=== PATIENT | female | born 1965 | race Caucasian/White ===

== ENCOUNTER 2024-11-18 13:43 | Outpatient (CLI) | payer BC, OTHER, SELFPAY ==
--- NOTE | ~2024-11-18 | CT_ITS ---
CT of the Abdomen and Pelvis: Indication: Hematuria Technique: 2.5 mm axial scans were obtained through the abdomen and pelvis prior to and following in travenous administration of 130 cc of Omnipaque 350. Dose reduction technique was used on this scan b y utilizing automated exposure control and iterative reconstruction technique. The dose-length produc t (DLP) was 2774.29 mGy-cm. Findings: Scans through the lung bases there is a 5 mm basilar pulmonary nodule (axial image 30). Th ere is a 1.5 x 0.9 cm nodular opacity in the medial right middle lobe (axial image 12). Partially alden ged tubular structure present left lower lobe on image 1, with imaging appearance suggestive of AVM. There is a 1.7 x 1.0 cm ovoid stone at the left renal pelvis. There is mild left hydronephrosis. [place] tional left renal stones measure 1.0 cm and 1.1 cm in maximum diameter. Nonobstructing right renal st ones measuring up to 0.5 cm in maximum diameter. No ureteral stone or hydronephrosis on the right pedro e. There is diffuse fatty infiltration of the liver probably present. The spleen, pancreas, and adrenal glands are within normal limits. Cholecystectomy clips are present. No evidence of aortic aneurysm. No lymphadenopathy. No bowel obstruction or bowel wall thickening. There is no evidence to suggest acute appendicitis. Images through the pelvis were performed. Urinary bladder unremarkable. Status post hysterectomy. No pelvic mass. No ascites. Impression: 1.7 x 1.0 cm left renal pelvis stone with mild left hydronephrosis. Additional bilateral nonobstructing stones, as detailed above, left larger than right. Diffuse fatty infiltration of liver. Partially imaged suspected left lower lobe pulmonary AVM, as noted above. Additional pulmonary nodule s at the right lung base, largest measuring 1.5 cm the right middle lobe. Dedicated contrast-enhanced chest CT recommended to further evaluate the suspected AVM, as well as the right middle lobe nodule. Reviewed, dictated and finalized at location M. Impression: 1.7 x 1.0 cm left renal pelvis stone with mild left hydronephrosis. Additional bilateral nonobstructing stones, as detailed above, left larger than right. Diffuse fatty infiltration of liver. Partially imaged suspected left lower lobe pulmonary AVM, as noted above. Addit ional pulmonary nodules at the right lung base, largest measuring 1.5 cm the ri ght middle lobe. Dedicated contrast-enhanced chest CT recommended to further ev aluate the suspected AVM, as well as the right middle lobe nodule.
--- OUTSIDE RECORDS SUMMARY | 2024-11-18 15:08 | XMS_ITS | Encounter Summary ---
Author Organization [facility] Address [address] [place] [address] Care Team Providers Care Skirt Clipper Name Role Phone Unavailable Primary Care Provider Unavailabl e Encounter Details Date Type Department Care Team (Late st Contact Info) Description 01/25/2020 Lab Requisition [facility] DermPath Lab [address] [facility], [facility] [place] [address] Lupe Davis DO [address] [facility] [address] [place] [address] Social History Tobacco Use Types Packs/Day Years Used Date Smoking Tobacco: Never Assessed Comments Unknown Sex and Gender Information Value Date Recorded Sex Assigned at Not on file Legal Sex Female 4:24 PM CDT Gender Identity Not on file Sexual Orientation Not on file documented as of this encounter Plan of Treatment Not on file documented as of this encounter Procedures Procedure Name Priority Date/Time Associated Diagnosis Comments DERMATOPATHOLOGY Routine 01/21/2020 12:0 0 AM CDT documented in this encounter Results * DERMATOPATHOLOGY (01/21/2020 12:00 AM CDT) Case Report Dermatopathology Report Case: [id number] Authorizing Provider: Lupe Davis DO Collected: 01/21/2020 12:00 AM Ordering Location: [facility] DermPath Lab Received: 01/25/2020 12:04 PM Pathologist: Daysi Loving MD Specimen: Skin, right upper arm 0 4:32 PM CDT DERMATOPATHOLOGY LABORATORY Final Diagnosis Specimen A. SKIN, right upper arm: COMEDONE (L70.8) HEALING SKIN CHANGES (L90.5) (see microscopic description) 0 4:32 PM CDT DERMATOPATHOLOGY LABORATORY Clinical History Folliculitis vs PN R/O NMSC bleeding. 0 4:32 PM CDT DERMATOPATHOLOGY LABORATORY Gross Description Specimen A: Received is one formalin filled container labeled with the patient's name and designated right upper arm. The specimen consists of a shave measuring [id number]. Jar 0. 0 4:32 PM CDT DERMATOPATHOLOGY LABORATORY Microscopic Description Specimen A. SKIN, right upper arm: There is a dilated follicular infundibulum with keratinous plug. There is adjacent epidermal hyperplasia beneath which there are vascular proliferation, fibroblasts, and an edematous stroma. There is no evidence of epithelial dysplasia or malignancy in the sections examined. 0 4:32 PM CDT DERMATOPATHOLOGY LABORATORY Disclaimer An external and internal positive and negative controls are appropriate for the histochemical, immunohistochemical and immunofluorescence stain(s) in this case (if any), except where stated explicitly. The performance characteristics of the stain(s) cited in this report were developed and its performance characteristic determined by the Dermatopathology Laboratory at [facility], directed by Dr. Verónica Mendoza. These tests need not be, and therefore are not, approved by the [place] Food and Drug Administration. The tests are used for clinical purposes. Billing Codes Specimen Charges Stain Charges 44854 1 0 4:32 PM CDT DERMATOPATHOLOGY LABORATORY Embedded Images 0 4:32 PM CDT DERMATOPATHOLOGY LABORATORY Pathology/Cytolog y TISSUE SPECIMEN FROM SKIN / Unknown 01/21/2020 01/25/2020 12:04 PM CDT us Lupe Davis DO LAB - PATHOLOGY/CYTOLOGY ORDERABLES Final Result DERMATOPATHOLOGY LABORATORY [facility] - Department of Dermatology Risk Control Specialist [address] [address], [facility] [phone] documented in this encounter Visit Diagnoses Not on filedocumented in this encounter
--- OUTSIDE RECORDS SUMMARY | 2024-11-18 15:08 | XMS_ITS | Encounter Summary ---
Author Organization [facility] Address [address] [place] [address] Care Team Providers Care Public Aid Eligibility Assistant Name Role Phone Unavailable Primary Care Provider Unavailabl e Encounter Details Date Type Department Care Team (Late st Contact Info) Description 05/05/2019 Lab Requisition [facility] DermPath Lab [address] [facility], [place] [address] Lupe Davis DO [address] [facility] [address] [place] [address] Social History Tobacco Use Types Packs/Day Years [...] Priority Date/Time Associated Diagnosis Comments DERMATOPATHOLOGY Routine 05/04/2019 12:0 0 AM CDT documented in this encounter Results * DERMATOPATHOLOGY (05/04/2019 12:00 AM CDT) Case Report Dermatopathology Report Case: [id number] Authorizing Provider: Lupe Davis DO Collected: 05/04/2019 12:00 AM Ordering Location: [facility] DermPath Lab Received: 05/05/2019 12:15 PM Pathologist: Kailey Hernadez MD Specimens: A) - Skin, right upper arm B) - Skin, right forearm C) - Skin, left FA distal D) - Skin, left FA proximal 9 1:21 PM CDT DERMATOPATHOLOGY LABORATORY Final Diagnosis Specimen A. SKIN, right upper arm: BASAL CELL CARCINOMA, SUPERFICIAL MULTIFOCAL (C44.612) Specimen B. SKIN, right forearm: ACTINIC KERATOSIS, LICHENOID (L57.0) Specimen C. SKIN, left FA distal: ACTINIC KERATOSIS, PIGMENTED (L57.0) Specimen D. SKIN, left FA proximal: ACTINIC KERATOSIS, LICHENOID (L57.0) 1:21 PM [facility] [place] 2[place] DERMATOPATHOLOGY LABORATORY Clinical History A-B: R/O NMSC. C: R/O MM. D: R/O NMSC. 1:21 PM [facility] [place] DERMATOPATHOLOGY LABORATORY Gross Description Specimen A: Received is one formalin filled container labeled with the patient's name and designated right upper arm. The specimen consists of a shave measuring [id number]. Jar 0. Specimen B: Received is one formalin filled container labeled with the patient's name and designated right forearm. The specimen consists of a shave measuring [id number]. Jar 0. Specimen C: Received is one formalin filled container labeled with the patient's name and designated left FA distal. The specimen consists of a shave measuring [id number]. Jar 0. Specimen D: Received is one formalin filled container labeled with the patient's name and designated left FA proximal. The specimen consists of a shave measuring [id number]. Jar 0. 1:21 PM [facility] [place] 2[facility] DERMATOPATHOLOGY LABORATORY Microscopic Description Specimen A. SKIN, right upper arm: Attached to the undersurface of the epidermis, there are small aggregates of basaloid cells with a high nuclear to cytoplasmic ratio and peripheral palisading. Specimen B. SKIN, right forearm: There is focal parakeratosis. The lower half of the epidermis shows disorderly maturation of keratinocytes with nuclear pleomorphism. The dermis shows a band-like, chronic inflammatory infiltrate with occasional apoptotic keratinocytes and some basal vacuolar alteration. Specimen C. SKIN, left FA distal: There is alternating orthokeratosis and parakeratosis. Along the undersurface of the epidermis, there are buds of atypical keratinocytes in a disorderly arrangement. There is prominent pigmentation in some of the keratinocytes. Specimen D. SKIN, left FA proximal: There is focal parakeratosis. The lower half of the epidermis shows disorderly maturation of keratinocytes with nuclear pleomorphism. The dermis shows a band-like, chronic inflammatory infiltrate with occasional apoptotic keratinocytes and some basal vacuolar alteration. 9 1:21 PM CDT DERMATOPATHOLOGY LABORATORY Disclaimer An external and internal positive and negative controls are appropriate for the histochemical, immunohistochemical and immunofluorescence stain(s) in this case (if any), except where stated explicitly. The performance characteristics of the stain(s) cited in this report were developed and its performance characteristic determined by the Dermatopathology Laboratory at [facility], directed by Dr. Verónica Mendoza. These tests need not be, and therefore are not, approved by the [place] Food and Drug Administration. The tests are used for clinical purposes. Billing Codes Specimen Charges Stain Charges 63659 46399 [id number] 1 1 1 1 9 1:21 PM CDT DERMATOPATHOLOGY LABORATORY Embedded Images 9 1:21 PM CDT DERMATOPATHOLOGY LABORATORY Pathology/Cytology TISSUE SPECIMEN FROM SKIN / Unknown 05/04/2019 05/05/2019 12:15 PM CDT Miscellaneous samples (specimen) TISSUE SPECIMEN FROM SKIN / Unknown 05/04/2019 05/05/2019 12:15 PM CDT Miscellaneous samples (specimen) TISSUE SPECIMEN FROM SKIN / Unknown 05/04/2019 05/05/2019 12:15 PM CDT Miscellaneous samples (specimen) TISSUE SPECIMEN FROM SKIN / Unknown 05/04/2019 05/05/2019 12:15 PM CDT us Lupe Davis DO LAB - PATHOLOGY/CYTOLOGY ORDERABLES Final Result DERMATOPATHOLOGY LABORATORY [facility] - Department of Dermatology [address] [place] [address] [address] [place] [address], [facility] [phone] documented in this encounter Visit Diagnoses Not on filedocumented in this encounter
--- OUTSIDE RECORDS SUMMARY | 2024-11-18 15:08 | XMS_ITS | Clinical Summary ---
Author Organization [facility] Office Center Address [address] [place] [address] Care Team Providers Care Recreation Teacher Name Role Phone Elodia Brunson NP Primary Care Provider [phone] Allergies No known active allergies Medications meloxicam (MOBIC) 15 mg tablet Take 1 tablet (15 mg total) by mouth daily 3 Active desloratadine (CLARINEX) 5 mg tabletIndicatio ns:Non-seasonal allergic rhinitis, unspecified trigger Take 1 tablet by mouth daily as needed for congestion. 90 tablet 3 4 Active valACYclovir (VALTREX) 1 gram tabletIndicatio ns:Recurrent cold sores TAKE 2 TABLETS (2,000 MG TOTAL) BY MOUTH TWICE A DAY 12 tablet 4 Active atorvastatin (LIPITOR) 20 mg tablet TAKE 1 TABLET BY MOUTH EVERY DAY 100 tablet 5 Active bisoprolol (ZEBETA) 5 mg tablet TAKE 1 TABLET (5 MG TOTAL) BY MOUTH DAILY. 100 tablet 5 Active atorvastatin (LIPITOR) 20 mg tablet Take 1 tablet (20 mg total) by mouth daily 90 tablet 1 4 025 Discontinued bisoprolol (ZEBETA) 5 mg tablet Take 1 tablet (5 mg total) by mouth daily 90 tablet 1 4 025 Discontinued sulfamethoxazol e-trimethoprim (BACTRIM DS) 800-160 mg per tabletIndicatio ns:UTI symptoms Take 1 tablet by mouth 2 (two) times a day for 7 days 14 tablet 5 025 Active Problems Problem Noted Date Diagnosed Date Encounter for diabetic foot exam 06/16/2024 Assessment & Plan (06/16/2024 7:40 AM SUPERVISOR PAPER MACHINE): Diabetic foot exam performed with monofilament, no abnormal findings Class 3 severe obesity due t o excess calories with body mass index (BMI) of 45.0 to 49.9 in adult 06/15/2024 Assessment & Plan (06/15/2024 11:19 AM SUPERVISOR PAPER MACHINE): Chronic, stable Encouraged to: Make healthy food choices, limiting intake of concentrated sweets, cholesterol, and saturated fat Monitor daily caloric intake and portion sizes Exercise most days of the week for a goal of at least 150 minutes of exercise per week Encounter for screening mamm ogram for malignant neoplasm of breast 07/10/2023 Elevated ALT measurement 07/10/2023 Assessment & Plan (06/15/2024 11:19 AM SUPERVISOR PAPER MACHINE): Chronic, stable Encouraged continued weight loss and a low-fat, low-cholesterol diet Will monitor for stability Assessment & Plan (07/10/2023 4:15 AM SUPERVISOR PAPER MACHINE): Chronic, recurrent, normal at last check Reviewed lab results dated 07/05/2023 Encouraged continued weight loss, low-fat, low-cholesterol diet Ordered CMP to be done prior to next visit Vitamin D deficiency 01/09/2023 Assessment & Plan (06/15/2024 11:17 AM SUPERVISOR PAPER MACHINE): Chronic, stable, not controlled Recommended vitamin D3 5000 IU daily with a meal Will monitor for stability Assessment & Plan (07/10/2023 4:18 AM SUPERVISOR PAPER MACHINE): Chronic, improved Reviewed labs dated 07/05/2023 Recommended vitamin D3 2000 IU daily with a meal Ordered vitamin-D 25 OH to be done prior to next visit Assessment & Plan (01/09/2023 5:25 AM CDT): Chronicity and stability unknown-recommended vitamin D3 2000 IU daily with a meal. Ordered vitamin-D 25 OH to be done in 3 months along with fasting lipid panel TSH level. Elevated TSH 01/09/2023 Assessment & Plan (06/15/2024 11:18 AM SUPERVISOR PAPER MACHINE): Chronicity unknown, normal at most recent check Will monitor for stability Assessment & Plan (07/10/2023 4:15 AM SUPERVISOR PAPER MACHINE): New diagnosis, normal at most recent check Reviewed lab results dated 07/05/2023 Will continue to monitor on occasion Assessment & Plan (01/09/2023 5:34 AM CDT): New diagnosis, normal free T4 and thyroid peroxidase antibodies-ordered TSH level to be drawn in 3 months. On statin therapy 01/09/2023 Assessment & Plan (01/09/2023 5:34 AM CDT): Switch from simvastatin to atorvastatin, ordered hepatic function panel to be done in 3 months with lipid panel. History of carcinoma in situ of anal canal 10/10 Overview (10/10/2022): Added automatically from request for surgery [id number] Assessment & Plan (01/09/2023 5:21 AM CDT): Encouraged to get screening colonoscopies as recommended by bite block maker. Encounter for vitamin deficiency screening 06/26 Assessment & Plan (06/27/2022 12:30 AM SUPERVISOR PAPER MACHINE): Ordered vitamin-D 25 OH. Screening for deficiency anemia 06/26/2022 Assessment & Plan (06/27/2022 12:25 AM SUPERVISOR PAPER MACHINE): Ordered CBC. 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 Assessment & Plan (06/27/2022 12:25 AM SUPERVISOR PAPER MACHINE): Chronic, stable, controlled with medication-continued on Valtrex as directed as needed, refills sent to pharmacy per request. Need for vaccination 06/26/2022 Assessment & Plan (06/27/2022 12:27 AM SUPERVISOR PAPER MACHINE): Influenza vaccine given. Chronic pain of both knees 10/18/2021 Assessment & Plan (06/15/2024 11:17 AM SUPERVISOR PAPER MACHINE): Chronic, stable Continued on meloxicam Can refer for x-rays and/or to orthopedic surgeon for further evaluation and management when interested Assessment & Plan (01/09/2023 5:23 AM CDT): Chronic, stable-advised OTC medication as directed as needed. Can refer for x- rays and/or to orthopedic surgeon for further evaluation and management when interested. Assessment & Plan (10/18/2021 9:20 PM CDT): Had injections years ago and MRI as well. For now she is maintaining. Advise otc voltaren. Consider xrays if pain persists and she wishes to investigate further Controlled type 2 diabetes swetha hinton without complication, without long-term current use of insulin 03/09/2021 Assessment & Plan (06/15/2024 11:16 AM SUPERVISOR PAPER MACHINE): Chronic, uncontrolled/worsened, not on medication Discussed options for treatment, is considering Encouraged weight loss efforts Assessment & Plan (07/10/2023 4:17 AM SUPERVISOR PAPER MACHINE): Chronic, stable Reviewed most recent hemoglobin A1c dated 12/17/2022 Encouraged continued weight loss Ordered CMP and hemoglobin A1c to be done prior to next Assessment & Plan (01/09/2023 5:27 AM CDT): Chronic, stable-encouraged weight loss efforts. Reviewed recent CMP and hemoglobin A1c at visit today. Assessment & Plan (06/27/2022 12:29 AM SUPERVISOR PAPER MACHINE): Chronic, improved with weight loss-ordered hemoglobin A1c and CMP to be done prior to next visit. Encouraged efforts at continued weight loss. Assessment & Plan (06/14/2021 3:42 PM SUPERVISOR PAPER MACHINE): ha1c is 5.8 today- cont saxenda Assessment & Plan (03/09/2021 8:39 AM CDT): ha1c has decreased from 6.4>5.9- this is a tremendous improvement! Cont saxenda. Annual physical exam 09/22/2019 Assessment & Plan (06/15/2024 11:13 AM SUPERVISOR PAPER MACHINE): Reviewed past and current medical history, surgical history, social history, family history, current medications, and allergies. A ROS and PE were performed. Labs were ordered. Discussed screening colonoscopy, screening mammogram, monthly breast self-exams, bone density testing, and recommended immunizations. Patient will follow-up in 6 months, sooner if needed. Assessment & Plan (01/09/2023 5:29 AM CDT): Reviewed past and current medical history, surgical history, social history, family history, current medications, and allergies. A ROS and PE were performed. Labs were ordered. Discussed screening colonoscopy, well woman exam/cervical cancer screening, screening mammogram, monthly breast self-exams, bone density testing, and recommended immunizations. Patient will follow-up in 6 months, sooner if needed. Assessment & Plan (06/14/2021 3:42 PM SUPERVISOR PAPER MACHINE): Second shingrix given today Advise mrna booster in 1-2 weeks after shingrix utd on flu shot, tdap Cont to work on diet and weight loss rtc 4 months Assessment & Plan (09/22/2019 3:17 PM SUPERVISOR PAPER MACHINE): Wear sunscreen while outdoors. Wear seatbelts while in a vehicle. Do not text and drive. Follow a heart healthy diet and lifestyle. Consume 5-7 servings of fruits and vegetables a day. Maintain/attain normal body weight. Maintain good sleep schedule and sleep habits. I recommend that all patients follow a diet that is high in fruits and vegetables and low in processed foods such as sugar and foods that are made with white flour. I recommend using beneficial fats such as olive oil, nuts, seeds and berries and avoiding saturated animal fats. Please stay physically active to the extent that you are able. Test results: if you have not received communication about test results within 7 days of the test being performed, please contact the office. Consider getting Shingrix (shingles vaccine). This is a 2-shot series with each injection given 2-6 months apart. You can obtain the vaccine at most major pharmacies without a prescription Venous stasis dermatitis of both lower extremiti es 09/22/2019 Assessment & Plan (06/15/2024 11:14 AM SUPERVISOR PAPER MACHINE): Chronic, episodic, currently asymptomatic Will monitor for stability Encouraged to elevate legs when able and to wear compression socks or stockings Assessment & Plan (01/09/2023 5:33 AM CDT): Chronic, stasis-will continue to monitor for worsening symptoms or edema. Encouraged elevation of extremities when able and compression socks or stockings. Assessment & Plan (09/22/2019 3:52 PM SUPERVISOR PAPER MACHINE): Work on wt loss Get up and move around while at work ,periodically Wear compression stockings when travelling long distance History of basal cell carcinoma (BCC) of skin Overview (09/22/2019): r upper arm, Dr Davis Assessment & Plan (01/09/2023 5:28 AM CDT): Encouraged to follow-up with dermatology as recommended. Assessment & Plan (09/22/2019 3:53 PM SUPERVISOR PAPER MACHINE): Sunscreen Cont close surveillance with digital developer Non-seasonal allergic rhinitis 09/22/2018 Overview (09/22/2019): Allergic to dust and mold Assessment & Plan (06/15/2024 11:11 AM SUPERVISOR PAPER MACHINE): Chronic, stable, controlled with medication Continued on Clarinex Assessment & Plan (01/09/2023 5:32 AM CDT): Chronic, stable, controlled with medication-continued on Clarinex. Assessment & Plan (09/22/2019 3:36 PM SUPERVISOR PAPER MACHINE): Cont clarinex daily Mixed hyperlipidemia 09/23/2017 Assessment & Plan (06/15/2024 11:12 AM SUPERVISOR PAPER MACHINE): Chronic, uncontrolled, with minimally elevated triglycerides and low HDL Continued on atorvastatin Recommended low-fat/low-cholesterol diet, high in fiber and plant protein Assessment & Plan (07/10/2023 4:16 AM SUPERVISOR PAPER MACHINE): Chronic, uncontrolled, with minimally elevated triglycerides and LDL (184, 102 respectively) Continued on atorvastatin Recommended low-fat/low-cholesterol diet, high in fiber implant protein Ordered lipid panel to be done prior to next visit Assessment & Plan (01/09/2023 5:19 AM CDT): Chronic, stable, uncontrolled-discontinued simvastatin. Started on atorvastatin 20 mg once daily. Ordered lipid panel and hepatic function panel to be done in approximately 3 months for further evaluation of lipids. Assessment & Plan (06/27/2022 12:26 AM SUPERVISOR PAPER MACHINE): Chronic, stable, with slight elevation in triglycerides at last check-continued on simvastatin. Lipid panel ordered prior to next visit. Assessment & Plan (02/23/2022 10:53 AM CDT): c Assessment & Plan (06/14/2021 3:40 PM SUPERVISOR PAPER MACHINE): Suspect cholesterol will be much better, check now, dec dose if possible and recheck before our next appt in 4 months at which time I Hope to stop it Assessment & Plan (05/06/2020 3:16 PM CDT): Cont low chol diet and medication Cont to monitor liver panel Assessment & Plan (09/22/2019 3:38 PM SUPERVISOR PAPER MACHINE): Take the chol pill daily in am. Lipids in 6mos Essential (primary) hypertension 09/19/2017 Assessment & Plan (06/15/2024 11:11 AM SUPERVISOR PAPER MACHINE): Chronic, stable, controlled with medication Continued on bisoprolol Assessment & Plan (01/23/2024 12:30 PM CDT): Chronic, stable, controlled with medication Continued on bisoprolol Assessment & Plan (07/10/2023 4:15 AM SUPERVISOR PAPER MACHINE): Chronic, stable, controlled with medication Continued on bisoprolol Ordered CMP be done prior to next visit Assessment & Plan (01/09/2023 5:19 AM CDT): Chronic, stable, controlled with medication-reviewed recent CMP. Continued on bisoprolol. Assessment & Plan (06/27/2022 12:28 AM SUPERVISOR PAPER MACHINE): Chronic, stable, controlled with medication-continued bisoprolol. Ordered CMP to be done prior to next visit. Assessment & Plan (02/23/2022 10:52 AM CDT): Controlled on bisoprolol Assessment & Plan (06/14/2021 3:40 PM SUPERVISOR PAPER MACHINE): Looking great! With weight loss, d/c hctz and cont on bisoprolol only- possibly dc this at our next appt! Assessment & Plan (03/09/2021 8:37 AM CDT): bp looks great! No changes today, my hope is to eventually stop her bp meds but for now woud continue Assessment & Plan (01/05/2021 12:30 PM CDT): Uncontrolled, but likely d/t stress Did take her ziac this am Check at home and get me numbers! Assessment & Plan (05/06/2020 3:02 PM CDT): bp is controlled Cont regimen Try to exercise more regularly for cv health Assessment & Plan (09/22/2019 3:36 PM SUPERVISOR PAPER MACHINE): Follow low sodium DASH Diet. Exercise regularly for CV health and weight loss. Achieve or Maintain normal BMI/Weight. Take medications as prescribed. Report if having porblems with the medication or if develops Chest pains. Monitor BP occly and record. Report if BP consistently over 160/90 or under 90/60 and dizzy and LH. BP is controlled and stable. Mixed incontinence urge and stress 09/19/2017 Assessment & Plan (06/15/2024 11:13 AM SUPERVISOR PAPER MACHINE): Chronic, stable, controlled without medication Will monitor for stability Assessment & Plan (01/09/2023 5:32 AM CDT): Chronic, stable, controlled without medication-will continue to monitor for worsening symptoms,if occurs and is interested, can refer for pelvic floor physical therapy, consider medication, and/or refer to supervisor tank cleaning for further evaluation and management. Personal history of colon cancer, stage II 09/19 Overview (09/22/2019): no chemo/rx, just removal of the tumors and ff up areas carly, age 38, 3 large polyps cancerous removed. Colonoscopy 05/2010, Dr Reynolds. Assessment & Plan (01/09/2023 5:26 AM CDT): Encouraged to get screening colonoscopy as recommended by bite block maker. Assessment & Plan (06/14/2021 3:41 PM SUPERVISOR PAPER MACHINE): Repeat is due 11/2022 Assessment & Plan (09/22/2019 3:35 PM SUPERVISOR PAPER MACHINE): Patient to check with Dr Reynolds as to when her next ff up colonoscopy is due Resolved Problems Problem Noted Date Diagnosed Date Resolved Date UTI symptoms 01/23/2024 06/15/2024 Assessment & Plan (01/23/2024 12:29 PM CDT): Acute Urine dip positive for protein and blood, sent for urine culture Started on Keflex 500 mg twice daily Reviewed supportive care measures Strict return precautions given Acute cough 06/11/2023 07/10/2023 Assessment & Plan (06/11/2023 10:35 AM SUPERVISOR PAPER MACHINE): VSS (low grade temp 99.5F), NAD, lungs CTAB Sx duration 2.5 weeks approximately Recent COVID 05/23/2023 Possible bronchitis . Ddx secondary bacterial PNA post COVID Medrol dose pack Augmentin, azithromycin Tessalon as needed as cough suppressant ER for CP, SOB, vomiting, dizziness, persisting fevers Colon polyps 10/10/2022 01/09/2023 Overview (10/10/2022): Added automatically from request for surgery [id number] Encounter to establish care 06/26/2022 01/09/2023 Assessment & Plan (06/27/2022 12:30 AM SUPERVISOR PAPER MACHINE): Reviewed past and current medical history, surgical history, social history, family history, current medications, and allergies. A ROS and PE were performed. Medication was refilled and labs were ordered. Discussed screening colonoscopy, well woman exam/cervical cancer screening, screening mammogram, monthly breast self-exams, and recommended immunizations. Patient will follow-up in 6 months for annual exam, sooner if needed. Scalp lesion 03/09/2021 01/09/2023 Assessment & Plan (03/09/2021 8:38 AM CDT): No overlying skin changes, very small dave growth on scalp. No further workup indicated at this time. If she notices it growing, notices skin changes overlying this lesion or develops headaches would get CT Left leg swelling 01/05/2021 01/09/2023 Assessment & Plan (01/05/2021 12:34 PM CDT): Venous doppler to r/o dvt B/l swelling but L def > R Echo to r/o diastolic dysfunction and chf Ab US liver as transaminitis Transaminitis 01/05/2021 01/09/2023 Assessment & Plan (06/27/2022 12:25 AM SUPERVISOR PAPER MACHINE): Chronic, present in 2019 and 2020, now resolved upon most recent check, likely improved with weight loss-will continue to monitor periodically. Encouraged continued weight loss. Assessment & Plan (01/05/2021 12:36 PM CDT): On statin Has had weight gain Liver us to further investigate Croup 09/22/2019 05/05/2020 Assessment & Plan (09/22/2019 3:51 PM SUPERVISOR PAPER MACHINE): Doxycycline 100mg po bid x 10d Coricidin HBP or guaifenesin DM ok to take for the cough Rest and hydrate Call if high fever, sob, worsening sx Encounters Date Type Department Care Team Description 10/21/2024 Telephone [facility] at [address] [phone] Elodia Brunson NP 10/20/2024 Telephone [facility] at [address] [phone] Elodia Brunson NP Recommendation Request 10/16/2024 Results Follow-Up [facility] at [address] [phone] Ann Larsen NP 10/15/2024 9:31 PM CDT - 10/15/2024 11:59 PM CDT Hospital Encounter [address] [address] UTI symptoms Discharge Disposition: Discharge to home or self care 10/15/2024 4:30 PM CDT Office Visit [facility] at [address] [phone] Ann Larsen NP UTI symptoms (Primary Dx); Gross hematuria 10/15/2024 Telephone [facility] [place] [address] [place] [address] Ann Larsen NP Blood in Urine 10/15/2024 Nurse Triage [facility] at [place] [address] [place] [address] Susan Bradford RN from Last 3 Months Immunizations Immunization Administration Dates Next Due Influenza, Quadrivalent, Janice l Culture-based MDCK, Preservative Free, Antibiotic Free, Intramuscular 05/22/2021 Influenza, Quadrivalent, Spl it, Preservative Free, Intramuscular 07/08/2023,06/27/2022,04/20/2020 Influenza, Trivalent, Preser vative Free, Intramuscular 06/15/2024 Pfizer SARS-CoV-2 Monovalent Vaccination (12+ Yrs) PURPLE 10/25/2020,10/03/2020 Pneumococcal Conjugate PCV 13 09/22/2018 Pneumococcal Conjugate Pcv20 06/15/2024 Tdap 03/19/2022,03/04/2014 ZOSTER Recombinant 06/14/2021,03/08/2021 Surgical History Surgery Date Site/Laterality Comments COLONOSCOPY W/ BIOPSIES FOOT SURGERY GALLBLADDER SURGERY RECTAL SURGERY SKIN CANCER EXCISION Right basel cell carcinoma on Right arm, Dr Davis HYSTERECTOMY partial BREAST BIOPSY 06/25/2018 Left CHOLECYSTECTOMY Medical History Medical History Date Comments Hyperlipidemia Benign hypertension Personal history of colonic polyps Allergic rhinitis Malignant neoplasm cervix (HCC) Herpes zoster Colon cancer (HCC) 2003 Cervical cancer (HCC) 1995 Arthritis knees Colon polyps 10/10/2022 Added automatica lly from request for surgery [id number] Scalp lesion 03/09/2021 Transaminitis 01/05/2021 Left leg swelling 01/05/2021 Family History Medical History Relation Name Comments Cancer Maternal Grandmother Grandmother Heart disease Maternal Grandmother Grandmother Breast cancer Neg Hx Relation Name Status Comments Father Alive Maternal Grandmother Grandmother Mother Alive Social History Tobacco Use Types Packs/Day Years Used Date Smoking Tobacco: Never Smokeless Tobacco: Never Tobacco Cessation:Counseling Given: Not Answered Alcohol Use Standard Drinks/Week Comments Yes 0 (1 standard drink = 0.6 oz pur e alcohol) AUDIT-C Answer Date Recorded Q1: How often do you have a drink containing alc ohol? Monthly or less 12/14/2022 Q2: How many drinks containi ng alcohol do you have on a typical day when you are drinking? 1 or 2 12/14/2022 Q3: How often do you have si x or more drinks on one occasion? Less than monthly 12/14/2022 PHQ-2 Answer Date Recorded PHQ-2 Total Score (If total score is 3 or more points, staff should administer the PHQ-9) 0 06/15/2024 Personal Safety Answer Date Recorded Have you ever been in or are you currently in a harmful physical or emotional relationship or is someone making you feel afraid or unsafe? Denies 12/14/2022 Comments No Sex and Gender Information Value Date Recorded Sex Assigned at Not on file Legal Sex Female 6:21 AM SUPERVISOR PAPER MACHINE Gender Identity Female 12/29/2020 6:34 AM CDT Sexual Orientation Straight 10/04/2020 6: 47 AM SUPERVISOR PAPER MACHINE Occupation Industry Job Start Date Job End Date Not on file Not on file Not on file Not on file Obstetrics History Para Term AB IAB SAB Ectopic Multiple Livin g Live Births 5 3 3 Date Outcome GA Total Labor Labor/2nd/3rd Weight Sex Type Anes PTL Celia A1 A5 Name Clin Term Term Term Last Filed Vital Signs Vital Sign Reading Time Taken Comments Blood Pressure 134/80 10/15/2024 4:24 PM CDT Pulse 85 10/15/2024 4:24 PM CDT Temperature 36.7 C (98.1 F) 10/15/2024 4:24 PM CDT Respiratory Rate 18 10/15/2024 4:24 PM CDT Oxygen Saturation 96% 10/15/2024 4:24 PM CDT Inhaled Oxygen Concentration - - Weight 120.2 kg (265 lb) 10/15/2024 4:24 PM CDT Height 155.5 cm (5' 1.22 ) 10/15/2024 4:24 PM CD T Body Mass Index 49.71 10/15/2024 4:24 PM CDT Plan of Treatment Health Maintenance Due Date Last Done Comments Albumin Creatinine Ratio, Urine 1966 Hepatitis C Screening 1965 Dilated Eye Exam 1966 Hepatitis B Screening 1984 Zoster Vaccine (2 of 2) 06/14/2021 06/14/2021, 03/08 Covid-19 Vaccine (5 - 2023-2 5 season) 2024 02/26/2022, 07/08/2021, 10/25/2020, Additional history exists Hemoglobin A1C 11/21/2024 05/23/2024, 12/03, 01/13/2022, Additional history exists Lipid Panel 05/23/2025 05/23/2024, 12/0 08/2022, 12/17/2022, Additional history exists eGFR 05/23/2025 05/23/2024, 12/03, 01/13/2022, Additional history exists Depression Screening 06/15/2025 06/15/2024, 01/23/2024, 01/07/2023, Additional history exists Foot Exam 06/15/2025 06/15/2024 Regular Well Visit/Exam 18-64 06/15/2025, 01/07/2023, 06/14/2021, Additional history exists Breast Cancer Screening-Mammogram 07/27/2025 07/27/2024, 07/25/2023, 07/12/2022, Additional history exists Colon Cancer Screening-Colonoscopy 12/15/2027 12/14/2022, 11/11/2017 DTaP/Tdap/Td Vaccine (3 - Td or Tdap) 03/19/2032 03/19/2022, 03/04/2014 Cervical Cancer Screening Discontinued 10/03/2017, 08/2017 Colon Cancer Screening-CT Colonography Discontinued 12/14/2022, 11/11/2017 Colon Cancer Screening-DNA Stool Discontinued 12/15/19, 11/11/2017 Colon Cancer Screening-FIT Discontinued 12/14/2022, Colon Cancer Screening-Sigmoidoscopy Discontinued 12/14/2022, 11/11/2017 Influenza Vaccine Completed 06/15/2024, , 06/27/2022, Additional history exists Pneumococcal vaccine <65 Completed 06/15/2024, 09/05 Procedures Procedure Name Priority Date/Time Associated Diagnosis Comments URINE CULTURE Routine 10/15/2024 9:35 PM CDT UTI symptoms POCT URINALYSIS DIPSTICK Routine 10/15/2024 4:40 PM CDT UTI symptoms SCREENING MAMMOGRAM BILATERAL W MICHOACANO Schedule Routine, Read Routine (OP Routine) 07/27/2024 1:17 PM SUPERVISOR PAPER MACHINE Screening mammogram, encounter for COMPREHENSIVE METABOLIC PANEL Routine 05/23/2024 8:50 AM CDT Elevated ALT measurement Class 3 severe obesity due to excess calories without serious comorbidity with body mass index (BMI) of 45.0 to 49.9 in adult (HCC) Essential (primary) hypertension Prediabetes HEMOGLOBIN A1C Routine 05/23/2024 8:50 AM CDT Class 3 severe obesity due to excess calories without serious comorbidity with body mass index (BMI) of 45.0 to 49.9 in adult (HCC) Prediabetes LIPID PANEL Routine 05/23/2024 8:50 AM CDT Mixed hyperlipidemia COLONOSCOPY 12/14/2022 8:07 AM CDT THINPREP SERVICE BAR CASHIER PAP (IMAGE GUIDED) LIQUID-BASED PREP Routine 10/03/2017 3:52 PM SUPERVISOR PAPER MACHINE from Last 3 Months or Most Recently Relevant to Health Maintenance Results * Urine culture Urine, clean voided (10/15/2024 9:35 PM CDT) Report Final Report: Less than 100,000 colonies/mL (clinically insignificant growth based on current clinical standards) Organism (CLINICALLY INSIGNIFICANT [facility]TH [facility] Urine, clean voided 10/15/2024 9:35 PM CDT 10/15/2024 9:47 PM CDT Narrative [facility] - 10/17/2024 8:33 AM CDT Testing performed by [facility] ([phone]) Ann Larsen NP LAB MICROBIOLOGY - GENERAL [place] Final Result [facility] Department [place] [address] * (ABNORMAL) POCT urinalysis dipstick (10/15/2024 4:40 PM CDT) Color, Urine, POC Dark Yellow Clarity, ur, POC Turbid(A) Clear Glucose, ur, POC Negative Negative MG/DL Bilirubin, ur, POC Small Negative, Small, Moderate, Large Ketones, ur, POC Negative Negative Specific [place], POC 1.030 1.003 - 1.030 Blood, ur, POC Large(A) Negative pH, ur, POC 5.5 5.0 - 8.0 Protein, ur, POC 300.(A) Negative Urobilinogen, urine, POC 0.2 0.2 - 1.0 mg/dL Nitrite, ur, POC Negative Negative Leukocytes, ur, POC Trace(A) Negative Lot Number [id number] Urine 10/15/2024 4:40 PM CDT Ann Larsen NP POINT OF CARE TEST ORDERABLES F inal Result * Screening Mammogram Bilateral [place] (07/27/2024 1:17 PM SUPERVISOR PAPER MACHINE) Anatomical Region Laterality Modality Breast Bilateral Mammography Impressions 07/27/2024 1:29 PM SUPERVISOR PAPER MACHINE BI-RADS ATLAS category (overall): 2 - Benign There is no mammographic evidence of malignancy. A 1 year screening mammogram is recommended. The patient has been or will be contacted. We recommend annual screening mammography for women at average risk of breast cancer beginning at age 40, based on guidelines of the [employer] (ACR Practice Parameter for the Performance of Screening and Diagnostic Mammography) and [place] [employer]. For women with and elevated risk of breast cancer, please refer to the ACR Practice Parameter for specific screening recommendations. The patient will be entered into a reminder system with a target due date of 1 year for her next screening exam. Narrative 07/27/2024 1:29 PM SUPERVISOR PAPER MACHINE Screening Mammogram Bilateral [place]: 07/27/24 The study was acquired using full field digital technology and interpreted from soft copy. 2D digital mammographic views, as well as 3D digital tomosynthesis were performed in the CC and MLO projections. This study was resulted using Computer-Aided Detection (CAD). CLINICAL: Screening mammogram, encounter for. Medical history includes colon cancer. History of breast cancer in Neg Hx. COMPARISONS: 07/25/2023 Screening Mammogram Bilateral [place] 07/12/2022 Screening Mammogram Bilateral [place] 07/11/2021 Screening Mammogram Bilateral [place] 06/28/2020 Screening Mammogram Bilateral [place] 04/28/2019 Screening Mammogram Bilateral [place] BREAST TISSUE: There are scattered areas of fibroglandular density. FINDINGS: Small benign appearing circumscribed masses in both breasts have not suspiciously changed. There is an unchanged biopsy clip associated with one of these masses in the lower inner left breast. There is no new suspicious finding in either breast on mammogram. Self Screening Mammogram IMG MAMMO PROCEDURES Fi nal Result * (ABNORMAL) Hemoglobin A1c (05/23/2024 8:50 AM CDT) Hgb A1C 7.0(H) <5.7 % of total Hgb [facility] Comment: For someone without known diabetes, a hemoglobin A1c value of 6.5% or greater indicates that they may have diabetes and this should be confirmed with a follow-up test. For someone with known diabetes, a value <7% indicates that their diabetes is well controlled and a value greater than or equal to 7% indicates suboptimal control. A1c targets should be individualized based on duration of diabetes, age, comorbid conditions, and other considerations. Currently, no consensus exists regarding use of hemoglobin A1c for diagnosis of diabetes for children. Blood 05/23/2024 8:50 AM CDT 05/23/2024 8:51 AM CDT Narrative [facility] - 05/24/2024 9:24 AM CDT FASTING:YES FASTING: YES Elodia Brunson NP LAB BLOOD ORDERABLES Final Resul t [facility] [address] [place] [address] * (ABNORMAL) Lipid panel (05/23/2024 8:50 AM CDT) Cholesterol 171 <200 mg/dL [facility] HDL 46(L) > OR = 50 mg/dL [facility] Triglycerides 160(H) <150 mg/dL [facility] LDL 99 mg/dL (calc) [facility] Comment: Reference range: <100 Desirable range <100 mg/dL for primary prevention; <70 mg/dL for patients with CHD or diabetic patients with > or = 2 CHD risk factors. LDL-C is now calculated using the Jazmin calculation, which is a validated novel method providing better accuracy than the Friedewald equation in the estimation of LDL-C. Justus GANDHI et al. DANGELO. 2013;310(19): 7164-0003 (http://education.Comprehensive Care/faq/JKF329) Chol/HDL ratio 3.7 <5.0 (calc) [facility] Non-HDL, (LDL+VLDL) 125 <130 mg/dL (calc) [facility] Comment: For patients with diabetes plus 1 major ASCVD risk factor, treating to a non-HDL-C goal of <100 mg/dL (LDL-C of <70 mg/dL) is considered a therapeutic option. Blood 05/23/2024 8:50 AM CDT 05/23/2024 8:51 AM CDT Narrative [facility] - 05/24/2024 9:24 AM CDT FASTING:YES FASTING: YES us Elodia Brunson NP LAB BLOOD ORDERABLES Final Resul t [facility] [address] [phone] * (ABNORMAL) Comprehensive metabolic panel (05/23/2024 8:50 AM CDT) Glucose 105(H) 65 - 99 mg/dL [facility] Comment: Fasting reference interval For someone without known diabetes, a glucose value between 100 and 125 mg/dL is consistent with prediabetes and should be confirmed with a follow-up test. BUN 10 7 - 25 mg/dL [facility] Creatinine 0.63 0.50 - 1.03 mg/dL [facility] eGFR 103 > OR = 60 mL/min/1.7 3m2 [facility] BUN/creat ratio SEE NOTE: 6 - 22 (calc) [facility] Comment: Not Reported: BUN and Creatinine are within reference range. Sodium 142 135 - 146 mmol/L [facility] Potassium, pl 4.3 3.5 - 5.3 mmol/L [facility] Chloride 104 98 - 110 mmol/L [facility] CO2 22 20 - 32 mmol/L [facility] Calcium 9.4 8.6 - 10.4 mg/dL [facility] Protein, sr 6.9 6.1 - 8.1 g/dL [facility] Albumin 4.3 3.6 - 5.1 g/dL [facility] GLOBULIN 2.6 1.9 - 3.7 g/dL (calc) [facility] Alb/glob ratio 1.7 1.0 - 2.5 (calc) [facility] Bilirubin, total 1.0 0.2 - 1.2 mg/dL [facility] Alk phos 102 37 - 153 U/L [facility] AST 35 10 - 35 U/L [facility] ALT (SGPT) 40(H) 6 - 29 U/L [facility] Blood 05/23/2024 8:50 AM CDT 05/23/2024 8:51 AM CDT Narrative [facility] - 05/24/2024 9:24 AM CDT FASTING:YES FASTING: YES us Elodia Brunson NP LAB BLOOD ORDERABLES Final Resul t [facility] [address] [address] [id number] * COLONOSCOPY (12/14/2022 8:07 AM CDT) Anatomical Region Laterality Modality Other Narrative Procedure Note Lamin Reynolds MD - 12/14/2022 8:07 AM CDT [facility] Patient Name: Madhavi Goetz Procedure Date: 12/14/2022 8:07 AM Date of : 1965 Admit Type: Outpatient Age: 57 Gender: Female Attending MD: Lamin Reynolds M.D. Room: [facility] ENDOSCOPY ROOM 02 Note Status: Finalized Procedure: Colonoscopy Indications: Personal history of colonic polyps Referring MD: Providers: Lamin Reynolds M.D. Medicines: Propofol per Anesthesia Complications: No immediate complications. Estimated Blood Loss: Estimated blood loss: none. Procedure: Pre-Anesthesia Assessment: - After reviewing the risks and benefits, thepatient was deemed in satisfactory condition to undergo the procedure. - Immediately prior to administration ofmedications, the patient was re-assessed for adequacy to receive sedatives. The benefits, risks and alternatives of theprocedure and sedation were discussed and informed consentwas obtained. All questions were answered. Please referto the signed informed consent document in the medical record. The scope was passed under direct vision.The [id number] was introduced through the anusand advanced to the the cecum, identified byappendiceal orifice and ileocecal valve. The colonoscopy was performed without difficulty. The patient tolerated the procedure well. The quality of the bowel preparation was good. The bowel preparation usedwas SUPREP. Findings: The perianal and digital rectal examinations were normal. A 2 mm polyp was found in the rectum. The polyp was sessile. Thepolyp was removed with a hot biopsy forceps. Resection and retrieval were complete. A tattoo was seen in the sigmoid colon. A post-polypectomy scar was found at the tattoo site. There was no evidence of residual polyptissue. The exam was otherwise without abnormality. Impression: - One 2 mm polyp in the rectum, removed with a hot biopsy forceps. Resected and retrieved. - A tattoo was seen in the sigmoid colon. A post-polypectomy scar was found at the tattoo site. There was no evidence of residual polyp tissue. - The examination was otherwise normal. Recommendation: - Await pathology results. - Repeat colonoscopy in 5 years for surveillance. Electronically signed by Colin Reynolds Lamin Reynolds M.D. 12/14/2022 8:45:32 AM Number of Addenda: 0 Note Initiated On: 12/14/2022 8:07 AM Recognized by the [place] [employer] for promoting quality in endoscopy us Lamin Reynolds MD ENDOSCOPY PROCEDURES Final Res ult * ThinPrep Gynecologic Pap Test (Image-guided), Liquid-based Preparation (10/03/2017 3:52 PM SUPERVISOR PAPER MACHINE) CLINICAL INFORMATION [facility] HISTORICAL RESULTS Comment:Hysterectomy LMP: HYST [facility] HISTORICAL RESULTS PREV. PAP: [facility] Comment:Information not prov ided PREV. BX: [facility] Comment:Information not prov ided SOURCE: [facility] HISTORICAL RESULTS Comment:Vaginal cuff STATEMENT OF ADEQUACY: [facility]IST[facility] RESULTS Comment:SATISFACTORY FOR [facility] INTERPRETATION/RESU LT: [facility] HISTORICAL RESULTS Comment:Negative for intraep ithelial lesion or malignancy. COMMENT: [facility] HISTORICAL RESULTS Comment:This Pap test has be en evaluated with computer assisted technology. SURFACE SUPPLY BREATHING APPARATUS: [facility] HISTORICAL RESULTS Comment:LMT, CT(ASCP) CT scr eening location: [place] [address] [place] [address] 10/03/2017 3:52 PM SUPERVISOR PAPER MACHINE 10/12/2017 12:10 AM SUPERVISOR PAPER MACHINE Narrative [facility] HISTORICAL RESULTS - 10/11/2017 11:44 PM SUPERVISOR PAPER MACHINE 0 PERFORMING LAB: [place] [address] [facility] [phone] Abigail Baker MD Marcia Resendiz MD LAB PATHOLOGY ORDERABLES Fin al Result [facility] HISTORICAL RESULTS from Last 3 Months or Most Recently Relevant to Health Maintenance Insurance [employer] OOS [place] C[employer] IBEW [facility] OOS CIGNA IBEW BLUE ACCESS OOS Advance Directives For more information, please contact: [phone] * Full Code (Latest Code Status on File) Date Activated Date Inactivated Comments 12/14/2022 8:07 AM 12/14/2022 1:15 PM Care Teams Recreation Teacher Relationship Specialty Start Date End Date Elodia Brunson NP [address] [place] [address] PCP - General Family Practice 06/22/22
--- OUTSIDE RECORDS SUMMARY | 2024-11-18 15:08 | XMS_ITS | Encounter Summary ---
Author Organization [facility] Address [address] [place] [address] Care Team Providers Care Spare Fixer Name Role Phone Unavailable Primary Care Provider Unavailabl e Encounter Details Date Type Department Care Team (Late st Contact Info) Description 01/06/2024 Lab Requisition [facility] - DermPath Lab [address], [facility] [place] [id number] Lupe Davis DO [address] [facility] [address] [place] [address] Social History Tobacco Use Types Packs/Day Years [...] Priority Date/Time Associated Diagnosis Comments DERMATOPATHOLOGY Routine 01/06/2024 2:32 PM CDT documented in this encounter Results * DERMATOPATHOLOGY (01/06/2024 2:32 PM CDT) Case Report Dermatopathology Report Case: [id number] Authorizing Provider: Lupe Davis DO Collected: 01/06/2024 02:32 PM Ordering Location: [facility] - Received: 01/07/2024 01:01 PM DermPath Lab Pathologist: Jc Mendoza MD Specimens: A) - Skin, left popliteal foscae B) - Skin, left wrist C) - Skin, left medial lower extremity 2:50 PM CDT DERMATOPATHOLOGY LABORATORY Final Diagnosis Specimen A. SKIN, left popliteal foscae: BENIGN VERRUCOUS KERATOSIS, INFLAMED (L82.1) Specimen B. SKIN, left wrist: HYPERPLASTIC (HYPERTROPHIC) ACTINIC KERATOSIS (L57.0) Specimen C. SKIN, left medial lower extremity: BENIGN VERRUCOUS KERATOSIS (L82.1) 2:50 PM [facility] DERMATOPATHOLOGY LABORATORY Clinical History A-C: r/o NMSC 2:50 PM T DERMATOPATHOLOGY LABORATORY Gross Description Specimen A: Received is one formalin filled container labeled with the patient's name and designated left popliteal foscae. The specimen consists of a shave biopsy measuring 5x5x2 mm. Jar 0. Specimen B: Received is one formalin filled container labeled with the patient's name and designated left wrist. The specimen consists of a shave biopsy measuring 5x5x2 mm. Jar 0. Specimen C: Received is one formalin filled container labeled with the patient's name and designated left medial lower extremity. The specimen consists of a shave biopsy measuring 8x5x2 mm. Jar 0. 2:50 PM [facility] DERMATOPATHOLOGY LABORATORY Microscopic Description Specimen A. SKIN, left popliteal foscae: Sections show hyperkeratosis, papillomatosis, hypergranulosis, and acanthosis. Inflammatory cells are present within the dermis. These histological findings can be seen in a verruca vulgaris or a seborrheic keratosis. Specimen B. SKIN, left wrist: There is hyperkeratosis alternating with parakeratosis. There is epidermal hyperplasia with disorderly maturation of keratinocytes with nuclear pleomorphism confined to the lower half of the epidermis. Specimen C. SKIN, left medial lower extremity: Sections show hyperkeratosis, papillomatosis, hypergranulosis, and acanthosis. These histological findings can be seen in a verruca vulgaris or a seborrheic keratosis. 2:50 PM T DERMATOPATHOLOGY LABORATORY Disclaimer An external and internal positive and negative controls are appropriate for the histochemical, immunohistochemical and immunofluorescence stain(s) in this case (if any), except where stated explicitly. The performance characteristics of the stain(s) cited in this report were developed and its performance characteristic determined by the Dermatopathology Laboratory at [facility], directed by Dr. Verónica Mendoza. These tests need not be, and therefore are not, approved by the [place] Food and Drug Administration. The tests are used for clinical purposes. Billing Codes Specimen Charges Stain Charges 12119 52478 15645 1 1 1 4 2:50 PM CDT DERMATOPATHOLOGY LABORATORY Embedded Images 2:50 PM CDT DERMATOPATHOLOGY LABORATORY Pathology/Cytology TISSUE SPECIMEN FROM SKIN / Unknown 01/06/2024 2:32 PM CDT 01/07/2024 1:01 PM CDT Miscellaneous samples (specimen) TISSUE SPECIMEN FROM SKIN / Unknown 01/06/2024 2:32 PM CDT 01/07/2024 1:01 PM CDT Miscellaneous samples (specimen) TISSUE SPECIMEN FROM SKIN / Unknown 01/06/2024 2:32 PM CDT 01/07/2024 1:01 PM CDT us Lupe Davis DO LAB - PATHOLOGY/CYTOLOGY ORDERABLES Final Result DERMATOPATHOLOGY LABORATORY [facility] - Department of Dermatology [facility] Specialized Medicine [address] [place] [address], [address] [phone] documented in this encounter Visit Diagnoses Not on filedocumented in this encounter
--- OUTSIDE RECORDS SUMMARY | 2024-11-18 15:08 | XMS_ITS | Clinical Summary ---
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 Gender Identity Not on file Sexual Orientation Not on file Plan of Treatment Health Maintenance Due Date Last Done Comments Hepatitis C Virus (HCV) Screening 1965 Hepatitis B Immunization (1 of 3 - 19+ 3-dose series) 1985 Colonoscopy 2011 Colorectal Cancer Screening 2011 Cologuard 2016 Immunochemical Fecal Occult Blood 2016 Pneumococcal Immunization (5 0+ years) (2 of 2 - PPSV23) 09/22/2019 09/22/2018 Influenza Immunization (#1) 04/05/202405/05, 04/20/2020 SARS-COV-2 Immunization ( season) 2024 07/08/2021, 10/25/2020, 10/03/2020 Respiratory Syncytial Virus (RSV) Immunization (Adult) (1 - 1-dose 75+ series) 2041 DTaP/Tdap/Td Immunization Discontinued 03/04/2014 TdaP Immunization Completed 03/04/2014 Pneumococcal Immunization Combined Discontinued 09/22/2018 Zoster Immunization Completed 06/14/2021, 03/08/2021 Meningococcal Immunization (ACWY) Aged Out No longer eligible based on patient's age to complete this topic Rotavirus Immunization Aged Out No lo nger eligible based on patient's age to complete this topic
--- OUTSIDE RECORDS SUMMARY | 2024-11-18 15:08 | XMS_ITS | Referral Summary ---
Author Organization [facility] Address [address] [place] [address] Care Team Providers Care Bulk Sausage Casing Tier Off Name Role Phone Elodia Brunson NP Primary Care Provider [phone] Encounters Date Type Department Care Team Description 10/21/2024 Telephone [facility] Primary Care at [address] [phone] Elodia Brunson NP 10/20/2024 Telephone [facility] Primary Care at [address] [phone] Elodia Brunson NP Recommendation Request 10/16/2024 Results Follow-Up [facility] Convenient Care at [address] [phone] Ann Larsen NP 10/15/2024 9:31 PM CDT - 10/15/2024 11:59 PM [place] [address] UTI symptoms Discharge Disposition: Discharge to home or self care 10/15/2024 Telephone [facility] Con[facility]ient Care at [address] [phone] Ann Larsen NP Blood in Urine 10/15/2024 4:30 PM CDT Office Visit [facility] at [place] [address] [place] [phone] Ann Larsen NP UTI symptoms (Primary Dx); Gross hematuria 10/15/2024 Nurse Triage [facility] Primary Care at [place] [address] [facility] [address] [place] [phone] Susan Bradford RN from Last 3 Months Allergies No known active allergies Medications meloxicam [...] 06/16/2024 Assessment & Plan (06/16/2024 7:40 AM SOAKING ROOM OPERATOR): Diabetic foot exam performed with monofilament, no abnormal findings Class 3 severe obesity due t o excess calories with body mass index (BMI) of 45.0 to 49.9 in adult 06/15/2024 Assessment & Plan (06/15/2024 11:19 AM SOAKING ROOM OPERATOR): Chronic, stable Encouraged to: Make healthy food choices, limiting intake of concentrated sweets, cholesterol, and saturated fat Monitor daily caloric intake and portion sizes Exercise most days of the week for a goal of at least 150 minutes of exercise per week Encounter for screening mamm ogram for malignant neoplasm of breast 07/10/2023 Elevated ALT measurement 07/10/2023 Assessment & Plan (06/15/2024 11:19 AM SOAKING ROOM OPERATOR): Chronic, stable Encouraged continued weight loss and a low-fat, low-cholesterol diet Will monitor for stability Assessment & Plan (07/10/2023 4:15 AM SOAKING ROOM OPERATOR): Chronic, recurrent, normal at last check Reviewed lab results dated 07/05/2023 Encouraged continued weight loss, low-fat, low-cholesterol diet Ordered CMP to be done prior to next visit Vitamin D deficiency 01/09/2023 Assessment & Plan (06/15/2024 11:17 AM SOAKING ROOM OPERATOR): Chronic, stable, not controlled Recommended vitamin D3 5000 IU daily with a meal Will monitor for stability Assessment & Plan (07/10/2023 4:18 AM SOAKING ROOM OPERATOR): Chronic, improved Reviewed labs dated 07/05/2023 Recommended [...] 01/09/2023 Assessment & Plan (06/15/2024 11:18 AM SOAKING ROOM OPERATOR): Chronicity unknown, normal at most recent check Will monitor for stability Assessment & Plan (07/10/2023 4:15 AM SOAKING ROOM OPERATOR): New diagnosis, normal at most recent check [...] (10/10/2022): Added automatically from request for surgery [id number] Assessment & Plan (01/09/2023 5:21 AM CDT): Encouraged to get screening colonoscopies as recommended by screw machine operator single spindle. Encounter for vitamin deficiency screening 06/26 Assessment & Plan (06/27/2022 12:30 AM SOAKING ROOM OPERATOR): Ordered vitamin-D 25 OH. Screening for deficiency anemia 06/26/2022 Assessment & Plan (06/27/2022 12:25 AM SOAKING ROOM OPERATOR): Ordered CBC. 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 Assessment & Plan (06/27/2022 12:25 AM SOAKING ROOM OPERATOR): Chronic, stable, controlled with medication-continued on Valtrex as directed as needed, refills sent to pharmacy per request. Need for vaccination 06/26/2022 Assessment & Plan (06/27/2022 12:27 AM SOAKING ROOM OPERATOR): Influenza vaccine given. Chronic pain of both knees 10/18/2021 Assessment & Plan (06/15/2024 11:17 AM SOAKING ROOM OPERATOR): Chronic, stable Continued on meloxicam Can refer [...] 03/09/2021 Assessment & Plan (06/15/2024 11:16 AM SOAKING ROOM OPERATOR): Chronic, uncontrolled/worsened, not on medication Discussed options for treatment, is considering Encouraged weight loss efforts Assessment & Plan (07/10/2023 4:17 AM SOAKING ROOM OPERATOR): Chronic, stable Reviewed most recent hemoglobin A1c dated 12/17/2022 Encouraged continued weight loss Ordered CMP and hemoglobin A1c to be done prior to next Assessment & Plan (01/09/2023 5:27 AM CDT): Chronic, stable-encouraged weight loss efforts. Reviewed recent CMP and hemoglobin A1c at visit today. Assessment & Plan (06/27/2022 12:29 AM SOAKING ROOM OPERATOR): Chronic, improved with weight loss-ordered hemoglobin A1c and CMP to be done prior to next visit. Encouraged efforts at continued weight loss. Assessment & Plan (06/14/2021 3:42 PM SOAKING ROOM OPERATOR): ha1c is 5.8 today- cont eduardoenda Assessment & Plan (03/09/2021 8:39 AM CDT): ha1c has decreased from 6.4>5.9- this is a tremendous improvement! Cont debra. Annual physical exam 09/22/2019 Assessment & Plan (06/15/2024 11:13 AM SOAKING ROOM OPERATOR): Reviewed past and current medical history, surgical [...] needed. Assessment & Plan (06/14/2021 3:42 PM SOAKING ROOM OPERATOR): Second shingrix given today Advise mrna booster in 1-2 weeks after shingrix utd on flu shot, tdap Cont to work on diet and weight loss rtc 4 months Assessment & Plan (09/22/2019 3:17 PM SOAKING ROOM OPERATOR): Wear sunscreen while outdoors. Wear seatbelts while [...] 09/22/2019 Assessment & Plan (06/15/2024 11:14 AM SOAKING ROOM OPERATOR): Chronic, episodic, currently asymptomatic Will monitor for stability Encouraged to elevate legs when able and to wear compression socks or stockings Assessment & Plan (01/09/2023 5:33 AM CDT): Chronic, stasis-will continue to monitor for worsening symptoms or edema. Encouraged elevation of extremities when able and compression socks or stockings. Assessment & Plan (09/22/2019 3:52 PM SOAKING ROOM OPERATOR): Work on wt loss Get up and move around while at work ,periodically Wear compression stockings when travelling long distance History of basal cell carcinoma (BCC) of skin Overview (09/22/2019): r upper arm, Dr Davis Assessment & Plan (01/09/2023 5:28 AM CDT): Encouraged to follow-up with dermatology as recommended. Assessment & Plan (09/22/2019 3:53 PM SOAKING ROOM OPERATOR): Sunscreen Cont close surveillance with bean weigher Non-seasonal allergic rhinitis 09/22/2018 Overview (09/22/2019): Allergic to dust and mold Assessment & Plan (06/15/2024 11:11 AM SOAKING ROOM OPERATOR): Chronic, stable, controlled with medication Continued on Clarinex Assessment & Plan (01/09/2023 5:32 AM CDT): Chronic, stable, controlled with medication-continued on Clarinex. Assessment & Plan (09/22/2019 3:36 PM SOAKING ROOM OPERATOR): Cont clarinex daily Mixed hyperlipidemia 09/23/2017 Assessment & Plan (06/15/2024 11:12 AM SOAKING ROOM OPERATOR): Chronic, uncontrolled, with minimally elevated triglycerides and low HDL Continued on atorvastatin Recommended low-fat/low-cholesterol diet, high in fiber and plant protein Assessment & Plan (07/10/2023 4:16 AM SOAKING ROOM OPERATOR): Chronic, uncontrolled, with minimally elevated triglycerides and [...] lipids. Assessment & Plan (06/27/2022 12:26 AM SOAKING ROOM OPERATOR): Chronic, stable, with slight elevation in triglycerides at last check-continued on simvastatin. Lipid panel ordered prior to next visit. Assessment & Plan (02/23/2022 10:53 AM CDT): c Assessment & Plan (06/14/2021 3:40 PM SOAKING ROOM OPERATOR): Suspect cholesterol will be much better, check now, dec dose if possible and recheck before our next appt in 4 months at which time I Hope to stop it Assessment & Plan (05/06/2020 3:16 PM CDT): Cont low chol diet and medication Cont to monitor liver panel Assessment & Plan (09/22/2019 3:38 PM SOAKING ROOM OPERATOR): Take the chol pill daily in am. Lipids in 6mos Essential (primary) hypertension 09/19/2017 Assessment & Plan (06/15/2024 11:11 AM SOAKING ROOM OPERATOR): Chronic, stable, controlled with medication Continued on bisoprolol Assessment & Plan (01/23/2024 12:30 PM CDT): Chronic, stable, controlled with medication Continued on bisoprolol Assessment & Plan (07/10/2023 4:15 AM SOAKING ROOM OPERATOR): Chronic, stable, controlled with medication Continued on bisoprolol Ordered CMP be done prior to next visit Assessment & Plan (01/09/2023 5:19 AM CDT): Chronic, stable, controlled with medication-reviewed recent CMP. Continued on bisoprolol. Assessment & Plan (06/27/2022 12:28 AM SOAKING ROOM OPERATOR): Chronic, stable, controlled with medication-continued bisoprolol. Ordered CMP to be done prior to next visit. Assessment & Plan (02/23/2022 10:52 AM CDT): Controlled on bisoprolol Assessment & Plan (06/14/2021 3:40 PM SOAKING ROOM OPERATOR): Looking great! With weight loss, d/c hctz [...] health Assessment & Plan (09/22/2019 3:36 PM SOAKING ROOM OPERATOR): Follow low sodium DASH Diet. Exercise regularly [...] 09/19/2017 Assessment & Plan (06/15/2024 11:13 AM SOAKING ROOM OPERATOR): Chronic, stable, controlled without medication Will monitor for stability Assessment & Plan (01/09/2023 5:32 AM CDT): Chronic, stable, controlled without medication-will continue to monitor for worsening symptoms,if occurs and is interested, can refer for pelvic floor physical therapy, consider medication, and/or refer to auto repair shop manager for further evaluation and management. Personal history of colon cancer, stage II 09/19 Overview (09/22/2019): no chemo/rx, just removal of the tumors and ff up areas carly, age 38, 3 large polyps cancerous removed. Colonoscopy 05/2010, Dr Reynolds. Assessment & Plan (01/09/2023 5:26 AM CDT): Encouraged to get screening colonoscopy as recommended by screw machine operator single spindle. Assessment & Plan (06/14/2021 3:41 PM SOAKING ROOM OPERATOR): Repeat is due 11/2022 Assessment & Plan (09/22/2019 3:35 PM SOAKING ROOM OPERATOR): Patient to check with Dr Reynolds as [...] 07/10/2023 Assessment & Plan (06/11/2023 10:35 AM SOAKING ROOM OPERATOR): VSS (low grade temp 99.5F), NAD, lungs CTAB Sx duration 2.5 weeks approximately Recent COVID 05/23/2023 Possible bronchitis . Ddx secondary bacterial PNA post COVID Medrol dose pack Augmentin, azithromycin Tessalon as needed as cough suppressant ER for CP, SOB, vomiting, dizziness, persisting fevers Colon polyps 10/10/2022 01/09/2023 Overview (10/10/2022): Added automatically from request for surgery [id number] Encounter to establish care 06/26/2022 01/09/2023 Assessment & Plan (06/27/2022 12:30 AM SOAKING ROOM OPERATOR): Reviewed past and current medical history, surgical [...] 01/09/2023 Assessment & Plan (06/27/2022 12:25 AM SOAKING ROOM OPERATOR): Chronic, present in 2019 and 2020, now resolved upon most recent check, likely improved with weight loss-will continue to monitor periodically. Encouraged continued weight loss. Assessment & Plan (01/05/2021 12:36 PM CDT): On statin Has had weight gain Liver us to further investigate Croup 09/22/2019 05/05/2020 Assessment & Plan (09/22/2019 3:51 PM SOAKING ROOM OPERATOR): Doxycycline 100mg po bid x 10d Coricidin HBP or guaifenesin DM ok to take for the cough Rest and hydrate Call if high fever, sob, worsening sx Immunizations Immunization Administration Dates Next Due Influenza, Quadrivalent, Janice l Culture-based MDCK, Preservative Free, Antibiotic Free, Intramuscular 05/22/2021 Influenza, Quadrivalent, Spl it, Preservative Free, Intramuscular 07/08/2023,06/27/2022,04/20/2020 Influenza, Trivalent, Preser vative Free, Intramuscular 06/15/2024 Pfizer SARS-CoV-2 Monovalent Vaccination (12+ Yrs) PURPLE 10/25/2020,10/03/2020 Pneumococcal Conjugate PCV 13 09/22/2018 Pneumococcal Conjugate Pcv20 06/15/2024 Tdap 03/19/2022,03/04/2014 ZOSTER Recombinant 06/14/2021,03/08/2021 Social History Tobacco Use Types Packs/Day Years [...] on file Legal Sex Female 6:21 AM SOAKING ROOM OPERATOR Gender Identity Female 12/29/2020 6:34 AM CDT Sexual Orientation Straight 10/04/2020 6: 47 AM SOAKING ROOM OPERATOR Occupation Industry Job Start Date Job End Date Not on file Not on file Not on file Not on file Last Filed Vital Signs Vital Sign Reading [...] 10/15/2024 4:24 PM CDT Plan of Treatment Not on file Procedures Procedure Name Priority Date/Time Associated Diagnosis Comments URINE CULTURE Routine 10/15/2024 9:35 PM CDT UTI symptoms POCT URINALYSIS DIPSTICK Routine 10/15/2024 4:40 PM CDT UTI symptoms SCREENING MAMMOGRAM BILATERAL W [place] Schedule Routine, Read Routine (OP Routine) 07/27/2024 1:17 PM SOAKING ROOM OPERATOR Screening mammogram, encounter for COMPREHENSIVE METABOLIC PANEL [...] hyperlipidemia COLONOSCOPY 12/14/2022 8:07 AM CDT THINPREP PROCESS AREA SUPERVISOR PAP (IMAGE GUIDED) LIQUID-BASED PREP Routine 10/03/2017 3:52 PM SOAKING ROOM OPERATOR from Last 3 Months or Most Recently Relevant to Health Maintenance Results * Urine culture Urine, clean voided (10/15/2024 9:35 PM CDT) Report Final Report: Less than 100,000 colonies/mL (clinically insignificant growth based on current clinical standards) Organism (CLINICALLY INSIGNIFICANT GROWTH [facility] Urine, clean voided 10/15/2024 9:35 PM CDT 10/15/2024 9:47 PM CDT Narrative [facility] - 10/17/2024 8:33 AM CDT Testing performed by [facility] ([phone]) us Ann Larsen NP LAB MICROBIOLOGY - GENERAL [place] Final Result [facility] Department [place] [address] * (ABNORMAL) POCT urinalysis dipstick (10/15/2024 4:40 PM CDT) Color, Urine, POC Dark Yellow Clarity, ur, POC Turbid(A) Clear Glucose, ur, POC Negative Negative MG/DL Bilirubin, ur, POC Small Negative, Small, Moderate, Large Ketones, ur, POC Negative Negative Specific Alexis, POC 1.030 1.003 - 1.030 Blood, ur, POC Large(A) Negative pH, ur, POC 5.5 5.0 - 8.0 Protein, ur, POC 300.(A) Negative Urobilinogen, urine, POC 0.2 0.2 - 1.0 mg/dL Nitrite, ur, POC Negative Negative Leukocytes, ur, POC Trace(A) Negative Lot Number [id number] Urine 10/15/2024 4:40 PM CDT Ann Larsen NP POINT OF CARE TEST ORDERABLES F inal Result * Screening Mammogram Bilateral [place] (07/27/2024 1:17 PM SOAKING ROOM OPERATOR) Anatomical Region Laterality Modality Breast Bilateral Mammography Impressions 07/27/2024 1:29 PM SOAKING ROOM OPERATOR BI-RADS ATLAS category (overall): 2 - Benign There is no mammographic evidence of malignancy. A 1 year screening mammogram is recommended. The patient has been or will be contacted. We recommend annual screening mammography for women at average risk of breast cancer beginning at age 40, based on guidelines of the [place] [employer] (ACR Practice Parameter for the Performance of Screening and Diagnostic Mammography) and [place] [employer]. For women with and elevated risk of breast cancer, please refer to the ACR Practice Parameter for specific screening recommendations. The patient will be entered into a reminder system with a target due date of 1 year for her next screening exam. Narrative 07/27/2024 1:29 PM SOAKING ROOM OPERATOR Screening Mammogram Bilateral [place]: 07/27/24 The [...] A1C 7.0(H) <5.7 % of total Hgb [employer]Sia Sarmiento Comment: For someone without known diabetes, [...] LAB BLOOD ORDERABLES Final [facility]ul t [facility] [address] [place] [address] * (ABNORMAL) Lipid panel (05/23/2024 8:50 AM CDT) [facility] [address] Cholesterol 171 <200 mg/dL [facility] [...] factors. LDL-C is now calculated using the Justus-Franci calculation, which is a validated novel method providing better accuracy than the Friedewald equation in the estimation of LDL-C. Justus GANDHI et al. DANGELO. 2013;310(19): 9564-4620 (http://education.Perkle.CS Networks/faq/PJZ347) Chol/HDL ratio 3.7 <5.0 (calc) [facility] [...] BLOOD ORDERABLES Final Resul t [facility] [address] [place] [address] * (ABNORMAL) Comprehensive metabolic panel (05/23/2024 8:50 [...] LAB BLOOD ORDERABLES Final Resul t [facility] [address] [facility] [place] [address] * COLONOSCOPY (12/14/2022 8:07 AM CDT) Anatomical Region Laterality Modality Other Narrative Procedure Note Lamin Reynolds MD - 12/14/2022 8:07 AM CDT [facility] Patient Name: Madhavi Goetz Procedure Date: 12/14/2022 8:07 AM Date of : 1965 Admit Type: Outpatient Age: 57 Gender: Female Attending MD: Lamin Reynolds M.D. Room: [facility] ENDOSCOPY ROOM 02 Note Status: Finalized [...] The scope was passed under direct vision.The [id number] was introduced through the anusand advanced to [...] On: 12/14/2022 8:07 AM Recognized by the [place] [employer] for promoting quality in endoscopy us Lamin Reynolds MD ENDOSCOPY PROCEDURES Final Res ult * ThinPrep Gynecologic Pap Test (Image-guided), Liquid-based Preparation (10/03/2017 3:52 PM SOAKING ROOM OPERATOR) CLINICAL INFORMATION [facility] Comment:Hysterectomy LMP: HYST [facility] PREV. PAP: [facility] Comment:Information not prov ided PREV. BX: [facility] Comment:Information not prov ided SOURCE: [facility] Comment:Vaginal cuff STATEMENT OF ADEQUACY: [facility] Comment:SATISFACTORY FOR PEACE LUATION INTERPRETATION/RESU LT: [facility] Comment:Negative for intraep ithelial lesion or malignancy. COMMENT: [facility] Comment:This Pap test has be en evaluated with computer assisted technology. SOLDERER: [facility] HISTORICAL RESULTS Comment:LMT, CT(ASCP) CT scr eening location: [place] [address] [place] [address] 10/03/2017 3:52 PM SOAKING ROOM OPERATOR 10/12/2017 12:10 AM SOAKING ROOM OPERATOR Narrative [facility] HISTORICAL RESULTS - 10/11/2017 11:44 PM SOAKING ROOM OPERATOR 0 PERFORMING LAB: [place] [address] [facility] [id number] Abigail Baker MD us Marcia Resendiz MD LAB PATHOLOGY ORDERABLES Fin al Result [facility]IST[facility] RESULTS from Last 3 Months or Most Recently Relevant to Health Maintenance Insurance BLUE ACCESS OOS CIGNA IBEW CIGNA IBEW BLUE ACCESS OOS [facility] IBEW Member Subscriber Plan / Payer (Ef fective 2021-Present) Name:Madhavi Goetz Relation to Subscriber:Spouse Name:MADHAVI GOETZ Date of :1965 (Home) (Work) Address: [address] [place] [id number] Payer ID:[id number] (NAIC) Type:[employer] HMO/PPO Address: [address] [place] [address] [employer] O[employer] Advance Directives For more information, please contact: [phone] * Full Code (Latest Code Status on File) Date Activated Date Inactivated Comments 12/14/2022 8:07 AM 12/14/2022 1:15 PM Care Teams Bulk Sausage Casing Tier Off Relationship Specialty Start Date End Date Elodia Brunson NP [address] [place] [id number] PCP - General Family Practice 06/22/22
--- OUTSIDE RECORDS SUMMARY | 2024-11-18 15:08 | XMS_ITS | Encounter Summary ---
Author Organization [facility] Address [address] [facility] [place] [address] Care Team Providers Care Marine Farmer Name Role Phone Unavailable Primary Care Provider Unavailabl e Encounter Details Date Type Department Care Team (Late st Contact Info) Description 07/23/2019 Lab Requisition [facility] Care DermPath Lab [address] [address] Lupe Davis DO [address] [facility] [address] [place] [address] Social History Tobacco Use Types Packs/Day Years [...] Priority Date/Time Associated Diagnosis Comments DERMATOPATHOLOGY Routine 07/22/2019 12:0 0 AM MOP MAKER documented in this encounter Results * DERMATOPATHOLOGY (07/22/2019 12:00 AM MOP MAKER) Case Report Dermatopathology Report Case: [id number] Authorizing Provider: Lupe Davis DO Collected: 07/22/2019 12:00 AM Ordering Location: [facility] Care DermPath Lab Received: 07/23/2019 08:39 AM Pathologist: Kailey Hernadez MD Specimen: Skin, right upper arm 9 1:54 PM MOP MAKER DERMATOPATHOLOGY LABORATORY Final Diagnosis Specimen A. SKIN, right upper arm: DERMAL SCAR RESIDUAL BASAL CELL CARCINOMA NOT IDENTIFIED (L90.5) 9 1:54 PM MOP MAKER DERMATOPATHOLOGY LABORATORY Clinical History R/O BCC, superficial multifocal type. Bx proven [id number]. 1:54 PM [facility] DERMATOPATHOLOGY LABORATORY Gross Description Specimen A: Received is one formalin filled container labeled with the patient's name and designated right upper arm. The specimen consists of an ellipse measuring [id number] and is oriented with the notch at the 12 o'clock position not labeled on the requisition. The epidermal surface consists of a centrally located 10x7mm previous site. The 12 to 6 o'clock margin is inked green. The 6 o'clock to 12 o'clock margin is inked black. The 12 o'clock tip is submitted in cassette 1. The 6 o'clock tip is submitted in cassette 2. The remainder of the ellipse is serially sectioned and submitted in cassettes 3-4. Jar 0. 1:54 PM [facility] DERMATOPATHOLOGY LABORATORY Microscopic Description Specimen A. SKIN, right upper arm: There are fibroblasts and collagen bundles oriented parallel to the skin surface. There are elongated blood vessels, some of which are oriented perpendicular to the skin surface. No basal cell carcinoma is identified. 1:54 PM [facility] DERMATOPATHOLOGY LABORATORY Disclaimer An external and internal positive and negative controls are appropriate for the histochemical, immunohistochemical and immunofluorescence stain(s) in this case (if any), except where stated explicitly. The performance characteristics of the stain(s) cited in this report were developed and its performance characteristic determined by the Dermatopathology Laboratory at [facility], directed by Dr. Verónica Mendoza. These tests need not be, and therefore are not, approved by the [place] Food and Drug Administration. The tests are used for clinical purposes. Billing Codes Specimen Charges Stain Charges 63794 1 9 1:54 PM [facility] DERMATOPATHOLOGY LABORATORY Embedded Images 1:54 PM [facility] DERMATOPATHOLOGY LABORATORY Pathology/Cytolog y TISSUE SPECIMEN FROM SKIN / Unknown 07/22/2019 07/23/2019 8:39 AM MOP MAKER us Lupe Davis DO LAB - PATHOLOGY/CYTOLOGY ORDERABLES Final Result DERMATOPATHOLOGY LABORATORY [facility] - Department of Dermatology [address] [facility] [address]th [place] [address], [facility] [phone] documented in this encounter Visit Diagnoses Not on filedocumented in this encounter
--- OUTSIDE RECORDS SUMMARY | 2024-11-18 15:08 | XMS_ITS | Encounter Summary ---
Author Organization [facility] Facility Care Team Providers Care Automobile Mechanic Assistant Name Role Phone Matilde Vizcaino MD Primary Care Provider + [phone] Meme Velazquez MD Primary Care Provider [phone] Christine Daugherty NP Primary Care Provider + [phone] Elodia Brunson DIRECTOR OF CASEWORK DEPARTMENT Primary Care Provider [phone] Unknown, Notinfile Primary Care Provider Unavail able Elodia Brunson DIRECTOR OF CASEWORK DEPARTMENT Primary Care Provider [phone] Encounter Details Date Type Department Care Team (Latest Contact Info) Description 09/13/2016 Orders Only [facility] CLINCONV Provider, MD Shabbir [address] [place] [address] Social History Tobacco Use Types Packs/Day Years Used Date Smoking Tobacco: Never Assessed Comments Unknown Sex and Gender Information Value Date Recorded Sex Assigned at Not on file Legal Sex Female 6:21 AM ASPHALT DAUBER Gender Identity Female 12/29/2020 6:34 AM CDT Sexual Orientation Straight 10/04/2020 6: 47 AM ASPHALT DAUBER documented as of this encounter Plan of Treatment Not on file documented as of this encounter Procedures Procedure Name Priority Date/Time Associated Diagnosis Comments COLONOSCOPY - SCAN 09/13/2016 12 :00 AM ASPHALT DAUBER documented in this encounter Results * COLONOSCOPY - SCAN (09/13/2016 12:00 AM ASPHALT DAUBER) Narrative 09/13/2016 12:00 AM ASPHALT DAUBER Ordered by an unspecified provider. us Historical Provider Final Res ult documented in this encounter Visit Diagnoses Not on filedocumented in this encounter Care Teams Automobile Mechanic Assistant Relationship Specialty Start Date End Date Matilde Vizcaino MD [address] [place] [address] [id number] PCP - General 11/13/17 01/05/21 Meme Velazquez MD [address] [place] [address] [id number] PCP - General Internal Medicine 01/06/21 04/18/22 Christine Daugherty NP [address] [place] [address] [phone] PCP - General Internal Medicine 04/19/22 04/26/22 Elodia Brunson NP [address] [place] [address]61 PCP - General Family Practice 04/30/22 05/06/22 Unknown, Notinfile PCP - General 06/14/22 06/21/22 Elodia Brunson DIRECTOR OF CASEWORK DEPARTMENT [address] [place] [address] [id number] PCP - General Family Practice 06/22/22 documented as of this encounter
--- OUTSIDE RECORDS SUMMARY | 2024-11-18 15:08 | XMS_ITS | Clinical Summary ---
Author Organization [facility] Address [address] [place] [address] Care Team Providers Care Junior Loan Processor Name Role Phone Unavailable Primary Care Provider Unavailabl e Source Comments [facility],non-owned Affiliates and Associated Physician Practices is amultiple site organization consisting of ambulatory clinics and hospital sitesin [place], [place], [place] and [place]. This disclosure is being madepursuant to the Care Everywhere program and may not contain all information available regarding this patient. Last updated 18.[facility] [employer] Social History Tobacco Use Types Packs/Day Years Used Date Smoking Tobacco: Never Assessed Comments Unknown Sex and Gender Information Value Date Recorded Sex Assigned at Not on file Legal Sex Female 4:24 PM CDT Gender Identity Not on file Sexual Orientation Not on file Plan of Treatment Health Maintenance Due Date Last Done Comments COLOGUARD (AGES 45-75) - COL ON CA SCREENING 1966 COLON MONITORING 1966 COLONOSCOPY - COLON CA SCREENING 1966 CT COLONOGRAPHY - COLON CA SCREENING 1966 Colorectal Cancer Screening 1966 FIT - COLON CA SCREENING 1966 FLEX SIG - COLON CA SCREENING 1966 LIPID TESTING 1966 MAMMOGRAM 1966 PAP SMEAR 1966 HIV SCREENING 1981 HEPATITIS C SCREENING 08/19/1984 DTAP/TDAP/TD VACCINES (1 - Tdap) 1985 HEPATITIS B VACCINE (1 of 3 - 19+ 3-dose series) 1985 PNEUMOCOCCAL VACCINE 50+ (1 of 1 - PCV) 2016 ZOSTER VACCINE (1 of 2) 2016 COVID-19 VACCINE (2023-2 5 season) 2024 DEPRESSION SCREENING 08/05/2024 INFLUENZA VACCINE (Season Ended) 2025 HIB VACCINE Aged Out No longer eligi ble based on patient's age to complete this topic HPV VACCINE Aged Out No longer eligi ble based on patient's age to complete this topic MENINGOCOCCAL (Group B) VACC INE SHARED DECISION-MAKING Aged Out No longer eligibl e based on patient's age to complete this topic MENINGOCOCCAL GROUPS A/C/Y/W VACCINE Aged Out No longer eligible b ased on patient's age to complete this topic Insurance ANTHEM Member Subscriber Plan / Payer (Ef fective 2013-Present) Name:Michelle Goetz Relation to Subscriber:Self Name:Michelle Goetz Payer ID:[id number] (NAIC) Type:O Address: [address] ANTHEM Member Subscriber Plan / Payer (Ef fective 2013-Present) Name:Michelle Goetz Relation to Subscriber:Self Name:Michelle Goetz Payer ID:[id number] (NAIC) Type:PPO Address: [facility] [id number] [place] [id number]
--- OUTSIDE RECORDS SUMMARY | 2024-11-18 15:08 | XMS_ITS | Encounter Summary ---
Author Organization [facility] Address [address] [facility] [place] [address] Care Team Providers Care Slot Machine Repairer Name Role Phone Unavailable Primary Care Provider Unavailabl e Encounter Details Date Type Department Care Team (Late st Contact Info) Description 08/15/2020 Lab Requisition [facility] DermPath Lab [address] [facility], [facility] [place] [address] Lupe Davis DO [address] [facility] 3 [place] [address] Social History Tobacco Use Types Packs/Day Years [...] Priority Date/Time Associated Diagnosis Comments DERMATOPATHOLOGY Routine 08/11/2020 12:0 0 AM MAINSPRING REVERSE WINDER documented in this encounter Results * DERMATOPATHOLOGY (08/11/2020 12:00 AM MAINSPRING REVERSE WINDER) Case Report Dermatopathology Report Case: [id number] Authorizing Provider: Lupe Davis DO Collected: 08/11/2020 12:00 AM Ordering Location: [facility] Care DermPath Lab Received: 08/15/2020 10:19 AM Pathologist: Jc Mendoza MD Specimen: Skin, right posterior ankle 1:33 PM MAINSPRING REVERSE WINDER DERMATOPATHOLOGY LABORATORY Final Diagnosis Specimen A. SKIN, right posterior ankle: BASAL CELL CARCINOMA, SUPERFICIAL MULTIFOCAL (C44.712) 1:33 PM MAINSPRING REVERSE WINDER DERMATOPATHOLOGY LABORATORY Clinical History R/O NMSC vs LPLK, non-healing. 1 1:33 PM MAINSPRING REVERSE WINDER DERMATOPATHOLOGY LABORATORY Gross Description Specimen A: Received is one formalin filled container labeled with the patient's name and designated right posterior ankle. The specimen consists of a shave measuring [id number]. Jar 0. 1 1:33 PM MAINSPRING REVERSE WINDER DERMATOPATHOLOGY LABORATORY Microscopic Description Specimen A. SKIN, right posterior ankle: Attached to the undersurface of the epidermis, there are small aggregates of basaloid cells with a high nuclear to cytoplasmic ratio and peripheral palisading. 1 1:33 PM MAINSPRING REVERSE WINDER DERMATOPATHOLOGY LABORATORY Disclaimer An external and internal positive and negative controls are appropriate for the histochemical, immunohistochemical and immunofluorescence stain(s) in this case (if any), except where stated explicitly. The performance characteristics of the stain(s) cited in this report were developed and its performance characteristic determined by the Dermatopathology Laboratory at [facility], directed by Dr. Verónica Mendoza. These tests need not be, and therefore are not, approved by the [place] Food and Drug Administration. The tests are used for clinical purposes. Billing Codes Specimen Charges Stain Charges 73296 1 1 1:33 PM MAINSPRING REVERSE WINDER DERMATOPATHOLOGY LABORATORY Embedded Images 1 1:33 PM MAINSPRING REVERSE WINDER DERMATOPATHOLOGY LABORATORY Pathology/Cytolog y TISSUE SPECIMEN FROM SKIN / Unknown 08/11/2020 08/15/2020 10:19 AM MAINSPRING REVERSE WINDER Lupe Davis DO LAB - PATHOLOGY/CYTOLOGY ORDERABLES Final Result DERMATOPATHOLOGY LABORATORY [facility] - Department of Dermatology [address] [place] [address], [facility] [phone] documented in this encounter Visit Diagnoses Not on filedocumented in this encounter
== END 2024-11-18 13:44 | disposition home or self-care (01) ==
PROVIDERS: PCP Family Medicine; Visit Provider Physician Assistant Medical
DX: R31.0 Gross hematuria (principal); K76.0 Fatty (change of) liver, not elsewhere classified; N20.0 Calculus of kidney
CPT/HCPCS: 74178; Q9967

== ENCOUNTER 2024-12-17 11:05 | Outpatient (CLI) | payer BC, OTHER, SELFPAY ==
--- OUTSIDE RECORDS SUMMARY | 2024-12-17 11:12 | XMS_ITS | Encounter Summary ---
Author Organization [facility] Address [address] [facility] [place] [address] Care Team Providers Care Central Service Technician Name Role Phone Unavailable Primary Care Provider Unavailabl e Encounter Details Date Type Department Care Team (Late st Contact Info) Description 07/23/2019 Lab Requisition [facility] DermPath Lab [address] [facility], [facility] [place] [address] Lupe Davis DO [address] [facility] 3 [place] [address] Social History Tobacco Use Types Packs/Day Years [...] Comments DERMATOPATHOLOGY Routine 07/22/2019 12:0 0 AM BB SHOT PACKER documented in this encounter Results * DERMATOPATHOLOGY (07/22/2019 12:00 AM BB SHOT PACKER) Case Report Dermatopathology Report Case: [id number] Authorizing Provider: Lupe Davis DO Collected: 07/22/2019 12:00 AM Ordering Location: [facility] Care DermPath Lab Received: 07/23/2019 08:39 AM Pathologist: Kailey Hernadez MD Specimen: Skin, right upper arm 9 1:54 PM BB SHOT PACKER DERMATOPATHOLOGY LABORATORY Final Diagnosis Specimen A. SKIN, right upper arm: DERMAL SCAR RESIDUAL BASAL CELL CARCINOMA NOT IDENTIFIED (L90.5) 9 1:54 PM BB SHOT PACKER DERMATOPATHOLOGY LABORATORY Clinical History R/O BCC, superficial multifocal type. Bx proven [id number]. 1:54 PM [facility] DERMATOPATHOLOGY LABORATORY Gross Description Specimen A: Received is one formalin filled container labeled with the patient's name and designated right upper arm. The specimen consists of an ellipse measuring [id number] and is oriented with the notch at [...] in cassettes 3-4. Jar 0. 1:54 PM [facility] DERMATOPATHOLOGY LABORATORY Microscopic Description Specimen A. SKIN, right upper arm: There are fibroblasts and collagen bundles oriented parallel to the skin surface. There are elongated blood vessels, some of which are oriented perpendicular to the skin surface. No basal cell carcinoma is identified. 1:54 PM [facility] DERMATOPATHOLOGY LABORATORY Disclaimer An external and internal positive and negative controls are appropriate for the histochemical, immunohistochemical and immunofluorescence stain(s) in this case (if any), except where stated explicitly. The performance characteristics of the stain(s) cited in this report were developed and its performance characteristic determined by the Dermatopathology Laboratory at [facility], directed by Dr. Verónica Mendoza. These tests need not be, and therefore are not, approved by the [place] Food and Drug Administration. The tests are used for clinical purposes. Billing Codes Specimen Charges Stain Charges 63060 1 9 1:54 PM [facility] DERMATOPATHOLOGY LABORATORY Embedded Images 1:54 PM [facility] DERMATOPATHOLOGY LABORATORY Pathology/Cytolog y TISSUE SPECIMEN FROM SKIN / Unknown 07/22/2019 07/23/2019 8:39 AM BB SHOT PACKER us Lupe Davis DO LAB - PATHOLOGY/CYTOLOGY ORDERABLES Final Result DERMATOPATHOLOGY LABORATORY [facility] - Department of Dermatology [address] [facility] 5th [place] [address], [facility] [phone] documented in this encounter Visit Diagnoses Not on filedocumented in this encounter
--- OUTSIDE RECORDS SUMMARY | 2024-12-17 11:12 | XMS_ITS | Encounter Summary ---
Author Organization [facility] Address [address] [facility] [place] [address] Care Team Providers Care Hot Die Press Operator Name Role Phone Unavailable Primary Care Provider Unavailabl e Encounter Details Date Type Department Care Team (Late st Contact Info) Description 08/15/2020 Lab Requisition [facility] DermPath Lab [address] [facility], [facility] [place] [address] Lupe Davis DO [address] [facility] [address] [place] [address] Social History Tobacco Use Types Packs/Day Years [...] Comments DERMATOPATHOLOGY Routine 08/11/2020 12:0 0 AM RAILCAR SWITCHER documented in this encounter Results * DERMATOPATHOLOGY (08/11/2020 12:00 AM RAILCAR SWITCHER) Case Report Dermatopathology Report Case: [id number] Authorizing Provider: Lupe Davis DO Collected: 08/11/2020 12:00 AM Ordering Location: [facility] Care DermPath Lab Received: 08/15/2020 10:19 AM Pathologist: Jc Mendoza MD Specimen: Skin, right posterior ankle 1:33 PM RAILCAR SWITCHER DERMATOPATHOLOGY LABORATORY Final Diagnosis Specimen A. SKIN, right posterior ankle: BASAL CELL CARCINOMA, SUPERFICIAL MULTIFOCAL (C44.712) 1:33 PM RAILCAR SWITCHER DERMATOPATHOLOGY LABORATORY Clinical History R/O NMSC vs LPLK, non-healing. 1 1:33 PM RAILCAR SWITCHER DERMATOPATHOLOGY LABORATORY Gross Description Specimen A: Received is one formalin filled container labeled with the patient's name and designated right posterior ankle. The specimen consists of a shave measuring [id number]. Jar 0. 1 1:33 PM RAILCAR SWITCHER DERMATOPATHOLOGY LABORATORY Microscopic Description Specimen A. SKIN, right posterior ankle: Attached to the undersurface of the epidermis, there are small aggregates of basaloid cells with a high nuclear to cytoplasmic ratio and peripheral palisading. 1 1:33 PM RAILCAR SWITCHER DERMATOPATHOLOGY LABORATORY Disclaimer An external and internal positive and negative controls are appropriate for the histochemical, immunohistochemical and immunofluorescence stain(s) in this case (if any), except where stated explicitly. The performance characteristics of the stain(s) cited in this report were developed and its performance characteristic determined by the Dermatopathology Laboratory at [facility], directed by Dr. Verónica Mendoza. These tests need not be, and therefore are not, approved by the [place] Food and Drug Administration. The tests are used for clinical purposes. Billing Codes Specimen Charges Stain Charges 74012 1 1 1:33 PM RAILCAR SWITCHER DERMATOPATHOLOGY LABORATORY Embedded Images 1 1:33 PM RAILCAR SWITCHER DERMATOPATHOLOGY LABORATORY Pathology/Cytolog y TISSUE SPECIMEN FROM SKIN / Unknown 08/11/2020 08/15/2020 10:19 AM RAILCAR SWITCHER Lupe Davis DO LAB - PATHOLOGY/CYTOLOGY ORDERABLES Final Result DERMATOPATHOLOGY LABORATORY [facility] - Department of Dermatology [address] [place] [address], [facility] [phone] documented in this encounter Visit Diagnoses Not on filedocumented in this encounter
--- OUTSIDE RECORDS SUMMARY | 2024-12-17 11:12 | XMS_ITS | Encounter Summary ---
Author Organization [facility] Facility Care Team Providers Care Quality Assurance Monitor Chassis Name Role Phone Matilde Vizcaino MD Primary Care Provider [phone] Meme Velazquez MD Primary Care Provider [phone] Christine Daugherty NP Primary Care Provider + [phone] Elodia Brunson MERCHANDISE SUPERVISOR Primary Care Provider [phone] Unknown, Notinfile Primary Care Provider Unavail able Elodai Brunson MERCHANDISE SUPERVISOR Primary Care Provider [phone] Encounter Details Date Type Department Care Team (Latest Contact Info) Description 09/13/2016 Orders Only MMG CLINCONV Provider, MD Shabbir [address] [place] [address] Social History Tobacco Use Types Packs/Day Years Used Date Smoking Tobacco: Never Assessed Comments Unknown Sex and Gender Information Value Date Recorded Sex Assigned at Not on file Legal Sex Female 6:21 AM AR MANAGER Gender Identity Female 12/29/2020 6:34 AM CDT Sexual Orientation Straight 10/04/2020 6: 47 AM AR MANAGER documented as of this encounter Plan of Treatment Not on file documented as of this encounter Procedures Procedure Name Priority Date/Time Associated Diagnosis Comments COLONOSCOPY - SCAN 09/13/2016 12 :00 AM AR MANAGER documented in this encounter Results * COLONOSCOPY - SCAN (09/13/2016 12:00 AM AR MANAGER) Narrative 09/13/2016 12:00 AM AR MANAGER Ordered by an unspecified provider. us Historical Provider Final Res ult documented in this encounter Visit Diagnoses Not on filedocumented in this encounter Care Teams Quality Assurance Monitor Chassis Relationship Specialty Start Date End Date Matilde Vizcaino MD [address] [place] [address] [phone] PCP - General 11/13/17 01/05/21 Meme Velazquez MD [address] [place] [address] [id number] PCP - General Internal Medicine 01/06/21 04/18/22 Christine Daugherty NP [address] [place] [address] [phone] PCP - General Internal Medicine 04/19/22 04/26/22 Elodia Brunson NP [address] [place] [address] PCP - General Family Practice 04/30/22 05/06/22 Unknown, Notinfile PCP - General 06/14/22 06/21/22 Elodia Brunson MERCHANDISE SUPERVISOR [address] [place] [address] PCP - General Family Practice 06/22/22 documented as of this encounter
--- OUTSIDE RECORDS SUMMARY | 2024-12-17 11:12 | XMS_ITS | Clinical Summary ---
Author Organization [facility] Address [facility] [place] [address] Care Team Providers Care Type Bar And Segment Assembler Name Role Phone Elodia Brunson Delgado HEATHER Primary Care Provider Encounters Date Type Department Care Team Description 11/27/2024 3:00 PM CDT - 11/27/2024 11:59 PM CDT Hospital Encounter [facility] [address] [place] [address] Mel Albert PA-C Discharge Disposition: Home or Self Care (Routine Discharge) 11/27/2024 Travel from Last 3 Months Social History Tobacco Use Types Packs/Day Years Used Date Smoking Tobacco: Never Assessed Comments Unknown Sex and Gender Information Value Date Recorded Sex Assigned at Female 11/27/2024 3:03 PM CDT Legal Sex Female 2:08 PM CDT Gender Identity Not on file Sexual Orientation Not on file Plan of Treatment Health Maintenance Due Date Last Done Comments Cervical Cancer Screening Pap Smear (Age 30 to 64) Every 3 Years 1966 Colorectal Cancer Screening Colonoscopy (10 Years) 1966 Annual Physical 1969 Hepatitis C 1984 Hepatitis B Vaccines (1 of 3 - 19+ 3-dose series) 1985 Cervical Cancer Screening Pap with HPV Testing (Age 30 to 64) Every 5 Years 1996 Cervical Cancer Screening with HPV 1996 COVID-19 Vaccine ( season) 2024 02/26/2022, 07/08/2021, 10/25/2020, Additional history exists Mammogram Screening 07/27/2026 07/27/2024, 07/25/2023, 07/12/2022, Additional history exists DTaP, Tdap and Td Vaccines (3 - Td or Tdap) 03/19/2032 03/19/2022, 03/04/2014 Zoster Vaccines Completed 06/14/2021, 03/08/2021 Pneumococcal Vaccine: 50+ Years Completed 06/15/2024, 09/22/2018 Meningococcal B Vaccine Aged Out No l onger eligible based on patient's age to complete this topic Meningococcal Vaccine Aged Out No janett lauro eligible based on patient's age to complete this topic RSV Immunizations Under 20 Months Aged Out No longer eligible based on patient's age to complete this topic Procedures Procedure Name Priority Date/Time Associated Diagnosis Comments XR ABD KUB Routine 11/27/2024 3:29 PM CDT Bilateral kidney stones from Last 3 Months Results * XR ABD KUB (11/27/2024 3:29 PM CDT) Anatomical Region Laterality Modality Abdomen Radiographic Aimee ging 11/27/2024 4:26 PM CDT Impressions 11/27/2024 4:32 PM CDT =====IMPRESSION:===== Indistinct dense foci overlying the left abdomen, not well characterized on this exam. These could be kidney stones or artifact from overlying objects, medication tablets or other bowel contents. If needed, CT could be more definitive. Ordered By: MEL ALBERT Interpreted By: Clarence Brady MD, 11/27/2024 4:26 PM Narrative 11/27/2024 4:32 PM CDT [address] [address] Exam time: 11/27/2024 3:18 PM Examination: Abdomen supine views Reason For Exam: Bilateral kidney stones. Comparison: None Findings: No abnormally dilated bowel loops. Bowel gas pattern is unremarkable. Indistinct dense foci overlying the left midabdomen are nonspecific. Possible renal calculi versus artifact from overlying objects. Cholecystectomy clips are noted. Additional surgical clip overlies the right lower quadrant. Few pelvic phleboliths. Diffuse degenerative changes. Visualized lung bases are clear. Procedure Note Clarence Brady MD - 11/27/[address] [address] Exam time: 11/27/2024 3:18 PM Examination: Abdomen supine views Reason For Exam: Bilateral kidney stones. Comparison: None Findings: No abnormally dilated bowel loops. Bowel gas pattern isunremarkable. Indistinct dense foci overlying the left midabdomen arenonspecific. Possible renal calculi versus artifact from overlyingobjects. Cholecystectomy clips are noted. Additional surgical clipoverlies the right lower quadrant. Few pelvic phleboliths. Diffusedegenerative changes. Visualized lung bases are clear. =====IMPRESSION:===== Indistinct dense foci overlying the left abdomen, not well characterizedon this exam. These could be kidney stones or artifact from overlyingobjects, medication tablets or other bowel contents. If needed, CT couldbe more definitive. Ordered By: MEL ALBERT Interpreted By: Clarence Brady MD, 11/27/2024 4:26 PM us Mel Albert PA-C GENERAL IMAGING Final Resul t from Last 3 Months [facility] [employer] Care Teams Type Bar And Segment Assembler Relationship Specialty Start Date End Date Elodia Brunson APRN [address] [place] [id number] PCP - General NURSE PRACTITIONER 11/27/24
--- OUTSIDE RECORDS SUMMARY | 2024-12-17 11:12 | XMS_ITS | Clinical Summary ---
Author Organization [facility] Address [address] [place] [address] Care Team Providers Care Progressive Assembler And Fitter Name Role Phone Unavailable Primary Care Provider Unavailabl e Source Comments [facility],non-owned Affiliates and Associated Physician Practices is amultiple site organization consisting of ambulatory clinics and hospital sitesin [place], [place], [place] and [place]. This disclosure is being madepursuant to the Care Everywhere program and may not contain all information available regarding this patient. Last updated 18.[facility] [employer] Social History Tobacco Use Types Packs/Day Years [...] Goetz Payer ID:[id number] (NAIC) Type:O Address: [address] [place] Member Subscriber Plan / Payer (Ef fective 2013-Present) Name:Michelle Goetz Relation to Subscriber:Self Name:Michelle Goetz Payer ID:[id number] (NAIC) Type:PPO Address: [facility] [id number] [place] [id number]
--- OUTSIDE RECORDS SUMMARY | 2024-12-17 11:12 | XMS_ITS | Encounter Summary ---
Author Organization [facility] Address [address] [facility] [place] [address] Care Team Providers Care Embossograph Operator Name Role Phone Unavailable Primary Care Provider Unavailabl e Encounter Details Date Type Department Care Team (Late st Contact Info) Description 01/06/2024 Lab Requisition [facility] - DermPath Lab [address] [facility] [facility] [place] [id number] Lupe Davis DO [address] [facility] [address] [place] [address] Social History Tobacco Use Types Packs/Day Years [...] PM CDT) Case Report Dermatopathology Report Case: [id number] Authorizing Provider: Lupe Davis DO Collected: 01/06/2024 02:32 PM Ordering Location: [facility] - Received: 01/07/2024 01:01 [...] extremity: BENIGN VERRUCOUS KERATOSIS (L82.1) 2:[address] [facility] Clinical History A-C: r/o NMSC [...] measuring 8x5x2 mm. Jar 0. 2:[address] [facility] Microscopic Description Specimen A. SKIN, [...] characteristic determined by the Dermatopathology Laboratory at [facility], directed by Dr. Verónica Mendoza. These tests need not be, and therefore are not, approved by the [place] Food and Drug Administration. The tests are used for clinical purposes. Billing Codes Specimen Charges Stain Charges 72795 [id number] 1 1 1 4 2:50 PM CDT [...] - PATHOLOGY/CYTOLOGY ORDERABLES Final Result DERMATOPATHOLOGY LABORATORY [facility] - Department of Dermatology [facility] Specialized Medicine [address] [place] [address], [address] [phone] documented in this encounter Visit Diagnoses Not on filedocumented in this encounter
--- OUTSIDE RECORDS SUMMARY | 2024-12-17 11:12 | XMS_ITS | Clinical Summary ---
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
--- OUTSIDE RECORDS SUMMARY | 2024-12-17 11:12 | XMS_ITS | Clinical Summary ---
Author Organization [facility] Center Address [address] [place] [address] Care Team Providers Care Glue Maker Name Role Phone Elodia Brunson NP Primary Care Provider [phone] Allergies No known active allergies Medications meloxicam (MOBIC) 15 mg tablet Take 1 tablet (15 mg total) by mouth daily 07/05/2023 Active desloratadine (CLARINEX) 5 mg tabletIndication s:Non-seasonal allergic rhinitis, unspecified trigger Take 1 tablet by mouth daily as needed for congestion. 90 tablet 3 06/15/2024 Active valACYclovir (VALTREX) 1 gram tabletIndication s:Recurrent cold sores TAKE 2 TABLETS (2,000 MG TOTAL) BY MOUTH TWICE A DAY 12 tablet 07/06/2024 Active atorvastatin (LIPITOR) 20 mg tablet TAKE 1 TABLET BY MOUTH EVERY DAY 100 tablet 11/15/2024 Active bisoprolol (ZEBETA) 5 mg tablet TAKE 1 TABLET (5 MG TOTAL) BY MOUTH DAILY. 100 tablet 11/15/2024 Active Active Problems Problem Noted Date Diagnosed Date Encounter for diabetic foot exam 06/16/2024 Assessment & Plan (06/16/2024 7:40 AM TEACHING SUPERVISOR): Diabetic foot exam performed with monofilament, no abnormal findings Class 3 severe obesity due t o excess calories with body mass index (BMI) of 45.0 to 49.9 in adult 06/15/2024 Assessment & Plan (06/15/2024 11:19 AM TEACHING SUPERVISOR): Chronic, stable Encouraged to: Make healthy food choices, limiting intake of concentrated sweets, cholesterol, and saturated fat Monitor daily caloric intake and portion sizes Exercise most days of the week for a goal of at least 150 minutes of exercise per week Encounter for screening mamm ogram for malignant neoplasm of breast 07/10/2023 Elevated ALT measurement 07/10/2023 Assessment & Plan (06/15/2024 11:19 AM TEACHING SUPERVISOR): Chronic, stable Encouraged continued weight loss and a low-fat, low-cholesterol diet Will monitor for stability Assessment & Plan (07/10/2023 4:15 AM TEACHING SUPERVISOR): Chronic, recurrent, normal at last check Reviewed lab results dated 07/05/2023 Encouraged continued weight loss, low-fat, low-cholesterol diet Ordered CMP to be done prior to next visit Vitamin D deficiency 01/09/2023 Assessment & Plan (06/15/2024 11:17 AM TEACHING SUPERVISOR): Chronic, stable, not controlled Recommended vitamin D3 5000 IU daily with a meal Will monitor for stability Assessment & Plan (07/10/2023 4:18 AM TEACHING SUPERVISOR): Chronic, improved Reviewed labs dated 07/05/2023 Recommended [...] 01/09/2023 Assessment & Plan (06/15/2024 11:18 AM TEACHING SUPERVISOR): Chronicity unknown, normal at most recent check Will monitor for stability Assessment & Plan (07/10/2023 4:15 AM TEACHING SUPERVISOR): New diagnosis, normal at most recent check [...] (10/10/2022): Added automatically from request for surgery [id number] Assessment & Plan (01/09/2023 5:21 AM CDT): Encouraged to get screening colonoscopies as recommended by teachers aide. Encounter for vitamin deficiency screening 06/26 Assessment & Plan (06/27/2022 12:30 AM TEACHING SUPERVISOR): Ordered vitamin-D 25 OH. Screening for deficiency anemia 06/26/2022 Assessment & Plan (06/27/2022 12:25 AM TEACHING SUPERVISOR): Ordered CBC. 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 Assessment & Plan (06/27/2022 12:25 AM TEACHING SUPERVISOR): Chronic, stable, controlled with medication-continued on Valtrex as directed as needed, refills sent to pharmacy per request. Need for vaccination 06/26/2022 Assessment & Plan (06/27/2022 12:27 AM TEACHING SUPERVISOR): Influenza vaccine given. Chronic pain of both knees 10/18/2021 Assessment & Plan (06/15/2024 11:17 AM TEACHING SUPERVISOR): Chronic, stable Continued on meloxicam Can refer [...] 03/09/2021 Assessment & Plan (06/15/2024 11:16 AM TEACHING SUPERVISOR): Chronic, uncontrolled/worsened, not on medication Discussed options for treatment, is considering Encouraged weight loss efforts Assessment & Plan (07/10/2023 4:17 AM TEACHING SUPERVISOR): Chronic, stable Reviewed most recent hemoglobin A1c dated 12/17/2022 Encouraged continued weight loss Ordered CMP and hemoglobin A1c to be done prior to next Assessment & Plan (01/09/2023 5:27 AM CDT): Chronic, stable-encouraged weight loss efforts. Reviewed recent CMP and hemoglobin A1c at visit today. Assessment & Plan (06/27/2022 12:29 AM TEACHING SUPERVISOR): Chronic, improved with weight loss-ordered hemoglobin A1c and CMP to be done prior to next visit. Encouraged efforts at continued weight loss. Assessment & Plan (06/14/2021 3:42 PM TEACHING SUPERVISOR): ha1c is 5.8 today- cont saxsymone Assessment & Plan (03/09/2021 8:39 AM CDT): ha1c has decreased from 6.4>5.9- this is a tremendous improvement! Cont debra. Annual physical exam 09/22/2019 Assessment & Plan (06/15/2024 11:13 AM TEACHING SUPERVISOR): Reviewed past and current medical history, surgical [...] needed. Assessment & Plan (06/14/2021 3:42 PM TEACHING SUPERVISOR): Second shingrix given today Advise mrna booster in 1-2 weeks after shingrix utd on flu shot, tdap Cont to work on diet and weight loss rtc 4 months Assessment & Plan (09/22/2019 3:17 PM TEACHING SUPERVISOR): Wear sunscreen while outdoors. Wear seatbelts while [...] 09/22/2019 Assessment & Plan (06/15/2024 11:14 AM TEACHING SUPERVISOR): Chronic, episodic, currently asymptomatic Will monitor for stability Encouraged to elevate legs when able and to wear compression socks or stockings Assessment & Plan (01/09/2023 5:33 AM CDT): Chronic, stasis-will continue to monitor for worsening symptoms or edema. Encouraged elevation of extremities when able and compression socks or stockings. Assessment & Plan (09/22/2019 3:52 PM TEACHING SUPERVISOR): Work on wt loss Get up and move around while at work ,periodically Wear compression stockings when travelling long distance History of basal cell carcinoma (BCC) of skin Overview (09/22/2019): r upper arm, Dr Davis Assessment & Plan (01/09/2023 5:28 AM CDT): Encouraged to follow-up with dermatology as recommended. Assessment & Plan (09/22/2019 3:53 PM TEACHING SUPERVISOR): Sunscreen Cont close surveillance with help desk engineer Non-seasonal allergic rhinitis 09/22/2018 Overview (09/22/2019): Allergic to dust and mold Assessment & Plan (06/15/2024 11:11 AM TEACHING SUPERVISOR): Chronic, stable, controlled with medication Continued on Clarinex Assessment & Plan (01/09/2023 5:32 AM CDT): Chronic, stable, controlled with medication-continued on Clarinex. Assessment & Plan (09/22/2019 3:36 PM TEACHING SUPERVISOR): Cont clarinex daily Mixed hyperlipidemia 09/23/2017 Assessment & Plan (06/15/2024 11:12 AM TEACHING SUPERVISOR): Chronic, uncontrolled, with minimally elevated triglycerides and low HDL Continued on atorvastatin Recommended low-fat/low-cholesterol diet, high in fiber and plant protein Assessment & Plan (07/10/2023 4:16 AM TEACHING SUPERVISOR): Chronic, uncontrolled, with minimally elevated triglycerides and [...] lipids. Assessment & Plan (06/27/2022 12:26 AM TEACHING SUPERVISOR): Chronic, stable, with slight elevation in triglycerides at last check-continued on simvastatin. Lipid panel ordered prior to next visit. Assessment & Plan (02/23/2022 10:53 AM CDT): c Assessment & Plan (06/14/2021 3:40 PM TEACHING SUPERVISOR): Suspect cholesterol will be much better, check now, dec dose if possible and recheck before our next appt in 4 months at which time I Hope to stop it Assessment & Plan (05/06/2020 3:16 PM CDT): Cont low chol diet and medication Cont to monitor liver panel Assessment & Plan (09/22/2019 3:38 PM TEACHING SUPERVISOR): Take the chol pill daily in am. Lipids in 6mos Essential (primary) hypertension 09/19/2017 Assessment & Plan (06/15/2024 11:11 AM TEACHING SUPERVISOR): Chronic, stable, controlled with medication Continued on bisoprolol Assessment & Plan (01/23/2024 12:30 PM CDT): Chronic, stable, controlled with medication Continued on bisoprolol Assessment & Plan (07/10/2023 4:15 AM TEACHING SUPERVISOR): Chronic, stable, controlled with medication Continued on bisoprolol Ordered CMP be done prior to next visit Assessment & Plan (01/09/2023 5:19 AM CDT): Chronic, stable, controlled with medication-reviewed recent CMP. Continued on bisoprolol. Assessment & Plan (06/27/2022 12:28 AM TEACHING SUPERVISOR): Chronic, stable, controlled with medication-continued bisoprolol. Ordered CMP to be done prior to next visit. Assessment & Plan (02/23/2022 10:52 AM CDT): Controlled on bisoprolol Assessment & Plan (06/14/2021 3:40 PM TEACHING SUPERVISOR): Looking great! With weight loss, d/c hctz [...] health Assessment & Plan (09/22/2019 3:36 PM TEACHING SUPERVISOR): Follow low sodium DASH Diet. Exercise regularly [...] 09/19/2017 Assessment & Plan (06/15/2024 11:13 AM TEACHING SUPERVISOR): Chronic, stable, controlled without medication Will monitor for stability Assessment & Plan (01/09/2023 5:32 AM CDT): Chronic, stable, controlled without medication-will continue to monitor for worsening symptoms,if occurs and is interested, can refer for pelvic floor physical therapy, consider medication, and/or refer to case loader operator for further evaluation and management. Personal history of colon cancer, stage II 09/19 Overview (09/22/2019): no chemo/rx, just removal of the tumors and ff up areas carly, age 38, 3 large polyps cancerous removed. Colonoscopy 05/2010, Dr Reynolds. Assessment & Plan (01/09/2023 5:26 AM CDT): Encouraged to get screening colonoscopy as recommended by teachers aide. Assessment & Plan (06/14/2021 3:41 PM TEACHING SUPERVISOR): Repeat is due 11/2022 Assessment & Plan (09/22/2019 3:35 PM TEACHING SUPERVISOR): Patient to check with Dr Reynolds as [...] 07/10/2023 Assessment & Plan (06/11/2023 10:35 AM TEACHING SUPERVISOR): VSS (low grade temp 99.5F), NAD, lungs CTAB Sx duration 2.5 weeks approximately Recent COVID 05/23/2023 Possible bronchitis . Ddx secondary bacterial PNA post COVID Medrol dose pack Augmentin, azithromycin Tessalon as needed as cough suppressant ER for CP, SOB, vomiting, dizziness, persisting fevers Colon polyps 10/10/2022 01/09/2023 Overview (10/10/2022): Added automatically from request for surgery [id number] Encounter to establish care 06/26/2022 01/09/2023 Assessment & Plan (06/27/2022 12:30 AM TEACHING SUPERVISOR): Reviewed past and current medical history, surgical [...] 01/09/2023 Assessment & Plan (06/27/2022 12:25 AM TEACHING SUPERVISOR): Chronic, present in 2019 and 2020, now resolved upon most recent check, likely improved with weight loss-will continue to monitor periodically. Encouraged continued weight loss. Assessment & Plan (01/05/2021 12:36 PM CDT): On statin Has had weight gain Liver us to further investigate Croup 09/22/2019 05/05/2020 Assessment & Plan (09/22/2019 3:51 PM TEACHING SUPERVISOR): Doxycycline 100mg po bid x 10d Coricidin HBP or guaifenesin DM ok to take for the cough Rest and hydrate Call if high fever, sob, worsening sx Encounters Date Type Department Care Team Description 10/21/2024 Telephone [facility] Primary Care at [address] [phone] Elodia Brunson NP 10/20/2024 Telephone [facility] Primary Care at [address] [phone] Elodia Brunson NP Recommendation Request 10/16/2024 Results Follow-Up [facility] Care at [address] [phone] Ann Larsen NP 10/15/2024 9:31 PM CDT - 10/15/2024 11:59 [place] [address] UTI symptoms Discharge Disposition: Discharge to home or self care 10/15/2024 4:30 PM CDT Office Visit [facility] Care at [address] [phone] Ann Larsen NP UTI symptoms (Primary Dx); Gross hematuria 10/15/2024 Telephone [facility] Care at [address] [phone] Ann Larsen NP Blood in Urine 10/15/2024 Nurse Triage [facility] Primary Care at [address] [phone] Susan rBadford RN from Last 3 Months Immunizations Immunization [...] Added automatica lly from request for surgery [id number] Scalp lesion 03/09/2021 Transaminitis 01/05/2021 Left leg [...] on file Legal Sex Female 6:21 AM TEACHING SUPERVISOR Gender Identity Female 12/29/2020 6:34 AM CDT Sexual Orientation Straight 10/04/2020 6: 47 AM TEACHING SUPERVISOR Occupation Industry Job Start Date Job End [...] of 2) 06/14/2021 06/14/2021, 03/08 Covid-19 Vaccine (2023-2 5 season) 2024 02/26/2022, 07/08/2021, 10/25/2020, Additional [...] Read Routine (OP Routine) 07/27/2024 1:17 PM TEACHING SUPERVISOR Screening mammogram, encounter for COMPREHENSIVE METABOLIC PANEL [...] hyperlipidemia COLONOSCOPY 12/14/2022 8:07 AM CDT THINPREP MOBILE MECHANIC PAP (IMAGE GUIDED) LIQUID-BASED PREP Routine 10/03/2017 3:52 PM TEACHING SUPERVISOR from Last 3 Months or Most Recently Relevant to Health Maintenance Results * Urine culture Urine, clean voided (10/15/2024 9:35 PM CDT) Report Final Report: Less than 100,000 colonies/mL (clinically insignificant growth based on current clinical standards) Organism (CLINICALLY INSIGNIFICANT GROWTH [facility] Urine, clean voided 10/15/2024 9:35 PM CDT 10/15/2024 9:47 PM CDT Narrative [facility] - 10/17/2024 8:33 AM CDT Testing performed by [facility] ([phone]) Ann Larsen NP LAB MICROBIOLOGY - GENERAL [place] Final Result [facility] Department [place] [address] * (ABNORMAL) POCT urinalysis dipstick (10/15/2024 4:40 PM CDT) Color, Urine, POC Dark Yellow Clarity, ur, POC Turbid(A) Clear Glucose, ur, POC Negative Negative MG/DL Bilirubin, ur, POC Small Negative, Small, Moderate, Large Ketones, ur, POC Negative Negative Specific Slinger, POC 1.030 1.003 - 1.030 Blood, ur, POC Large(A) Negative pH, ur, POC 5.5 5.0 - 8.0 Protein, ur, POC 300.(A) Negative Urobilinogen, urine, POC 0.2 0.2 - 1.0 mg/dL Nitrite, ur, POC Negative Negative Leukocytes, ur, POC Trace(A) Negative Lot Number [id number] Urine 10/15/2024 4:40 PM CDT Ann Larsen NP POINT OF CARE TEST ORDERABLES F inal Result * Screening Mammogram Bilateral [place] (07/27/2024 1:17 PM TEACHING SUPERVISOR) Anatomical Region Laterality Modality Breast Bilateral Mammography Impressions 07/27/2024 1:29 PM TEACHING SUPERVISOR BI-RADS ATLAS category (overall): 2 - Benign There is no mammographic evidence of malignancy. A 1 year screening mammogram is recommended. The patient has been or will be contacted. We recommend annual screening mammography for women at average risk of breast cancer beginning at age 40, based on guidelines of the [employer] (ACR Practice Parameter for the Performance of Screening and Diagnostic Mammography) and [employer]. For women with and elevated risk of breast cancer, please refer to the ACR Practice Parameter for specific screening recommendations. The patient will be entered into a reminder system with a target due date of 1 year for her next screening exam. Narrative 07/27/2024 1:29 PM TEACHING SUPERVISOR Screening Mammogram Bilateral [place]: 07/27/24 The [...] suspicious finding in either breast on mammogram. us Self Screening Mammogram IMG MAMMO PROCEDURES Fi nal Result * (ABNORMAL) Hemoglobin A1c (05/23/2024 8:50 AM CDT) Hgb A1C 7.0(H) <5.7 % of total Hgb [facility] Comment: For someone without known diabetes, [...] BLOOD ORDERABLES Final Resul t [facility] [address] [place] [address] * (ABNORMAL) Lipid panel (05/23/2024 8:50 AM [...] LDL-C. Justus GANDHI et al. DANGELO. 2013;310(19): 7560-6511 (http://education.[employer]/faq/SBQ504) Chol/HDL ratio 3.7 <5.0 (calc) [facility] Non-HDL, (LDL+VLDL) 125 <130 mg/dL (calc) [facility] Comment: For patients with diabetes plus 1 major ASCVD risk factor, treating to a non-HDL-C goal of <100 mg/dL (LDL-C of <70 mg/dL) is considered a therapeutic option. Blood 05/23/2024 8:50 AM CDT 05/23/2024 8:51 AM CDT Narrative [facility] - 05/24/2024 9:24 AM CDT FASTING:YES FASTING: YES us Elodia Brunson NP LAB BLOOD ORDERABLES [place]ul [place] [address] [place] [address] * (ABNORMAL) Comprehensive metabolic panel (05/23/2024 8:50 AM CDT) Glucose 105(H) 65 - 99 mg/dL [facility] Comment: Fasting reference interval For someone without known diabetes, a glucose value between 100 and 125 mg/dL is consistent with prediabetes and should be confirmed with a follow-up test. BUN 10 7 - 25 mg/dL [facility] [id number]|2024-12-17 11:12:00|2024-12-17 11:11:00|XMS_ITS|TODD SANTIAGO|External Medical Summaries|[id number]|" Referral Summary Created on: December 17, 2024 Madhavi Goetz : 1965 Sex: Female Author Organization [facility] Address [address] [place] [address] Care Team Providers Care Glue Maker Name Role Phone Elodia Brunson NP Primary Care Provider [phone] Encounters Date Type Department Care Team Description 10/21/2024 Telephone [facility] Primary Care at [address] [phone] Elodia Brunson NP 10/20/2024 Telephone [facility] Primary Care at [address] [phone] Elodia Brunson NP Recommendation Request 10/16/2024 Results Follow-Up [facility] Care at [address] [phone] Ann Larsen NP 10/15/2024 9:31 PM CDT - 10/15/2024 11:59 PM [place] [address] UTI symptoms Discharge Disposition: Discharge to home or self care 10/15/2024 Telephone [facility] Care at [address] [phone] Ann Larsen NP Blood in Urine 10/15/2024 4:30 PM CDT Office Visit [facility] Care at [address] [phone] Ann Larsen NP UTI symptoms (Primary Dx); Gross hematuria 10/15/2024 Nurse Triage [facility] Primary Care at [place] [address] [facility] [address] [place] [address] Susan Bradford RN from Last 3 Months Allergies No known active allergies Medications meloxicam (MOBIC) 15 mg tablet Take 1 tablet (15 mg total) by mouth daily 07/05/2023 Active desloratadine (CLARINEX) 5 mg tabletIndication s:Non-seasonal allergic rhinitis, unspecified trigger Take 1 tablet by mouth daily as needed for congestion. 90 tablet 3 06/15/2024 Active valACYclovir (VALTREX) 1 gram tabletIndication s:Recurrent cold sores TAKE 2 TABLETS (2,000 MG TOTAL) BY MOUTH TWICE A DAY 12 tablet 07/06/2024 Active atorvastatin (LIPITOR) 20 mg tablet TAKE 1 TABLET BY MOUTH EVERY DAY 100 tablet 11/15/2024 Active bisoprolol (ZEBETA) 5 mg tablet TAKE 1 TABLET (5 MG TOTAL) BY MOUTH DAILY. 100 tablet 11/15/2024 Active Active Problems Problem Noted Date Diagnosed Date Encounter for diabetic foot exam 06/16/2024 Assessment & Plan (06/16/2024 7:40 AM TEACHING SUPERVISOR): Diabetic foot exam performed with monofilament, no abnormal findings Class 3 severe obesity due t o excess calories with body mass index (BMI) of 45.0 to 49.9 in adult 06/15/2024 Assessment & Plan (06/15/2024 11:19 AM TEACHING SUPERVISOR): Chronic, stable Encouraged to: Make healthy food choices, limiting intake of concentrated sweets, cholesterol, and saturated fat Monitor daily caloric intake and portion sizes Exercise most days of the week for a goal of at least 150 minutes of exercise per week Encounter for screening mamm ogram for malignant neoplasm of breast 07/10/2023 Elevated ALT measurement 07/10/2023 Assessment & Plan (06/15/2024 11:19 AM TEACHING SUPERVISOR): Chronic, stable Encouraged continued weight loss and a low-fat, low-cholesterol diet Will monitor for stability Assessment & Plan (07/10/2023 4:15 AM TEACHING SUPERVISOR): Chronic, recurrent, normal at last check Reviewed lab results dated 07/05/2023 Encouraged continued weight loss, low-fat, low-cholesterol diet Ordered CMP to be done prior to next visit Vitamin D deficiency 01/09/2023 Assessment & Plan (06/15/2024 11:17 AM TEACHING SUPERVISOR): Chronic, stable, not controlled Recommended vitamin D3 5000 IU daily with a meal Will monitor for stability Assessment & Plan (07/10/2023 4:18 AM TEACHING SUPERVISOR): Chronic, improved Reviewed labs dated 07/05/2023 Recommended [...] 01/09/2023 Assessment & Plan (06/15/2024 11:18 AM TEACHING SUPERVISOR): Chronicity unknown, normal at most recent check Will monitor for stability Assessment & Plan (07/10/2023 4:15 AM TEACHING SUPERVISOR): New diagnosis, normal at most recent check [...] (10/10/2022): Added automatically from request for surgery [id number] Assessment & Plan (01/09/2023 5:21 AM CDT): Encouraged to get screening colonoscopies as recommended by teachers aide. Encounter for vitamin deficiency screening 06/26 Assessment & Plan (06/27/2022 12:30 AM TEACHING SUPERVISOR): Ordered vitamin-D 25 OH. Screening for deficiency anemia 06/26/2022 Assessment & Plan (06/27/2022 12:25 AM TEACHING SUPERVISOR): Ordered CBC. 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 Assessment & Plan (06/27/2022 12:25 AM TEACHING SUPERVISOR): Chronic, stable, controlled with medication-continued on Valtrex as directed as needed, refills sent to pharmacy per request. Need for vaccination 06/26/2022 Assessment & Plan (06/27/2022 12:27 AM TEACHING SUPERVISOR): Influenza vaccine given. Chronic pain of both knees 10/18/2021 Assessment & Plan (06/15/2024 11:17 AM TEACHING SUPERVISOR): Chronic, stable Continued on meloxicam Can refer [...] 03/09/2021 Assessment & Plan (06/15/2024 11:16 AM TEACHING SUPERVISOR): Chronic, uncontrolled/worsened, not on medication Discussed options for treatment, is considering Encouraged weight loss efforts Assessment & Plan (07/10/2023 4:17 AM TEACHING SUPERVISOR): Chronic, stable Reviewed most recent hemoglobin A1c dated 12/17/2022 Encouraged continued weight loss Ordered CMP and hemoglobin A1c to be done prior to next Assessment & Plan (01/09/2023 5:27 AM CDT): Chronic, stable-encouraged weight loss efforts. Reviewed recent CMP and hemoglobin A1c at visit today. Assessment & Plan (06/27/2022 12:29 AM TEACHING SUPERVISOR): Chronic, improved with weight loss-ordered hemoglobin A1c and CMP to be done prior to next visit. Encouraged efforts at continued weight loss. Assessment & Plan (06/14/2021 3:42 PM TEACHING SUPERVISOR): ha1c is 5.8 today- cont debra Assessment & Plan (03/09/2021 8:39 AM CDT): ha1c has decreased from 6.4>5.9- this is a tremendous improvement! Cont debra. Annual physical exam 09/22/2019 Assessment & Plan (06/15/2024 11:13 AM TEACHING SUPERVISOR): Reviewed past and current medical history, surgical [...] needed. Assessment & Plan (06/14/2021 3:42 PM TEACHING SUPERVISOR): Second shingrix given today Advise mrna booster in 1-2 weeks after shingrix utd on flu shot, tdap Cont to work on diet and weight loss rtc 4 months Assessment & Plan (09/22/2019 3:17 PM TEACHING SUPERVISOR): Wear sunscreen while outdoors. Wear seatbelts while [...] 09/22/2019 Assessment & Plan (06/15/2024 11:14 AM TEACHING SUPERVISOR): Chronic, episodic, currently asymptomatic Will monitor for stability Encouraged to elevate legs when able and to wear compression socks or stockings Assessment & Plan (01/09/2023 5:33 AM CDT): Chronic, stasis-will continue to monitor for worsening symptoms or edema. Encouraged elevation of extremities when able and compression socks or stockings. Assessment & Plan (09/22/2019 3:52 PM TEACHING SUPERVISOR): Work on wt loss Get up and move around while at work ,periodically Wear compression stockings when travelling long distance History of basal cell carcinoma (BCC) of skin Overview (09/22/2019): r upper arm, Dr Davis Assessment & Plan (01/09/2023 5:28 AM CDT): Encouraged to follow-up with dermatology as recommended. Assessment & Plan (09/22/2019 3:53 PM TEACHING SUPERVISOR): Sunscreen Cont close surveillance with help desk engineer Non-seasonal allergic rhinitis 09/22/2018 Overview (09/22/2019): Allergic to dust and mold Assessment & Plan (06/15/2024 11:11 AM TEACHING SUPERVISOR): Chronic, stable, controlled with medication Continued on Clarinex Assessment & Plan (01/09/2023 5:32 AM CDT): Chronic, stable, controlled with medication-continued on Clarinex. Assessment & Plan (09/22/2019 3:36 PM TEACHING SUPERVISOR): Cont clarinex daily Mixed hyperlipidemia 09/23/2017 Assessment & Plan (06/15/2024 11:12 AM TEACHING SUPERVISOR): Chronic, uncontrolled, with minimally elevated triglycerides and low HDL Continued on atorvastatin Recommended low-fat/low-cholesterol diet, high in fiber and plant protein Assessment & Plan (07/10/2023 4:16 AM TEACHING SUPERVISOR): Chronic, uncontrolled, with minimally elevated triglycerides and [...] lipids. Assessment & Plan (06/27/2022 12:26 AM TEACHING SUPERVISOR): Chronic, stable, with slight elevation in triglycerides at last check-continued on simvastatin. Lipid panel ordered prior to next visit. Assessment & Plan (02/23/2022 10:53 AM CDT): c Assessment & Plan (06/14/2021 3:40 PM TEACHING SUPERVISOR): Suspect cholesterol will be much better, check now, dec dose if possible and recheck before our next appt in 4 months at which time I Hope to stop it Assessment & Plan (05/06/2020 3:16 PM CDT): Cont low chol diet and medication Cont to monitor liver panel Assessment & Plan (09/22/2019 3:38 PM TEACHING SUPERVISOR): Take the chol pill daily in am. Lipids in 6mos Essential (primary) hypertension 09/19/2017 Assessment & Plan (06/15/2024 11:11 AM TEACHING SUPERVISOR): Chronic, stable, controlled with medication Continued on bisoprolol Assessment & Plan (01/23/2024 12:30 PM CDT): Chronic, stable, controlled with medication Continued on bisoprolol Assessment & Plan (07/10/2023 4:15 AM TEACHING SUPERVISOR): Chronic, stable, controlled with medication Continued on bisoprolol Ordered CMP be done prior to next visit Assessment & Plan (01/09/2023 5:19 AM CDT): Chronic, stable, controlled with medication-reviewed recent CMP. Continued on bisoprolol. Assessment & Plan (06/27/2022 12:28 AM TEACHING SUPERVISOR): Chronic, stable, controlled with medication-continued bisoprolol. Ordered CMP to be done prior to next visit. Assessment & Plan (02/23/2022 10:52 AM CDT): Controlled on bisoprolol Assessment & Plan (06/14/2021 3:40 PM TEACHING SUPERVISOR): Looking great! With weight loss, d/c hctz [...] health Assessment & Plan (09/22/2019 3:36 PM TEACHING SUPERVISOR): Follow low sodium DASH Diet. Exercise regularly [...] 09/19/2017 Assessment & Plan (06/15/2024 11:13 AM TEACHING SUPERVISOR): Chronic, stable, controlled without medication Will monitor for stability Assessment & Plan (01/09/2023 5:32 AM CDT): Chronic, stable, controlled without medication-will continue to monitor for worsening symptoms,if occurs and is interested, can refer for pelvic floor physical therapy, consider medication, and/or refer to case loader operator for further evaluation and management. Personal history of colon cancer, stage II 09/19 Overview (09/22/2019): no chemo/rx, just removal of the tumors and ff up areas carly, age 38, 3 large polyps cancerous removed. Colonoscopy 05/2010, Dr Reynolds. Assessment & Plan (01/09/2023 5:26 AM CDT): Encouraged to get screening colonoscopy as recommended by teachers aide. Assessment & Plan (06/14/2021 3:41 PM TEACHING SUPERVISOR): Repeat is due 11/2022 Assessment & Plan (09/22/2019 3:35 PM TEACHING SUPERVISOR): Patient to check with Dr Reynolds as [...] 07/10/2023 Assessment & Plan (06/11/2023 10:35 AM TEACHING SUPERVISOR): VSS (low grade temp 99.5F), NAD, lungs CTAB Sx duration 2.5 weeks approximately Recent COVID 05/23/2023 Possible bronchitis . Ddx secondary bacterial PNA post COVID Medrol dose pack Augmentin, azithromycin Tessalon as needed as cough suppressant ER for CP, SOB, vomiting, dizziness, persisting fevers Colon polyps 10/10/2022 01/09/2023 Overview (10/10/2022): Added automatically from request for surgery [id number] Encounter to establish care 06/26/2022 01/09/2023 Assessment & Plan (06/27/2022 12:30 AM TEACHING SUPERVISOR): Reviewed past and current medical history, surgical [...] 01/09/2023 Assessment & Plan (06/27/2022 12:25 AM TEACHING SUPERVISOR): Chronic, present in 2019 and 2020, now resolved upon most recent check, likely improved with weight loss-will continue to monitor periodically. Encouraged continued weight loss. Assessment & Plan (01/05/2021 12:36 PM CDT): On statin Has had weight gain Liver us to further investigate Croup 09/22/2019 05/05/2020 Assessment & Plan (09/22/2019 3:51 PM TEACHING SUPERVISOR): Doxycycline 100mg po bid x 10d Coricidin [...] on file Legal Sex Female 6:21 AM TEACHING SUPERVISOR Gender Identity Female 12/29/2020 6:34 AM CDT Sexual Orientation Straight 10/04/2020 6: 47 AM TEACHING SUPERVISOR Occupation Industry Job Start Date Job End [...] Read Routine (OP Routine) 07/27/2024 1:17 PM TEACHING SUPERVISOR Screening mammogram, encounter for COMPREHENSIVE METABOLIC PANEL [...] hyperlipidemia COLONOSCOPY 12/14/2022 8:07 AM CDT THINPREP MOBILE MECHANIC PAP (IMAGE GUIDED) LIQUID-BASED PREP Routine 10/03/2017 3:52 PM TEACHING SUPERVISOR from Last 3 Months or Most Recently Relevant to Health Maintenance Results * Urine culture Urine, clean voided (10/15/2024 9:35 PM CDT) Report Final Report: Less than 100,000 colonies/mL (clinically insignificant growth based on current clinical standards) Organism (CLINIC[facility] INSIGNIFICANT GR[facility]TH [facility] Urine, clean voided 10/15/2024 9:35 PM CDT 10/15/2024 9:47 PM CDT Narrative S[facility]ACKSON - 10/17/2024 8:33 AM CDT Testing performed by [facility] Microbiology Laboratory ([phone]) Ann Larsen NP LAB MICROBIOLOGY - [facility] [place] Final Result [facility] [place] [address] * (ABNORMAL) POCT urinalysis dipstick (10/15/2024 4:40 PM CDT) Color, Urine, POC Dark Yellow Clarity, ur, POC Turbid(A) Clear Glucose, ur, POC Negative Negative MG/DL Bilirubin, ur, POC Small Negative, Small, Moderate, Large Ketones, ur, POC Negative Negative Specific Slinger, POC 1.030 1.003 - 1.030 Blood, ur, POC Large(A) Negative pH, ur, POC 5.5 5.0 - 8.0 Protein, ur, POC 300.(A) Negative Urobilinogen, urine, POC 0.2 0.2 - 1.0 mg/dL Nitrite, ur, POC Negative Negative Leukocytes, ur, POC Trace(A) Negative Lot Number [id number] Urine 10/15/2024 4:40 PM CDT Ann Larsen NP POINT OF CARE TEST ORDERABLES F inal Result * Screening Mammogram Bilateral [place] (07/27/2024 1:17 PM TEACHING SUPERVISOR) Anatomical Region Laterality Modality Breast Bilateral Mammography Impressions 07/27/2024 1:29 PM TEACHING SUPERVISOR BI-RADS ATLAS category (overall): 2 - Benign There is no mammographic evidence of malignancy. A 1 year screening mammogram is recommended. The patient has been or will be contacted. We recommend annual screening mammography for women at average risk of breast cancer beginning at age 40, based on guidelines of the [employer] (ACR Practice Parameter for the Performance of Screening and Diagnostic Mammography) and [employer]. For women with and elevated risk of breast cancer, please refer to the ACR Practice Parameter for specific screening recommendations. The patient will be entered into a reminder system with a target due date of 1 year for her next screening exam. Narrative 07/27/2024 1:29 PM TEACHING SUPERVISOR Screening Mammogram Bilateral [place]: 07/27/24 The [...] suspicious finding in either breast on mammogram. us Self Screening Mammogram IMG MAMMO PROCEDURES Fi nal Result * (ABNORMAL) Hemoglobin A1c (05/23/2024 8:50 AM CDT) Hgb A1C 7.0(H) <5.7 % of total Hgb [facility] Comment: For someone without known diabetes, [...] NP LAB BLOOD ORDERABLES Final Resul t Performing Organization Address City/[facility]/ZIP Co de Phone Number [facility] [address] [place] [address] * (ABNORMAL) Lipid panel (05/23/2024 8:50 AM CDT) Pathologist [facility] Cholesterol 171 <200 mg/dL [facility] [...] equation in the estimation of LDL-C. Justus SS et al. DANGELO. 2013;310(19): 5566-3132 (http://education.[employer]/faq/GFS617) Chol/HDL ratio 3.7 <5.0 (calc) [facility] [...] BLOOD ORDERABLES Final Resul t [facility] [address] [phone] * (ABNORMAL) Comprehensive metabolic panel (05/23/2024 8:50 AM CDT) [facility] Glucose 105(H) 65 - 99 mg/dL [facility] [...] CDT FASTING:YES FASTING: YES us Elodia Brunson PERMANENT MOLD SUPERVISOR LAB BLOOD ORDERABLES Final Resul t [facility] [address] [address] * COLONOSCOPY (12/14/2022 8:07 AM CDT) Anatomical Region Laterality Modality Other Narrative Procedure Note Lamin Reynolds MD - 12/14/2022 8:07 AM CDT [facility] Patient Name: Madhavi Goetz Procedure Date: 12/14/2022 8:07 AM Date of : 1965 Admit Type: Outpatient Age: 57 Gender: Female Attending MD: Lamin Reynolds M.D. Room: [facility] ENDOSCOPY ROOM 02 Note Status: Finalized Procedure: Colonoscopy Indications: Personal history of colonic polyps Referring MD: Providers: Lamin Reynolds M.D. Medicines: Propofol per Anesthesia Complications: No immediate complications. Estimated Blood Loss: Estimated blood
--- OUTSIDE RECORDS SUMMARY | 2024-12-17 11:12 | XMS_ITS | Encounter Summary ---
Author Organization [facility] Address [address] [facility] [place] [address] Care Team Providers Care Cardiac Care Unit Nurse Name Role Phone Unavailable Primary Care Provider Unavailabl e Encounter Details Date Type Department Care Team (Late st Contact Info) Description 05/05/2019 Lab Requisition [facility] DermPath Lab [address] [facility], [facility] [place] [address] Lupe Davis DO [address] [facility] [address] [place] [address] Social History Tobacco Use Types Packs/Day Years [...] AM CDT) Case Report Dermatopathology Report Case: [id number] Authorizing Provider: Lupe Davis DO Collected: 05/04/2019 12:00 AM Ordering Location: [facility] DermPath Lab Received: 05/05/2019 12:15 PM Pathologist: [...] proximal: ACTINIC KERATOSIS, LICHENOID (L57.0) 1:21 PM [facility] DERMATOPATHOLOGY LABORATORY Clinical History A-B: R/O NMSC. C: R/O MM. D: R/O NMSC. 1:21 PM [facility] DERMATOPATHOLOGY LABORATORY Gross Description Specimen A: Received is one formalin filled container labeled with the patient's name and designated right upper arm. The specimen consists of a shave measuring 4d6r6kz. Jar 0. Specimen B: Received is one formalin filled container labeled with the patient's name and designated right forearm. The specimen consists of a shave measuring 8f7w5nj. Jar 0. Specimen C: Received is one formalin filled container labeled with the patient's name and designated left FA distal. The specimen consists of a shave measuring 9b0a1ov. Jar 0. Specimen D: Received is one formalin filled container labeled with the patient's name and designated left FA proximal. The specimen consists of a shave measuring 6z5y8lc. Jar 0. 1:21 PM [facility] DERMATOPATHOLOGY LABORATORY Microscopic Description Specimen A. [...] characteristic determined by the Dermatopathology Laboratory at [facility], directed by Dr. Verónica Mendoza. These tests need not be, and therefore are not, approved by the [place] Food and Drug Administration. The tests are used for clinical purposes. Billing Codes Specimen Charges Stain Charges 78085 24769 88472 64532 1 1 1 1 9 1:21 PM [...] - PATHOLOGY/CYTOLOGY ORDERABLES Final Result DERMATOPATHOLOGY LABORATORY [facility] - Department of Dermatology [address] [place] [address] 5th [place] [address], [facility] [phone] documented in this encounter Visit Diagnoses Not on filedocumented in this encounter
--- OUTSIDE RECORDS SUMMARY | 2024-12-17 11:12 | XMS_ITS | Encounter Summary ---
Author Organization [facility] Address [address] [facility] [place] [address] Care Team Providers Care Staff Nuclear Medicine Technologist Name Role Phone Unavailable Primary Care Provider Unavailabl e Encounter Details Date Type Department Care Team (Late st Contact Info) Description 01/25/2020 Lab Requisition [facility] DermPath Lab [address] [facility], [facility] [place] [address] Lupe Davis DO [address] [facility] [address] [place] [address] Social History Tobacco Use Types Packs/Day Years [...] AM CDT) Case Report Dermatopathology Report Case: [id number] Authorizing Provider: Lupe Davis DO Collected: 01/21/2020 12:00 AM Ordering Location: [facility] DermPath Lab Received: 01/25/2020 12:04 PM Pathologist: [...] The specimen consists of a shave measuring 2k5n7yg. Jar 0. 0 4:32 PM CDT DERMATOPATHOLOGY [...] purposes. Billing Codes Specimen Charges Stain Charges 54949 1 0 4:32 PM CDT DERMATOPATHOLOGY LABORATORY Embedded Images 0 4:32 PM CDT DERMATOPATHOLOGY LABORATORY Pathology/Cytolog y TISSUE SPECIMEN FROM SKIN / Unknown 01/21/2020 01/25/2020 12:04 PM CDT us Lupe Davis DO LAB - PATHOLOGY/CYTOLOGY ORDERABLES Final Result DERMATOPATHOLOGY LABORATORY [facility] - Department of Dermatology Insert [place] [address], [facility] [phone] documented in this encounter Visit Diagnoses Not on filedocumented in this encounter
--- NOTE | 2024-12-17 11:30 | ECG_ITS ---
Test Date: 2024-12-17 11:23:38 Measurements Intervals [place] Rate: 80 P: 24 AL: 160 QRS: -6 QRSD: 98 T: -2 QT: 360 QTc: 415 Interpretive Statements SINUS RHYTHM LOW QRS VOLTAGE IN PRECORDIAL LEADS [QRS DEFLECTION < 1.0 mV IN CHEST LEADS] PATTERN CONSISTENT WITH PULMONARY DISEASE NONSPECIFIC T-WAVE ABNORMALITY ABNORMAL ECG No previous ECG available for comparison Electronically Signed On 12-18-2024 09:39:43 CDT by Javed Velazquez M.D.
[2024-12-17 13:21] LABS: INR 0.9; Prothrombin Time 12.8 Seconds (11.1-14.7)
[2024-12-17 13:22] LABS: Partial Thromboplastin Time 27.7 Seconds (22.3-36.8)
== END 2024-12-17 11:06 | disposition home or self-care (01) ==
LOC: ANHSURGERY 11:10
PROVIDERS: PCP Family Medicine; Visit Provider Urology
DX: Z01.818 Encounter for other preprocedural examination (principal); R94.31 Abnormal electrocardiogram [ECG] [EKG]; N20.0 Calculus of kidney; I10 Essential (primary) hypertension
CPT/HCPCS: 36415; 85610; 85730; 87086; 93005

== ENCOUNTER 2024-12-23 00:58 | Day surgery (SDC) | payer BC, OTHER, SELFPAY ==
[2024-12-14 09:46] VITALS: BMI 50.8
--- NOTE | 2024-12-14 09:55 | PC.NURSE ---
Report to the Outpatient Waiting Room, entrance under the green pavilion located off [facility], at time _1100_ on date _[id number]_. Planned Procedure Time: _1pm_.? Time changes happen often and if your time is changed the preop area will call you the afternoon before. - You and your visitor will be asked to self-screen and do not enter if you have any COVID symptoms. Please call surgeon if you need to reschedule. - A mask is optional within the hospital at this time. Patients may have clear liquids (water, carbonated beverages, clear teas, apple juice) until 3 hours prior to surgery with a maximum of 20 ounces. - No food from midnight until time of surgery and no smoking, or chewing tobacco (or any form of nicotine). No chewing gum, candy or mints. Take only the following medications with a SIP of water on the morning of surgery: ____Bisoprolol fumarate___ DO NOT STOP ANY OF YOUR OTHER PRESCRIPTION MEDICATIONS PRIOR TO SURGERY EXCEPT THE FOLLOWING Hold all vitamins and supplements for 3 days per anesthesiologist. Medications to discontinue per physician ____Meloxicam____ Date to take last dose___Stopped by patient [phone]___ Please no make-up, nail ugandan, hairspray, perfume, deodorant, or body powder the day of surgery.? No jewelry (including any body piercings) or valuables the day of surgery, leave them at home.? Please take a shower or bath the night before, or the morning of, surgery with an antibacterial soap.? Wear comfortable, loose fitting clothing.? - Jewelry must be removed prior to entering the operating room.? Rings and piercings that are not removed may be cut off. - The hospital will not accept responsibility for valuables.? - Please leave all valuables, including medications, at home the day of surgery. If you are going home after surgery, a licensed catering truck driver must drive you home.? - NO public transportation without another adult if you receive anesthesia. - We recommend that an adult stay with you for 24 hours following discharge. - We also recommend that you do not drive, make important decision, drink alcoholic beverages, or take any drugs that were not prescribed by your health care provider for at least 24 hours after your discharge time. Follow any additional instructions given to you from your surgeon. Telephone instructions given to ___Rhonda__and asked if any additional questions and then verbalized understanding. Patient advised to call surgeon office or pre surgery nurse liaison [phone] if any additional questions.
--- NOTE | 2024-12-22 06:11 | P.HP_ITS ---
History of Present Illness History of Present Illness Consent: Risks, benefits, and alternatives have been discussed and questions answered. Patient agrees to proceed with procedure. Chief complaint: bilateral kidney stones Narrative: Michelle Goetz is a 59 year old female without prior history of urolithiasis recently underwent evaluation for hematuria. CT scan revealed 17mm and 11mm stone in left kidney and 5mm stone right kidney. After discussion of treatment options she's elected to start with left ESWL understanding additional therapy may be needed. [facility] Social History Social History Smoking status: Never smoker Living arrangements: with family Spiritual care concerns: No Meds Home Medications and Allergies Home Medications ?Medication ?Instructions ?Recorded ?Confirmed ?Type atorvastatin 20 mg tablet 20 mg PO DAILY 12/14/24 12/14/24 History bisoprolol fumarate 5 mg tablet 5 mg PO DAILY 12/14/24 12/14/24 History desloratadine 5 mg tablet 5 mg PO DAILY 12/14/24 12/14/24 History (Clarinex) meloxicam 15 mg tablet 15 mg PO DAILY 12/14/24 12/14/24 History Allergies Allergy/AdvReac Type Severity Reaction Status Date / Time No Known Allergies Allergy Verified 12/14/24 09:43 Exam Const: General: no acute distress Resp: Effort & Inspection: normal respiratory effort GI: Inspection: non-distended GI Palp: No abdominal tenderness and No Guarding due to palpation present (GI) Auscultation: normal bowel sounds Assessment and Plan Assessment and plan (1) Bilateral kidney stones: Code(s): N20.0 - Calculus of kidney Status: Acute Assessment and Plan: * Cystoscopy, left ureteral stent placement, left ESWL
[2024-12-23] VITALS (7 sets, daily range): BP systolic 109–154; BP diastolic 63–92; PULSE 66–74; RESP 12–20; TEMP 36.3–36.6; O2SAT 93–97; BMI 51.2
--- NOTE | ~2024-12-23 | XR_ITS ---
XR abdomen/kub 1V 12/23/2024 12:30 Indication: Preop ESWL Procedure: KUB Comparison: CT dated 11/18/2024 Findings: There are bilateral renal stones. Largest stones located centrally in the left kidney. Chepe l gas pattern nonobstructive. There are pelvic phleboliths. Severe lumbar spondylosis with levoscolio sis. There are cholecystectomy clips. Nonobstructive bowel gas pattern. Impression: 1: Bilateral nephrolithiasis. Reviewed, dictated and finalized at location B. Impression: 1: Bilateral nephrolithiasis.
--- OUTSIDE RECORDS SUMMARY | 2024-12-23 01:01 | XMS_ITS | Encounter Summary ---
Author Organization [facility] Address [address] [facility] [place] [address] Care Team Providers Care Corporate Banking Officer Name Role Phone Unavailable Primary Care Provider Unavailabl e Encounter Details Date Type Department Care Team (Late st Contact Info) Description 08/15/2020 Lab Requisition [facility] DermPath Lab [address] [facility], [facility] [place] [address] Lupe Davis DO [address] [facility] [address] [place] [address] Social History Tobacco Use Types Packs/Day Years [...] Comments DERMATOPATHOLOGY Routine 08/11/2020 12:0 0 AM WOOD MILLING MACHINE OPERATOR documented in this encounter Results * DERMATOPATHOLOGY (08/11/2020 12:00 AM WOOD MILLING MACHINE OPERATOR) Case Report Dermatopathology Report Case: [id number] Authorizing Provider: Lupe Davis DO Collected: 08/11/2020 12:00 AM Ordering Location: [facility] Care DermPath Lab Received: 08/15/2020 10:19 AM Pathologist: Jc Mendoza MD Specimen: Skin, right posterior ankle 1:33 PM WOOD MILLING MACHINE OPERATOR DERMATOPATHOLOGY LABORATORY Final Diagnosis Specimen A. SKIN, right posterior ankle: BASAL CELL CARCINOMA, SUPERFICIAL MULTIFOCAL (C44.712) 1:33 PM WOOD MILLING MACHINE OPERATOR DERMATOPATHOLOGY LABORATORY at 1333 WOOD MILLING MACHINE OPERATOR Clinical History R/O NMSC vs LPLK, non-healing. 1 1:33 PM WOOD MILLING MACHINE OPERATOR DERMATOPATHOLOGY LABORATORY Gross Description Specimen A: Received is one formalin filled container labeled with the patient's name and designated right posterior ankle. The specimen consists of a shave measuring 1x5g1ar. Jar 0. 1 1:33 PM WOOD MILLING MACHINE OPERATOR DERMATOPATHOLOGY LABORATORY Microscopic Description Specimen A. SKIN, right posterior ankle: Attached to the undersurface of the epidermis, there are small aggregates of basaloid cells with a high nuclear to cytoplasmic ratio and peripheral palisading. 1 1:33 PM WOOD MILLING MACHINE OPERATOR DERMATOPATHOLOGY LABORATORY Disclaimer An external and internal positive and negative controls are appropriate for the histochemical, immunohistochemical and immunofluorescence stain(s) in this case (if any), except where stated explicitly. The performance characteristics of the stain(s) cited in this report were developed and its performance characteristic determined by the Dermatopathology Laboratory at [facility], directed by Dr. Verónica Mendoza. These tests need not be, and therefore are not, approved by the [place] Food and Drug Administration. The tests are used for clinical purposes. Billing Codes Specimen Charges Stain Charges 61231 1 1 1:33 PM WOOD MILLING MACHINE OPERATOR DERMATOPATHOLOGY LABORATORY Embedded Images 1 1:33 PM WOOD MILLING MACHINE OPERATOR DERMATOPATHOLOGY LABORATORY Pathology/Cytolog y TISSUE SPECIMEN FROM SKIN / Unknown 08/11/2020 08/15/2020 10:19 AM WOOD MILLING MACHINE OPERATOR Lupe Davis DO LAB - PATHOLOGY/CYTOLOGY ORDERABLES Final Result DERMATOPATHOLOGY LABORATORY [facility] - Department of Dermatology [address] [place] [address], [facility] [phone] documented in this encounter Visit Diagnoses Not on filedocumented in this encounter
--- OUTSIDE RECORDS SUMMARY | 2024-12-23 01:01 | XMS_ITS | Encounter Summary ---
Author Organization [facility] Address [address] [place] [address] Care Team Providers Care Institutional Research Director Name Role Phone Unavailable Primary Care Provider Unavailabl e Encounter Details Date Type Department Care Team (Late st Contact Info) Description 05/05/2019 Lab Requisition [facility] DermPath Lab [address] [facility], [facility] [place] [address] Lupe Davis DO [address] [facility] [address] [place] [address] Social History Tobacco Use Types Packs/Day Years [...] AM CDT) Case Report Dermatopathology Report Case: [id number] Authorizing Provider: Lupe Davis DO Collected: 05/04/2019 12:00 AM Ordering Location: [facility] DermPath Lab Received: 05/05/2019 12:15 PM Pathologist: [...] proximal: ACTINIC KERATOSIS, LICHENOID (L57.0) 1:21 PM [facility] DERMATOPATHOLOGY LABORATORY at 1321 CDT Clinical History A-B: R/O NMSC. C: R/O MM. D: R/O NMSC. 1:21 PM [facility] DERMATOPATHOLOGY LABORATORY Gross Description Specimen A: Received is one formalin filled container labeled with the patient's name and designated right upper arm. The specimen consists of a shave measuring 7x6n7hs. Jar 0. Specimen B: Received is one formalin filled container labeled with the patient's name and designated right forearm. The specimen consists of a shave measuring 2p4z8nc. Jar 0. Specimen C: Received is one formalin filled container labeled with the patient's name and designated left FA distal. The specimen consists of a shave measuring 6v4n4lv. Jar 0. Specimen D: Received is one formalin filled container labeled with the patient's name and designated left FA proximal. The specimen consists of a shave measuring 5d1x4yh. Jar 0. 1:21 PM [facility] DERMATOPATHOLOGY LABORATORY Microscopic Description Specimen A. [...] purposes. Billing Codes Specimen Charges Stain Charges 19060 92114 43044 60886 1 1 1 1 9 1:21 PM [...] - PATHOLOGY/CYTOLOGY ORDERABLES Final Result DERMATOPATHOLOGY LABORATORY [facility] - Department of Dermatology [address] [place] [address] 5th [place] [address], [facility] [phone] documented in this encounter Visit Diagnoses Not on filedocumented in this encounter
--- OUTSIDE RECORDS SUMMARY | 2024-12-23 01:01 | XMS_ITS | Clinical Summary ---
Author Organization [facility] Address [address] [place] [address] Care Team Providers Care Water Resources Project Manager Name Role Phone Elodia Brunson NP Primary Care Provider [phone] Allergies No known active allergies Medications meloxicam [...] 06/16/2024 Assessment & Plan (06/16/2024 7:40 AM MALTED MILK MASHER): Diabetic foot exam performed with monofilament, no abnormal findings Class 3 severe obesity due t o excess calories with body mass index (BMI) of 45.0 to 49.9 in adult 06/15/2024 Assessment & Plan (06/15/2024 11:19 AM MALTED MILK MASHER): Chronic, stable Encouraged to: Make healthy food choices, limiting intake of concentrated sweets, cholesterol, and saturated fat Monitor daily caloric intake and portion sizes Exercise most days of the week for a goal of at least 150 minutes of exercise per week Encounter for screening mamm ogram for malignant neoplasm of breast 07/10/2023 Elevated ALT measurement 07/10/2023 Assessment & Plan (06/15/2024 11:19 AM MALTED MILK MASHER): Chronic, stable Encouraged continued weight loss and a low-fat, low-cholesterol diet Will monitor for stability Assessment & Plan (07/10/2023 4:15 AM MALTED MILK MASHER): Chronic, recurrent, normal at last check Reviewed lab results dated 07/05/2023 Encouraged continued weight loss, low-fat, low-cholesterol diet Ordered CMP to be done prior to next visit Vitamin D deficiency 01/09/2023 Assessment & Plan (06/15/2024 11:17 AM MALTED MILK MASHER): Chronic, stable, not controlled Recommended vitamin D3 5000 IU daily with a meal Will monitor for stability Assessment & Plan (07/10/2023 4:18 AM MALTED MILK MASHER): Chronic, improved Reviewed labs dated 07/05/2023 Recommended [...] 01/09/2023 Assessment & Plan (06/15/2024 11:18 AM MALTED MILK MASHER): Chronicity unknown, normal at most recent check Will monitor for stability Assessment & Plan (07/10/2023 4:15 AM MALTED MILK MASHER): New diagnosis, normal at most recent check [...] (10/10/2022): Added automatically from request for surgery [id number] Assessment & Plan (01/09/2023 5:21 AM CDT): Encouraged to get screening colonoscopies as recommended by teacher dramatics. Encounter for vitamin deficiency screening 06/26 Assessment & Plan (06/27/2022 12:30 AM MALTED MILK MASHER): Ordered vitamin-D 25 OH. Screening for deficiency anemia 06/26/2022 Assessment & Plan (06/27/2022 12:25 AM MALTED MILK MASHER): Ordered CBC. 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 Assessment & Plan (06/27/2022 12:25 AM MALTED MILK MASHER): Chronic, stable, controlled with medication-continued on Valtrex as directed as needed, refills sent to pharmacy per request. Need for vaccination 06/26/2022 Assessment & Plan (06/27/2022 12:27 AM MALTED MILK MASHER): Influenza vaccine given. Chronic pain of both knees 10/18/2021 Assessment & Plan (06/15/2024 11:17 AM MALTED MILK MASHER): Chronic, stable Continued on meloxicam Can refer [...] 03/09/2021 Assessment & Plan (06/15/2024 11:16 AM MALTED MILK MASHER): Chronic, uncontrolled/worsened, not on medication Discussed options for treatment, is considering Encouraged weight loss efforts Assessment & Plan (07/10/2023 4:17 AM MALTED MILK MASHER): Chronic, stable Reviewed most recent hemoglobin A1c dated 12/17/2022 Encouraged continued weight loss Ordered CMP and hemoglobin A1c to be done prior to next Assessment & Plan (01/09/2023 5:27 AM CDT): Chronic, stable-encouraged weight loss efforts. Reviewed recent CMP and hemoglobin A1c at visit today. Assessment & Plan (06/27/2022 12:29 AM MALTED MILK MASHER): Chronic, improved with weight loss-ordered hemoglobin A1c and CMP to be done prior to next visit. Encouraged efforts at continued weight loss. Assessment & Plan (06/14/2021 3:42 PM MALTED MILK MASHER): ha1c is 5.8 today- cont saxenda Assessment & Plan (03/09/2021 8:39 AM CDT): ha1c has decreased from 6.4>5.9- this is a tremendous improvement! Cont debra. Annual physical exam 09/22/2019 Assessment & Plan (06/15/2024 11:13 AM MALTED MILK MASHER): Reviewed past and current medical history, surgical [...] needed. Assessment & Plan (06/14/2021 3:42 PM MALTED MILK MASHER): Second shingrix given today Advise mrna booster in 1-2 weeks after shingrix utd on flu shot, tdap Cont to work on diet and weight loss rtc 4 months Assessment & Plan (09/22/2019 3:17 PM MALTED MILK MASHER): Wear sunscreen while outdoors. Wear seatbelts while [...] 09/22/2019 Assessment & Plan (06/15/2024 11:14 AM MALTED MILK MASHER): Chronic, episodic, currently asymptomatic Will monitor for stability Encouraged to elevate legs when able and to wear compression socks or stockings Assessment & Plan (01/09/2023 5:33 AM CDT): Chronic, stasis-will continue to monitor for worsening symptoms or edema. Encouraged elevation of extremities when able and compression socks or stockings. Assessment & Plan (09/22/2019 3:52 PM MALTED MILK MASHER): Work on wt loss Get up and move around while at work ,periodically Wear compression stockings when travelling long distance History of basal cell carcinoma (BCC) of skin Overview (09/22/2019): r upper arm, Dr Davis Assessment & Plan (01/09/2023 5:28 AM CDT): Encouraged to follow-up with dermatology as recommended. Assessment & Plan (09/22/2019 3:53 PM MALTED MILK MASHER): Sunscreen Cont close surveillance with electric pile driver operator Non-seasonal allergic rhinitis 09/22/2018 Overview (09/22/2019): Allergic to dust and mold Assessment & Plan (06/15/2024 11:11 AM MALTED MILK MASHER): Chronic, stable, controlled with medication Continued on Clarinex Assessment & Plan (01/09/2023 5:32 AM CDT): Chronic, stable, controlled with medication-continued on Clarinex. Assessment & Plan (09/22/2019 3:36 PM MALTED MILK MASHER): Cont clarinex daily Mixed hyperlipidemia 09/23/2017 Assessment & Plan (06/15/2024 11:12 AM MALTED MILK MASHER): Chronic, uncontrolled, with minimally elevated triglycerides and low HDL Continued on atorvastatin Recommended low-fat/low-cholesterol diet, high in fiber and plant protein Assessment & Plan (07/10/2023 4:16 AM MALTED MILK MASHER): Chronic, uncontrolled, with minimally elevated triglycerides and [...] lipids. Assessment & Plan (06/27/2022 12:26 AM MALTED MILK MASHER): Chronic, stable, with slight elevation in triglycerides at last check-continued on simvastatin. Lipid panel ordered prior to next visit. Assessment & Plan (02/23/2022 10:53 AM CDT): c Assessment & Plan (06/14/2021 3:40 PM MALTED MILK MASHER): Suspect cholesterol will be much better, check now, dec dose if possible and recheck before our next appt in 4 months at which time I Hope to stop it Assessment & Plan (05/06/2020 3:16 PM CDT): Cont low chol diet and medication Cont to monitor liver panel Assessment & Plan (09/22/2019 3:38 PM MALTED MILK MASHER): Take the chol pill daily in am. Lipids in 6mos Essential (primary) hypertension 09/19/2017 Assessment & Plan (06/15/2024 11:11 AM MALTED MILK MASHER): Chronic, stable, controlled with medication Continued on bisoprolol Assessment & Plan (01/23/2024 12:30 PM CDT): Chronic, stable, controlled with medication Continued on bisoprolol Assessment & Plan (07/10/2023 4:15 AM MALTED MILK MASHER): Chronic, stable, controlled with medication Continued on bisoprolol Ordered CMP be done prior to next visit Assessment & Plan (01/09/2023 5:19 AM CDT): Chronic, stable, controlled with medication-reviewed recent CMP. Continued on bisoprolol. Assessment & Plan (06/27/2022 12:28 AM MALTED MILK MASHER): Chronic, stable, controlled with medication-continued bisoprolol. Ordered CMP to be done prior to next visit. Assessment & Plan (02/23/2022 10:52 AM CDT): Controlled on bisoprolol Assessment & Plan (06/14/2021 3:40 PM MALTED MILK MASHER): Looking great! With weight loss, d/c hctz [...] health Assessment & Plan (09/22/2019 3:36 PM MALTED MILK MASHER): Follow low sodium DASH Diet. Exercise regularly [...] 09/19/2017 Assessment & Plan (06/15/2024 11:13 AM MALTED MILK MASHER): Chronic, stable, controlled without medication Will monitor for stability Assessment & Plan (01/09/2023 5:32 AM CDT): Chronic, stable, controlled without medication-will continue to monitor for worsening symptoms,if occurs and is interested, can refer for pelvic floor physical therapy, consider medication, and/or refer to senior ios software engineer for further evaluation and management. Personal history of colon cancer, stage II 09/19 Overview (09/22/2019): no chemo/rx, just removal of the tumors and ff up areas tatood, age 38, 3 large polyps cancerous removed. Colonoscopy 05/2010, Dr Reynolds. Assessment & Plan (01/09/2023 5:26 AM CDT): Encouraged to get screening colonoscopy as recommended by teacher dramatics. Assessment & Plan (06/14/2021 3:41 PM MALTED MILK MASHER): Repeat is due 11/2022 Assessment & Plan (09/22/2019 3:35 PM MALTED MILK MASHER): Patient to check with Dr Reynolds as [...] 07/10/2023 Assessment & Plan (06/11/2023 10:35 AM MALTED MILK MASHER): VSS (low grade temp 99.5F), NAD, lungs CTAB Sx duration 2.5 weeks approximately Recent COVID 05/23/2023 Possible bronchitis . Ddx secondary bacterial PNA post COVID Medrol dose pack Augmentin, azithromycin Tessalon as needed as cough suppressant ER for CP, SOB, vomiting, dizziness, persisting fevers Colon polyps 10/10/2022 01/09/2023 Overview (10/10/2022): Added automatically from request for surgery [id number] Encounter to establish care 06/26/2022 01/09/2023 Assessment & Plan (06/27/2022 12:30 AM MALTED MILK MASHER): Reviewed past and current medical history, surgical [...] 01/09/2023 Assessment & Plan (06/27/2022 12:25 AM MALTED MILK MASHER): Chronic, present in 2019 and 2020, now resolved upon most recent check, likely improved with weight loss-will continue to monitor periodically. Encouraged continued weight loss. Assessment & Plan (01/05/2021 12:36 PM CDT): On statin Has had weight gain Liver us to further investigate Croup 09/22/2019 05/05/2020 Assessment & Plan (09/22/2019 3:51 PM MALTED MILK MASHER): Doxycycline 100mg po bid x 10d Coricidin HBP or guaifenesin DM ok to take for the cough Rest and hydrate Call if high fever, sob, worsening sx Encounters Date Type Department Care Team Description 10/21/2024 Telephone [facility] Primary Care at [address] [address] Elodia Brunson NP 10/20/2024 Telephone [facility] Primary Care at [address] [address] Elodia Brunson NP Recommendation Request 10/16/2024 Results Follow-Up [facility] Care at [address] [phone] Ann Larsen NP Urine culture Urine, clean voided 10/15/2024 9:31 PM CDT - 10/15/2024 11:59 PM CDT [place] [address] UTI symptoms Discharge Disposition: Discharge to home or self care 10/15/2024 4:30 PM CDT Office Visit [facility] Care at [address] [phone] Ann Larsen NP UTI symptoms (Primary Dx); Gross hematuria 10/15/2024 Telephone [facility] Care at [address] [phone] Ann Larsen NP Blood in Urine 10/15/2024 Nurse Triage [facility] Primary Care at [address] [phone] Susan Bradford RN from Last 3 [...] Added automatica lly from request for surgery [id number] Scalp lesion 03/09/2021 Transaminitis 01/05/2021 Left leg [...] on file Legal Sex Female 6:21 AM MALTED MILK MASHER Gender Identity Female 12/29/2020 6:34 AM CDT Sexual Orientation Straight 10/04/2020 6: 47 AM MALTED MILK MASHER Occupation Industry Job Start Date Job End [...] Read Routine (OP Routine) 07/27/2024 1:17 PM MALTED MILK MASHER Screening mammogram, encounter for COMPREHENSIVE METABOLIC PANEL [...] hyperlipidemia COLONOSCOPY 12/14/2022 8:07 AM CDT [employer]INPRE[employer] 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 PAP (IMAGE GUIDED) LIQUID-BASED PREP Routine 10/03/2017 3:52 PM MALTED MILK MASHER from Last 3 Months or Most Recently Relevant to Health Maintenance Results * Urine culture Urine, clean voided (10/15/2024 9:35 PM CDT) Report Final Report: Less than 100,000 colonies/mL (clinically insignificant growth based on current clinical standards) Organism (CLINICALLY INSIGNIFICANT GROWTH [facility] Urine, clean voided 10/15/2024 9:35 PM CDT 10/15/2024 9:47 PM CDT Narrative [facility] - 10/17/2024 8:33 AM CDT Testing performed by [facility] Microbiology Laboratory ([phone]) Ann Larsen NP LAB MICROBIOLOGY - GENERAL [place] Final Result [facility] Department [place] [address] * (ABNORMAL) POCT urinalysis dipstick (10/15/2024 4:40 PM CDT) Color, Urine, POC Dark Yellow Clarity, ur, POC Turbid(A) Clear Glucose, ur, POC Negative Negative MG/DL Bilirubin, ur, POC Small Negative, Small, Moderate, Large Ketones, ur, POC Negative Negative Specific [place], POC 1.030 1.003 - 1.030 Blood, ur, POC Large(A) Negative pH, ur, POC 5.5 5.0 - 8.0 Protein, ur, POC 300.(A) Negative Urobilinogen, urine, POC 0.2 0.2 - 1.0 mg/dL Nitrite, ur, POC Negative Negative Leukocytes, ur, POC Trace(A) Negative Lot Number [id number] Urine 10/15/2024 4:40 PM CDT Ann Larsen NP POINT OF CARE TEST ORDERABLES F inal Result * Screening Mammogram Bilateral [place] (07/27/2024 1:17 PM MALTED MILK MASHER) Anatomical Region Laterality Modality Breast Bilateral Mammography Impressions 07/27/2024 1:29 PM MALTED MILK MASHER BI-RADS ATLAS category (overall): 2 - Benign [...] next screening exam. Narrative 07/27/2024 1:29 PM MALTED MILK MASHER Screening Mammogram Bilateral [place]: 07/27/24 The [...] A1C 7.0(H) <5.7 % of total Hgb DwollaDa Sarmiento Comment: For someone without known diabetes, [...] NP LAB BLOOD ORDERABLES Final Resul t [facility] Organization Address City/State/ZIP Co de Phone Number [facility] [address] [place] [address] * (ABNORMAL) Lipid panel (05/23/2024 8:50 AM [...] LDL-C. Justus GANDHI et al. DANGELO. 2013;310(19): 3758-9091 (http://education.RTF Logic/faq/PYF114) Chol/HDL ratio 3.7 <5.0 (calc) [facility] [...] NP LAB BLOOD ORDERABLES Final Resul t [facility] [address] [place] [address] * (ABNORMAL) Comprehensive metabolic panel (05/23/2024 8:50 AM CDT) [facility] [address] Glucose 105(H) 65 - 99 mg/dL [facility] [...] BLOOD ORDERABLES Final Resul t [facility] [address] [place] [address] * COLONOSCOPY (12/14/2022 8:07 AM CDT) Anatomical Region Laterality Modality Other Narrative Procedure Note Lamin Reynolds MD - 12/14/2022 8:07 AM CDT [facility] Patient Name: Madhavi Goetz Procedure Date: 12/14/2022 8:07 AM Date of : 1965 Admit Type: Outpatient Age: 57 Gender: Female Attending MD: Lamin Reynolds M.D. Room: [facility] ENDOSCOPY ROOM 02 Note Status: Finalized [...] The scope was passed under direct vision.The [id number] was introduced through the anusand advanced to [...] On: 12/14/2022 8:07 AM Recognized by the [place] [employer] for promoting quality in endoscopy Lamin Reynolds MD ENDOSCOPY PROCEDURES Final Res ult * ThinPrep Gynecologic Pap Test (Image-guided), Liquid-based Preparation (10/03/2017 3:52 PM MALTED MILK MASHER) CLINICAL INFORMATION [facility] HISTORICAL RESULTS Comment:Hysterectomy LMP: HYST [facility] HISTORICAL RESULTS PREV. PAP: [facility] HISTORICAL RESULTS Comment:Information not prov ided PREV. BX: [facility] HISTORICAL RESULTS Comment:Information not prov ided SOURCE: [facility] HISTORICAL RESULTS Comment:Vaginal cuff STATEMENT OF ADEQUACY: [facility] HISTORICAL RESULTS Comment:SATISFACTORY FOR PEACE LUATION INTERPRETATION/RESU LT: [facility] HISTORICAL RESULTS Comment:Negative for intraep ithelial lesion or malignancy. COMMENT: [facility] HISTORICAL RESULTS Comment:This Pap test has be en evaluated with computer assisted technology. ORACLE APEX DEVELOPER: [facility] HISTORICAL RESULTS Comment:LMT, CT(ASCP) CT scr eening location: [place] [address] [place] [address] 10/03/2017 3:52 PM MALTED MILK MASHER 10/12/2017 12:10 AM MALTED MILK MASHER Narrative [facility]IST[facility] RES[facility] - 10/11/2017 11:44 PM MALTED MILK MASHER 0 PERFORMING LAB: , [facility] [address] [facility] [address] Abigail Baker MD us Marcia Resendiz MD LAB PATHOLOGY ORDERABLES Fin al Result [facility] HISTORICAL RESULTS from Last 3 Months or Most Recently Relevant to Health Maintenance Insurance [employer] OOS CIGNA IBEW CIGNA IBEW BLUE ACCESS OOS CIGNA IBEW BLUE ACCESS OOS Advance Directives For more information, please contact: [phone] * Full Code (Latest Code Status on File) Date Activated Date Inactivated Comments 12/14/2022 8:07 AM 12/14/2022 1:15 PM Care Teams Water Resources Project Manager Relationship Specialty Start Date End Date Elodia Brunson NP [address] [place] [id number] PCP - General Family Practice 06/22/22
--- OUTSIDE RECORDS SUMMARY | 2024-12-23 01:01 | XMS_ITS | Clinical Summary ---
Author Organization [facility] Address [address] [place] [address] Care Team Providers Care Manager Multicultural Name Role Phone Unavailable Primary Care Provider Unavailabl e Source Comments [facility],non-owned Affiliates and Associated Physician Practices is amultiple site organization consisting of ambulatory clinics and hospital sitesin [place], [place], [place] and [place]. This disclosure is being madepursuant to the Care Everywhere program and may not contain all information available regarding this patient. Last updated 18.[facility] [employer] Social History Tobacco Use Types Packs/Day Years [...] Goetz Payer ID:[id number] (NAIC) Type:O Address: [address] ANTHE[place] Member Subscriber Plan / Payer (Ef fective 2013-Present) Name:Michelle Goetz Relation to Subscriber:Self Name:Michelle Goetz Payer ID:[id number] (NAIC) Type:PPO Address: [facility] [id number] [place] [id number]
--- OUTSIDE RECORDS SUMMARY | 2024-12-23 01:01 | XMS_ITS | Encounter Summary ---
Author Organization [facility] Address [address] [place] [address] Care Team Providers Care Cable Tester Name Role Phone Unavailable Primary Care Provider Unavailabl e Encounter Details Date Type Department Care Team (Late st Contact Info) Description 01/06/2024 Lab Requisition [facility] - DermPath Lab [address] [facility], [facility] [place] [address] Lupe Davis DO [address] [facility] [address] [place] [address] Social History Tobacco Use Types Packs/Day Years [...] PM CDT) Case Report Dermatopathology Report Case: [id number] Authorizing Provider: Lupe Davis DO Collected: 01/06/2024 02:32 PM Ordering Location: [facility] - Received: 01/07/2024 01:01 PM [...] medial lower extremity: BENIGN VERRUCOUS KERATOSIS (L82.1) 4 2:50 PM CDT DERMATOPATHOLOGY LABORATORY at 1450 CDT Clinical History A-C: r/o NMSC 4 2:50 PM CDT DERMATOPATHOLOGY LABORATORY Gross Description Specimen [...] shave biopsy measuring 8x5x2 mm. Jar 0. 4 2:50 PM CDT DERMATOPATHOLOGY LABORATORY Microscopic Description Specimen [...] a verruca vulgaris or a seborrheic keratosis. 4 2:50 PM CDT DERMATOPATHOLOGY LABORATORY Disclaimer An external and internal positive and negative controls are appropriate for the histochemical, immunohistochemical and immunofluorescence stain(s) in this case (if any), except where stated explicitly. The performance characteristics of the stain(s) cited in this report were developed and its performance characteristic determined by the Dermatopathology Laboratory at [facility], directed by Dr. Verónica Mendoza. These tests need not be, and therefore are not, approved by the [place] Food and Drug Administration. The tests are used for clinical purposes. Billing Codes Specimen Charges Stain Charges 13347 37898 97996 1 1 1 4 2:50 PM CDT [...] - PATHOLOGY/CYTOLOGY ORDERABLES Final Result DERMATOPATHOLOGY LABORATORY [facility] - Department of Dermatology [facility] Specialized Medicine [address] [place] [address], [address] [phone] documented in this encounter Visit Diagnoses Not on filedocumented in this encounter
--- OUTSIDE RECORDS SUMMARY | 2024-12-23 01:01 | XMS_ITS | Encounter Summary ---
Author Organization [facility] Address [address] [facility] [place] [address] Care Team Providers Care Launderette Attendant Name Role Phone Unavailable Primary Care Provider Unavailabl e Encounter Details Date Type Department Care Team (Late st Contact Info) Description 07/23/2019 Lab Requisition [facility] DermPath Lab [address] [facility], [facility] [place] [address] Lupe Davis DO [address] [facility] [address] [place] [address] Social History Tobacco Use Types Packs/Day Years [...] Comments DERMATOPATHOLOGY Routine 07/22/2019 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 SKIN, right upper arm: DERMAL SCAR RESIDUAL BASAL CELL CARCINOMA NOT IDENTIFIED (L90.5) 9 1:54 PM OIL TRUCK DRIVER DERMATOPATHOLOGY LABORATORY at 1354 OIL TRUCK DRIVER Clinical History R/O BCC, superficial multifocal type. Bx proven [id number]. 1:54 PM [facility] DERMATOPATHOLOGY LABORATORY Gross Description Specimen A: Received is one formalin filled container labeled with the patient's name and designated right upper arm. The specimen consists of an ellipse measuring [id number] and is oriented with the notch at [...] in cassettes 3-4. Jar 0. 1:54 PM [facility] DERMATOPATHOLOGY LABORATORY Microscopic Description Specimen A. SKIN, right upper arm: There are fibroblasts and collagen bundles oriented parallel to the skin surface. There are elongated blood vessels, some of which are oriented perpendicular to the skin surface. No basal cell carcinoma is identified. 1:54 PM [facility] DERMATOPATHOLOGY LABORATORY Disclaimer An external and [...] purposes. Billing Codes Specimen Charges Stain Charges 91105 1 9 1:54 PM [facility] DERMATOPATHOLOGY LABORATORY Embedded Images 1:54 PM [facility] DERMATOPATHOLOGY LABORATORY Pathology/Cytolog y TISSUE SPECIMEN FROM SKIN / Unknown 07/22/2019 07/23/2019 8:39 AM [facility] us Lupe Davis DO LAB - PATHOLOGY/CYTOLOGY ORDERABLES Final Result DERMATOPATHOLOGY LABORATORY [facility] - Department of Dermatology [address], 5th [place] [address], [facility] [phone] documented in this encounter Visit Diagnoses Not on filedocumented in this encounter
--- OUTSIDE RECORDS SUMMARY | 2024-12-23 01:01 | XMS_ITS | Clinical Summary ---
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
--- OUTSIDE RECORDS SUMMARY | 2024-12-23 01:01 | XMS_ITS | Encounter Summary ---
Author Organization [facility] Care Team Providers Care Therapy Tech Name Role Phone Matilde Vizcaino MD Primary Care Provider [phone] Meme Velazquez MD Primary Care Provider [phone] Christine Daugherty NP Primary Care Provider + [phone] Elodia Brunson CRYSTAL FINISHER Primary Care Provider [phone] Unknown, Notinfile Primary Care Provider Unavail able Elodia Brunson CRYSTAL FINISHER Primary Care Provider [phone] Encounter Details Date Type Department Care Team (Latest Contact Info) Description 09/13/2016 Orders Only [facility]INCONV Provider, MD Shabbir [address] [place] [id number] Social History Tobacco Use Types Packs/Day Years Used Date Smoking Tobacco: Never Assessed Comments Unknown Sex and Gender Information Value Date Recorded Sex Assigned at Not on file Legal Sex Female 6:21 AM MASTER DATA ANALYST Gender Identity Female 12/29/2020 6:34 AM CDT Sexual Orientation Straight 10/04/2020 6: 47 AM MASTER DATA ANALYST documented as of this encounter Plan of Treatment Not on file documented as of this encounter Procedures Procedure Name Priority Date/Time Associated Diagnosis Comments COLONOSCOPY - SCAN 09/13/2016 12 :00 AM MASTER DATA ANALYST documented in this encounter Results * COLONOSCOPY - SCAN (09/13/2016 12:00 AM MASTER DATA ANALYST) Narrative 09/13/2016 12:00 AM MASTER DATA ANALYST Ordered by an unspecified provider. us Historical Provider Final Res ult documented in this encounter Visit Diagnoses Not on filedocumented in this encounter Care Teams Therapy Tech Relationship Specialty Start Date End Date Matilde Vizcaino MD [address] [place] [address] [id number] PCP - General 11/13/17 01/05/21 Meme Velazquez MD [address] [place] [address] [id number] PCP - General Internal Medicine 01/06/21 04/18/22 Christine Daugherty NP [address] [place] [address] [id number] PCP - General Internal Medicine 04/19/22 04/26/22 Elodia Brunson NP [address] [place] [id number] PCP - General Family Practice 04/30/22 05/06/22 Unknown, Notinfile PCP - General 06/14/22 06/21/22 Elodia Brunson CRYSTAL FINISHER [address] [place] [id number] PCP - General Family Practice 06/22/22 documented as of this encounter
--- OUTSIDE RECORDS SUMMARY | 2024-12-23 01:01 | XMS_ITS | Continuity of Care Document ---
Author Organization [employer] [place] Address [address] [place] [address] [address] [place] [address] Phone Care Team Providers Care Photo Cartographer Name Role Phone Hank PT, MANAST, Jon Unavailable Aggie vailable Procedures Procedure Date Therapeutic Exercise Therapeutic Activities Neuromuscular Re-Ed Manual Therapy Hot or Cold Pack Electrical Stimulation Therapeutic Exercise Therapeutic Activities Neuromuscular Re-Ed Manual Therapy Hot or Cold Pack Electrical Stimulation Therapeutic Exercise Therapeutic Activities Neuromuscular Re-Ed Manual Therapy Hot or Cold Pack Electrical Stimulation Therapeutic Exercise Therapeutic Activities Neuromuscular Re-Ed Manual Therapy Hot or Cold Pack Electrical Stimulation Therapeutic Exercise Therapeutic Activities Neuromuscular Re-Ed Manual Therapy Hot or Cold Pack Electrical Stimulation Therapeutic Exercise Therapeutic Activities Neuromuscular Re-Ed Manual Therapy Hot or Cold Pack Electrical Stimulation Therapeutic Exercise Therapeutic Activities Neuromuscular Re-Ed Manual Therapy Hot or Cold Pack Electrical Stimulation Therapeutic Exercise Therapeutic Activities Neuromuscular Re-Ed Manual Therapy Hot or Cold Pack Electrical Stimulation PT Evaluation Low Complexity Therapeutic Exercise Manual Therapy Hot or Cold Pack Advance Directives Directive Yes / No Effective Date File Name No Information Encounters Encounter Description Practice Location Reason(s) For Visit Diagnoses Date Provider Providers Copied on Encounter [facility] [employer], [id number], tel:[phone] [place] Pain in right ankle and joints of right footMuscle weakness (generalized )Stiffness of right ankle, not elsewhere classifiedMy algiaEffusio n, right ankleSprain of unspecified ligament of right ankle, subs encntr 8 Hank Webb. [address] [facility], [place] [address], . tel:[phone] 7206 [facility], [place], [place], [id number], tel:[phone] [place] Pain in right ankle and joints of right footMuscle weakness (generalized )Stiffness of right ankle, not elsewhere classifiedMy algiaEffusio n, right ankleSprain of unspecified ligament of right ankle, subs encntr 8 Hank Webb. [address] [facility], [address], [facility], . tel:[phone] [facility], [place], [place], [id number], [place] tel:[phone] [place] Pain in right ankle and joints of right footMuscle weakness (generalized )Stiffness of right ankle, not elsewhere classifiedMy algiaEffusio n, right ankleSprain of unspecified ligament of right ankle, subs encntr 0 [phone] 8 Hank Jon. [address] [place] [address], [address], [place], [place], [facility], . tel:[phone] [place], [place] [id number] [address], [place], [place], [id number], tel:[phone] [place] Pain in right ankle and joints of right footMuscle weakness (generalized )Stiffness of right ankle, not elsewhere classifiedMy algiaEffusio n, right ankleSprain of unspecified ligament of right ankle, subs encntr 0 7 8 Melodie Kennedy. . [facility], [place], [place], [id number], tel:[phone] [place] Pain in right ankle and joints of right footMuscle weakness (generalized )Stiffness of right ankle, not elsewhere classifiedMy algiaEffusio n, right ankleSprain of unspecified ligament of right ankle, subs encntr 0 2 8 Rodriguez Martha. [address] [place] [address], [address], [place], [place], [facility], . tel:[phone] [place], [place] [id number] [address], [place], [place], [id number], [place] tel:[phone] [place] Pain in right ankle and joints of right footMuscle weakness (generalized )Stiffness of right ankle, not elsewhere classifiedMy algiaEffusio n, right ankleSprain of unspecified ligament of right ankle, subs encntr 3 1 8 Michael Thomas. [address] [place] [address], [address], [place], [address], . tel:[phone] [place], [place] [id number] [address], [place], [place], [id number], [place] tel:[phone] [place] Pain in right ankle and joints of right footMuscle weakness (generalized )Stiffness of right ankle, not elsewhere classifiedMy algiaEffusio n, right ankleSprain of unspecified ligament of right ankle, subs encntr 8 Michael Thomas. [address] [facility], [address], [place], [facility], . tel:[phone] [facility] [place] [address], [place], [place], [id number], tel:[phone] [place] Pain in right ankle and joints of right footMuscle weakness (generalized )Stiffness of right ankle, not elsewhere classifiedMy algiaEffusio n, right ankleSprain of unspecified ligament of right ankle, subs encntr 8 Michael Thomas. [address] [facility], [facility] [address], [place], [facility], . tel:[phone] [facility] [address] [place] [address], [place], [place], [id number], tel:[phone] [place] Pain in right ankle and joints of right footMuscle weakness (generalized )Stiffness of right ankle, not elsewhere classifiedMy algiaEffusio n, right ankleSprain of unspecified ligament of right ankle, subs encntr 8 Hank Webb. [address] [facility], [facility] [address], [place], [facility], . tel:[phone] Family History Family Member Type Diagnosis Age At Onset No Information Payers Payer name Insurance type Covered libertarian ID Authorpaytona viki(s) RUST [id number] [facility] [id number] Social History Type Description Quantity Date Captured Comments Sex Female Smoking Status No Information Chief Complaint And Reason For Visit No Information Reason For Referral Reason For Referral No Information History Of Present Illness Encounter Date Complaint History Of Prese nt Illness No Information Functional Status Date Functional Assessmen t No Information Instructions Date Instruction Additional Infor mation No Information Assessments Type Assessment Date No Information Patient Care Teams Name Effective Dates (start - stop) Status Members No Information
--- OUTSIDE RECORDS SUMMARY | 2024-12-23 01:01 | XMS_ITS | Referral Summary ---
Author Organization [facility] at the [facility] Office Center Address [address] [place] [address] Care Team Providers Care Vat Skimmer Name Role Phone Elodia Brunson NP Primary Care Provider [phone] Encounters Date Type Department Care Team Description 10/21/2024 Telephone [facility] Primary Care at [address] [address] Elodia Brunson NP 10/20/2024 Telephone [facility] Primary Care at [address] [address] Elodia Brunson NP Recommendation Request 10/16/2024 Results Follow-Up [facility] at [address] [phone] Ann Larsen NP Urine culture Urine, clean voided 10/15/2024 9:31 PM CDT - 10/15/2024 11:59 PM [place] [address] UTI symptoms Discharge Disposition: Discharge to home or self care 10/15/2024 Telephone [facility] at [address] [phone] Ann Larsen NP Blood in Urine 10/15/2024 4:30 PM CDT Office Visit [facility] at [place] [address] [place] [phone] Ann Larsen NP UTI symptoms (Primary Dx); Gross hematuria 10/15/2024 Nurse Triage [facility] Primary Care at [place] [address] [place] [phone] Susan Bradford RN from Last 3 Months [...] 06/16/2024 Assessment & Plan (06/16/2024 7:40 AM STEEL SASH ERECTOR): Diabetic foot exam performed with monofilament, no abnormal findings Class 3 severe obesity due t o excess calories with body mass index (BMI) of 45.0 to 49.9 in adult 06/15/2024 Assessment & Plan (06/15/2024 11:19 AM STEEL SASH ERECTOR): Chronic, stable Encouraged to: Make healthy food choices, limiting intake of concentrated sweets, cholesterol, and saturated fat Monitor daily caloric intake and portion sizes Exercise most days of the week for a goal of at least 150 minutes of exercise per week Encounter for screening mamm ogram for malignant neoplasm of breast 07/10/2023 Elevated ALT measurement 07/10/2023 Assessment & Plan (06/15/2024 11:19 AM STEEL SASH ERECTOR): Chronic, stable Encouraged continued weight loss and a low-fat, low-cholesterol diet Will monitor for stability Assessment & Plan (07/10/2023 4:15 AM STEEL SASH ERECTOR): Chronic, recurrent, normal at last check Reviewed lab results dated 07/05/2023 Encouraged continued weight loss, low-fat, low-cholesterol diet Ordered CMP to be done prior to next visit Vitamin D deficiency 01/09/2023 Assessment & Plan (06/15/2024 11:17 AM STEEL SASH ERECTOR): Chronic, stable, not controlled Recommended vitamin D3 5000 IU daily with a meal Will monitor for stability Assessment & Plan (07/10/2023 4:18 AM STEEL SASH ERECTOR): Chronic, improved Reviewed labs dated 07/05/2023 Recommended [...] 01/09/2023 Assessment & Plan (06/15/2024 11:18 AM STEEL SASH ERECTOR): Chronicity unknown, normal at most recent check Will monitor for stability Assessment & Plan (07/10/2023 4:15 AM STEEL SASH ERECTOR): New diagnosis, normal at most recent check [...] (10/10/2022): Added automatically from request for surgery [id number] Assessment & Plan (01/09/2023 5:21 AM CDT): Encouraged to get screening colonoscopies as recommended by net developer. Encounter for vitamin deficiency screening 06/26 Assessment & Plan (06/27/2022 12:30 AM STEEL SASH ERECTOR): Ordered vitamin-D 25 [place]. Screening for deficiency anemia 06/26/2022 Assessment & Plan (06/27/2022 12:25 AM STEEL SASH ERECTOR): Ordered CBC. 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 Assessment & Plan (06/27/2022 12:25 AM STEEL SASH ERECTOR): Chronic, stable, controlled with medication-continued on Valtrex as directed as needed, refills sent to pharmacy per request. Need for vaccination 06/26/2022 Assessment & Plan (06/27/2022 12:27 AM STEEL SASH ERECTOR): Influenza vaccine given. Chronic pain of both knees 10/18/2021 Assessment & Plan (06/15/2024 11:17 AM STEEL SASH ERECTOR): Chronic, stable Continued on meloxicam Can refer [...] 03/09/2021 Assessment & Plan (06/15/2024 11:16 AM STEEL SASH ERECTOR): Chronic, uncontrolled/worsened, not on medication Discussed options for treatment, is considering Encouraged weight loss efforts Assessment & Plan (07/10/2023 4:17 AM STEEL SASH ERECTOR): Chronic, stable Reviewed most recent hemoglobin A1c dated 12/17/2022 Encouraged continued weight loss Ordered CMP and hemoglobin A1c to be done prior to next Assessment & Plan (01/09/2023 5:27 AM CDT): Chronic, stable-encouraged weight loss efforts. Reviewed recent CMP and hemoglobin A1c at visit today. Assessment & Plan (06/27/2022 12:29 AM STEEL SASH ERECTOR): Chronic, improved with weight loss-ordered hemoglobin A1c and CMP to be done prior to next visit. Encouraged efforts at continued weight loss. Assessment & Plan (06/14/2021 3:42 PM STEEL SASH ERECTOR): ha1c is 5.8 today- cont debra Assessment & Plan (03/09/2021 8:39 AM CDT): ha1c has decreased from 6.4>5.9- this is a tremendous improvement! Cont debra. Annual physical exam 09/22/2019 Assessment & Plan (06/15/2024 11:13 AM STEEL SASH ERECTOR): Reviewed past and current medical history, surgical [...] needed. Assessment & Plan (06/14/2021 3:42 PM STEEL SASH ERECTOR): Second shingrix given today Advise mrna booster in 1-2 weeks after shingrix utd on flu shot, tdap Cont to work on diet and weight loss rtc 4 months Assessment & Plan (09/22/2019 3:17 PM STEEL SASH ERECTOR): Wear sunscreen while outdoors. Wear seatbelts while [...] 09/22/2019 Assessment & Plan (06/15/2024 11:14 AM STEEL SASH ERECTOR): Chronic, episodic, currently asymptomatic Will monitor for stability Encouraged to elevate legs when able and to wear compression socks or stockings Assessment & Plan (01/09/2023 5:33 AM CDT): Chronic, stasis-will continue to monitor for worsening symptoms or edema. Encouraged elevation of extremities when able and compression socks or stockings. Assessment & Plan (09/22/2019 3:52 PM STEEL SASH ERECTOR): Work on wt loss Get up and move around while at work ,periodically Wear compression stockings when travelling long distance History of basal cell carcinoma (BCC) of skin Overview (09/22/2019): r upper arm, Dr Davis Assessment & Plan (01/09/2023 5:28 AM CDT): Encouraged to follow-up with dermatology as recommended. 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 Assessment & Plan (09/22/2019 3:36 PM STEEL SASH ERECTOR): Cont clarinex daily Mixed hyperlipidemia 09/23/2017 Assessment & Plan (06/15/2024 11:12 AM STEEL SASH ERECTOR): Chronic, uncontrolled, with minimally elevated triglycerides and low HDL Continued on atorvastatin Recommended low-fat/low-cholesterol diet, high in fiber and plant protein Assessment & Plan (07/10/2023 4:16 AM STEEL SASH ERECTOR): Chronic, uncontrolled, with minimally elevated triglycerides and [...] lipids. Assessment & Plan (06/27/2022 12:26 AM STEEL SASH ERECTOR): Chronic, stable, with slight elevation in triglycerides at last check-continued on simvastatin. Lipid panel ordered prior to next visit. Assessment & Plan (02/23/2022 10:53 AM CDT): c Assessment & Plan (06/14/2021 3:40 PM STEEL SASH ERECTOR): Suspect cholesterol will be much better, check now, dec dose if possible and recheck before our next appt in 4 months at which time I Hope to stop it Assessment & Plan (05/06/2020 3:16 PM CDT): Cont low chol diet and medication Cont to monitor liver panel Assessment & Plan (09/22/2019 3:38 PM STEEL SASH ERECTOR): Take the chol pill daily in am. Lipids in 6mos Essential (primary) hypertension 09/19/2017 Assessment & Plan (06/15/2024 11:11 AM STEEL SASH ERECTOR): Chronic, stable, controlled with medication Continued on bisoprolol Assessment & Plan (01/23/2024 12:30 PM CDT): Chronic, stable, controlled with medication Continued on bisoprolol Assessment & Plan (07/10/2023 4:15 AM STEEL SASH ERECTOR): Chronic, stable, controlled with medication Continued on bisoprolol Ordered CMP be done prior to next visit Assessment & Plan (01/09/2023 5:19 AM CDT): Chronic, stable, controlled with medication-reviewed recent CMP. Continued on bisoprolol. Assessment & Plan (06/27/2022 12:28 AM STEEL SASH ERECTOR): Chronic, stable, controlled with medication-continued bisoprolol. Ordered CMP to be done prior to next visit. Assessment & Plan (02/23/2022 10:52 AM CDT): Controlled on bisoprolol Assessment & Plan (06/14/2021 3:40 PM STEEL SASH ERECTOR): Looking great! With weight loss, d/c hctz [...] health Assessment & Plan (09/22/2019 3:36 PM STEEL SASH ERECTOR): Follow low sodium DASH Diet. Exercise regularly [...] 09/19/2017 Assessment & Plan (06/15/2024 11:13 AM STEEL SASH ERECTOR): Chronic, stable, controlled without medication Will monitor for stability Assessment & Plan (01/09/2023 5:32 AM CDT): Chronic, stable, controlled without medication-will continue to monitor for worsening symptoms,if occurs and is interested, can refer for pelvic floor physical therapy, consider medication, and/or refer to production hand for further evaluation and management. Personal history of colon cancer, stage II 09/19 Overview (09/22/2019): no chemo/rx, just removal of the tumors and ff up areas carly, age 38, 3 large polyps cancerous removed. Colonoscopy 05/2010, Dr Reynolds. Assessment & Plan (01/09/2023 5:26 AM CDT): Encouraged to get screening colonoscopy as recommended by net developer. Assessment & Plan (06/14/2021 3:41 PM STEEL SASH ERECTOR): Repeat is due 11/2022 Assessment & Plan (09/22/2019 3:35 PM STEEL SASH ERECTOR): Patient to check with Dr Reynolds as [...] 07/10/2023 Assessment & Plan (06/11/2023 10:35 AM STEEL SASH ERECTOR): VSS (low grade temp 99.5F), NAD, lungs CTAB Sx duration 2.5 weeks approximately Recent COVID 05/23/2023 Possible bronchitis . Ddx secondary bacterial PNA post COVID Medrol dose pack Augmentin, azithromycin Tessalon as needed as cough suppressant ER for CP, SOB, vomiting, dizziness, persisting fevers Colon polyps 10/10/2022 01/09/2023 Overview (10/10/2022): Added automatically from request for surgery [id number] Encounter to establish care 06/26/2022 01/09/2023 Assessment & Plan (06/27/2022 12:30 AM STEEL SASH ERECTOR): Reviewed past and current medical history, surgical [...] 01/09/2023 Assessment & Plan (06/27/2022 12:25 AM STEEL SASH ERECTOR): Chronic, present in 2019 and 2020, now resolved upon most recent check, likely improved with weight loss-will continue to monitor periodically. Encouraged continued weight loss. Assessment & Plan (01/05/2021 12:36 PM CDT): On statin Has had weight gain Liver us to further investigate Croup 09/22/2019 05/05/2020 Assessment & Plan (09/22/2019 3:51 PM STEEL SASH ERECTOR): Doxycycline 100mg po bid x 10d Coricidin [...] on file Legal Sex Female 6:21 AM STEEL SASH ERECTOR Gender Identity Female 12/29/2020 6:34 AM CDT Sexual Orientation Straight 10/04/2020 6: 47 AM STEEL SASH ERECTOR Occupation Industry Job Start Date Job End [...] Read Routine (OP Routine) 07/27/2024 1:17 PM STEEL SASH ERECTOR Screening mammogram, encounter for COMPREHENSIVE METABOLIC PANEL [...] hyperlipidemia COLONOSCOPY 12/14/2022 8:07 AM CDT THINPREP CRANE OILER PAP (IMAGE GUIDED) LIQUID-BASED PREP Routine 10/03/2017 3:52 PM STEEL SASH ERECTOR from Last 3 Months or Most Recently Relevant to Health Maintenance Results * Urine culture Urine, clean voided (10/15/2024 9:35 PM CDT) Report Final Report: Less than 100,000 colonies/mL (clinically insignificant growth based on current clinical standards) Organism (CLINICALLY INSIGNIFICANT GROWTH [facility] Urine, clean voided 10/15/2024 9:35 PM CDT 10/15/2024 9:47 PM CDT Narrative SINGH JACKSON - 10/17/2024 8:33 AM CDT Testing performed by [facility] ([phone]) Ann Larsen NP LAB MICROBIOLOGY - [facility] Final Result [facility] Department [place] [address] * (ABNORMAL) POCT urinalysis dipstick (10/15/2024 4:40 PM CDT) Color, Urine, POC Dark Yellow Clarity, ur, POC Turbid(A) Clear Glucose, ur, POC Negative Negative MG/DL Bilirubin, ur, POC Small Negative, Small, Moderate, Large Ketones, ur, POC Negative Negative Specific [place], POC 1.030 1.003 - 1.030 Blood, ur, POC Large(A) Negative pH, ur, POC 5.5 5.0 - 8.0 Protein, ur, POC 300.(A) Negative Urobilinogen, urine, POC 0.2 0.2 - 1.0 mg/dL Nitrite, ur, POC Negative Negative Leukocytes, ur, POC Trace(A) Negative Lot Number [id number] Urine 10/15/2024 4:40 PM CDT Ann Larsen NP POINT OF CARE TEST ORDERABLES F inal Result * Screening Mammogram Bilateral W Imchoacano (07/27/2024 1:17 PM STEEL SASH ERECTOR) Anatomical Region Laterality Modality Breast Bilateral Mammography Impressions 07/27/2024 1:29 PM STEEL SASH ERECTOR BI-RADS ATLAS category (overall): 2 - Benign There is no mammographic evidence of malignancy. A 1 year screening mammogram is recommended. The patient has been or will be contacted. We recommend annual screening mammography for women at average risk of breast cancer beginning at age 40, based on guidelines of the [employer] (ACR Practice Parameter for the Performance of Screening and Diagnostic Mammography) and [employer]. For women with and elevated risk of breast cancer, please refer to the ACR Practice Parameter for specific screening recommendations. The patient will be entered into a reminder system with a target due date of 1 year for her next screening exam. Narrative 07/27/2024 1:29 PM STEEL SASH ERECTOR Screening Mammogram Bilateral W Michoacano: 07/27/24 The [...] A1C 7.0(H) <5.7 % of total Hgb [employer] Comment: For someone without known diabetes, [...] NP LAB BLOOD ORDERABLES Final Resul t [facility] [address] [place] [address] * (ABNORMAL) Lipid panel (05/23/2024 8:50 AM CDT) Pathologist [facility] Cholesterol 171 <200 mg/dL [facility] [...] factors. LDL-C is now calculated using the Justus-Koroma calculation, which is a validated novel method providing better accuracy than the Friedewald equation in the estimation of LDL-C. Justus GANDHI et al. DANGELO. 2013;310(19): 0247-1811 (http://education.Breather.Curiosidy/faq/DQO403) Chol/HDL ratio 3.7 <5.0 (calc) [facility] [...] BLOOD ORDERABLES Final Resul t [facility] [address] [address] * (ABNORMAL) Comprehensive metabolic panel (05/23/2024 8:50 [...] CDT FASTING:YES FASTING: YES us Elodia Brunson FEEDER ASSOCIATE LAB BLOOD ORDERABLES Final Resul t ANTONIO [facility] [address] [place] [address] * COLONOSCOPY (12/14/2022 8:07 AM CDT) Anatomical Region Laterality Modality Other Narrative Procedure Note Lamin Reynolds MD - 12/14/2022 8:07 AM CDT [facility] Patient Name: Michelle Goetz Procedure Date: 12/14/2022 8:07 AM Date of : 1965 Admit Type: Outpatient Age: 57 Gender: Female Attending MD: Lamin Reynolds M.D. Room: [facility] 02 Note Status: Finalized Procedure: [...] The scope was passed under direct vision.The [id number] was introduced through the anusand advanced to [...] On: 12/14/2022 8:07 AM Recognized by the [employer] for promoting quality in endoscopy us Lamin Reynolds MD ENDOSCOPY PROCEDURES Final Res ult * ThinPrep Gynecologic Pap Test (Image-guided), Liquid-based Preparation (10/03/2017 3:52 PM STEEL SASH ERECTOR) CLINICAL INFORMATION [facility]ICAL RES[facility] Comment:Hysterectomy LMP: HYST [facility] HISTORICAL RESULTS PREV. PAP: [facility] HISTORICAL RESULTS Comment:Information not prov ided PREV. BX: [facility] HISTORICAL RESULTS Comment:Information not prov ided SOURCE: [facility] HISTORICAL RESULTS Comment:Vaginal cuff STATEMENT OF ADEQUACY: [facility] HISTORICAL RESULTS Comment:SATISFACTORY FOR PEACE LUATION INTERPRETATION/RESU LT: [facility] Comment:Negative for intraep ithelial lesion or malignancy. COMMENT: [facility] Comment:This Pap test has be en evaluated with computer assisted technology. INFORMATION AND DATA ARCHITECT ANALYST: [facility] HISTORICAL RESULTS Comment:LMT, CT(ASCP) CT scr eening location: [place] [address] [place] [address] 10/03/2017 3:52 PM STEEL SASH ERECTOR 10/12/2017 12:10 AM STEEL SASH ERECTOR Narrative [facility] HISTORICAL RESULTS - 10/11/2017 11:44 PM STEEL SASH ERECTOR 0 PERFORMING LAB: [facility] [place], [place] [address] [place] [address] Abigail Baker MD us aMrcia Resendiz MD LAB PATHOLOGY ORDERABLES Fin al Result [facility] HISTORICAL RESULTS from Last 3 Months or Most Recently Relevant to Health Maintenance Insurance ZAOZAO OOS CIGNA IBEW CIGNA IBEW BLUE ACCESS OOS CIGNA IBEW ZAOZAO OOS Advance Directives For more information, please contact: [phone] * Full Code (Latest Code Status on File) Date Activated Date Inactivated Comments 12/14/2022 8:07 AM 12/14/2022 1:15 PM Care Teams Vat Skimmer Relationship Specialty Start Date End Date Elodia Brunson NP [address] [place] [address] PCP - General Family Practice 06/22/22
--- OUTSIDE RECORDS SUMMARY | 2024-12-23 01:01 | XMS_ITS | Encounter Summary ---
Author Organization [facility] Address [address] [place] [address] Care Team Providers Care Terrazzo Laborer Name Role Phone Unavailable Primary Care Provider Unavailabl e Encounter Details Date Type Department Care Team (Late st Contact Info) Description 01/25/2020 Lab Requisition [facility] [address] [facility], [facility] [place] [address] Lupe Davis DO [address] [facility] [address] [place] [address] Social History Tobacco Use Types Packs/Day Years [...] AM CDT) Case Report Dermatopathology Report Case: [id number] Authorizing Provider: Lupe Davis DO Collected: 01/21/2020 12:00 AM Ordering Location: [facility] Received: 01/25/2020 12:04 PM Pathologist: Daysi Loving MD Specimen: Skin, right upper arm 0 4:32 PM CDT DERMATOPATHOLOGY LABORATORY Final Diagnosis Specimen A. SKIN, right upper arm: COMEDONE (L70.8) HEALING SKIN CHANGES (L90.5) (see microscopic description) 0 4:32 PM CDT DERMATOPATHOLOGY LABORATORY at 1631 CDT Clinical History Folliculitis vs PN R/O NMSC bleeding. 0 4:32 PM CDT DERMATOPATHOLOGY LABORATORY Gross Description Specimen A: Received is one formalin filled container labeled with the patient's name and designated right upper arm. The specimen consists of a shave measuring [id number]. Jar 0. 0 4:32 PM CDT DERMATOPATHOLOGY [...] purposes. Billing Codes Specimen Charges Stain Charges 54561 1 0 4:32 PM CDT DERMATOPATHOLOGY LABORATORY Embedded Images 0 4:32 PM CDT DERMATOPATHOLOGY LABORATORY Pathology/Cytolog y TISSUE SPECIMEN FROM SKIN / Unknown 01/21/2020 01/25/2020 12:04 PM CDT us Lupe Davis DO LAB - PATHOLOGY/CYTOLOGY ORDERABLES Final Result DERMATOPATHOLOGY LABORATORY [facility] - Department of Dermatology Clothing Examiner [place] [address], [facility] [phone] documented in this encounter Visit Diagnoses Not on filedocumented in this encounter
--- OUTSIDE RECORDS SUMMARY | 2024-12-23 01:01 | XMS_ITS | Continuity of Care Document ---
Author Organization [facility] Address [address] [place] [address] Phone Care Team Providers Care Manager Pool Name Role Phone Carmina Marmolejo MD Unavailable Unavailabl e Allergies, Adverse Reactions, Alerts Substance Reaction Status Criticality No Known Allergies Active No Inform ation Medications Medication Instructions Dosage Effective Dates (start - stop) Status Comments MELOXICAM 15 MG TABLET TAKE 1 TABLET BY MOUTH EVERY DAY - Active ZIAC (unknown strength) take 1 tablet by oral route every day Not Available - Active Clarinex 5 mg tablet take 1 tablet by oral route every day 5 MG - Active atorvastatin 20 mg tablet take 1 tablet by oral route every day 20 MG - Active meloxicam 15 mg tablet TAKE 1 TABLET BY MOUTH EVERY DAY - No Longer Active Procedures Procedure Date RADEX KNE COMPL 4/MORE VIEWS OFFICE/OUTPATIENT VISIT NEW Advance Directives Directive Yes / No Effective Date File Name No Information Encounters Encounter Description Practice Location Reason(s) For Visit Diagnoses Date Provider Providers Copied on Encounter [facility], [address] [place] [address], [address], [place] tel:[phone] [facility] No Information [address] [place], [place], [id number] . tel:[phone] [facility], [address], [place], [address], [place] tel:[phone] [facility] No Information [address], [place], [place], [id number] . tel: [phone] OFFICE/OUTPA TIENT VISIT NEW [facility], [address], [place], [address], [place] tel:[phone] [facility] Body mass index [BMI] 45.0-49.9, adultPain in left kneePain in right kneePrimary osteoarthritis of right kneePrimary osteoarthritis of left knee [address], [place], [place], [id number] . tel: [phone] Referring Provider: Elodia Mckenzie, [address] [place] [address], [place], [address]. tel:[phone] Family History Family Member Type Diagnosis Age At Onset Mother Problem Cardiovascular disease Payers Payer name Insurance type Covered constitution party ID Authoriza viki(s) Blue Access PPO E2 OT [id number] Cigna - IBEW Local 1 OT [id number] Social History Type Description Quantity Date Captured Comments Alcohol Use Details Unknown Caffeine Use Details Unknown Tobacco Use Status No Information Smoking Status No Information Sex Female Chief Complaint And Reason For Visit No Information Reason For Referral Reason For Referral No Information Plan Of Treatment Date Type Action Status Referral Ordered: RADEX KNE COMPL 4/MORE VIEWS Bilateral knee ordered Future Order: Lab Order Basic Me tabolic Panel (8) ([id number]), Ordered on: Ordered Future Order: Lab Order CBC, Marilynn telet; No Differential ([id number]), Ordered on: Ordered History Of Present Illness Encounter Date Complaint History Of Prese nt Illness No Information Functional Status Date Functional Assessmen t No Information Instructions Date Instruction Additional Infor mation Giving encouragement to exercise Related to Body mass index [BMI] 45.0-49.9, adult Assessments Type Assessment Date No Information Patient Care Teams Name Effective Dates (start - stop) Status Members No Information
--- NOTE | 2024-12-23 06:52 | WPDHPUPDATE1 ---
History and Physical Update Update Date/Time: 12/23/24 06:52 History and Physical has been reviewed, including an updated exam of the patient. There are NO changes in the patient's condition. Risks, benefits, and alternatives have been discussed and questions answered. Patient agrees to proceed with procedure.
[2024-12-23] MEDS: LACTATED RINGERS 1,000 ML 30 ML IV CONT (12:25)
--- NOTE | 2024-12-23 14:07 | WPDANESEPPF ---
Anes - Initial Pre Proc Eval Procedure: Operation Date: 12/23/24 14:00 Proposed Procedures p Left Extracorporeal Shock Wave Lithotripsy, - Manny Carranza MD s Cystoscopy, Left Stent Placement - Manny Carranza MD Date/Time: 12/23/24 14:07 Surgeon: Manny Carranza MD Pre Op Diagnosis: bilateral kidney stones Patient Data Age: 59 Gender: F Height: 1.52 m Weight: 119 kg Last Vital Signs Temp 98 F 12/23/24 12:15 Pulse 68 12/23/24 12:15 Resp 20 12/23/24 12:15 BP 126/67 12/23/24 12:15 Pulse Ox 95 12/23/24 12:15 O2 Del Method Room Air 12/23/24 12:15 Allergies Allergy/AdvReac Type Severity Reaction Status Date / Time No Known Allergies Allergy Verified 12/23/24 13:04 Home Medications ?Medication ?Instructions ?Recorded ?Confirmed ?Type atorvastatin 20 mg tablet 20 mg PO DAILY 12/14/24 12/14/24 History bisoprolol fumarate 5 mg tablet 5 mg PO DAILY 12/14/24 12/14/24 History desloratadine 5 mg tablet 5 mg PO DAILY 12/14/24 12/14/24 History (Clarinex) meloxicam 15 mg tablet 15 mg PO DAILY 12/14/24 12/14/24 History Patient hx anesthesia problems: none Family hx anesthesia problems: none Results Review: All pre-operative results and documents have been reviewed as part of the pre-operative evaluation. [facility] Past Medical History Medical History Pre-diabetes Hyperlipidemia Hypertension Morbid (severe) obesity with alveolar hypoventilation Bilateral kidney stones Social History Social History Smoking status: Never smoker Living arrangements: with family Spiritual care concerns: No Anes - Eval Final PreProcedure Day of Procedure 12/23/24 14:07 Patient weight: super morbidly obese Heart: regular rate and rhythm Lungs: decreased breath sounds Airway: Mallampati scale class II Neurological: alert and oriented Last oral intake: >/= 8 hours ASA classification: III Emergent: no Anesthetic plan: proceed Anesthesia type and monitoring: general GIVS and standard monitoring Results Review: All pre-operative results and documents have been reviewed as part of the pre-operative evaluation. Informed Consent: The patient's anesthetic plan and its attendant risks and benefits were discussed with the patient/family/POA. Questions were solicited and answers provided to the satisfaction of the patient/family/POA.
[2024-12-23] MEDS: ceFAZolin 2 GM/D5W 50 ML 2 GM/50 ML BAG IVPB (14:14)
--- NOTE | 2024-12-23 15:09 | P.OP_ITS ---
Procedure Note - Detailed Date of Procedure 12/23/24 Pre-op Diagnosis Left renal stone Post-op Diagnosis Same Procedure Performed Cystoscopy, left ureteral stent placement, left ESWL Surgeon Manny Carranza MD Anesthesia General Description of Procedure The patient was brought to the operative suite where she was placed in the frog- legged position on the Dornier lithotripter table. Flexible cystoscopy was undertaken with a 16F flexible cystoscopy. Her urethra and bladder neck were endoscopically normal. The bladder mucosa was normal and there was a single, orthotopic ureteral orifice bilaterally. A 0.035 glidewire was advanced into the left renal pelvis under fluoroscopy. A 4.8F J-J ureteral stent was positioned with the proximal coil in the renal pelvis and the distal coil in the bladder. The patient was then repositioned in the supine position and the focal point of the lithotriptor was placed at a large 2cm left renal calculus. A total of 2500 shocks were delivered at a power setting of 4. There appeared to be good fragmentation of the stone. The patient tolerated the procedure well and was taken to the recovery room in good condition. Drains No Pathology None sent Complications No immediate complications
[2024-12-23] MEDS: oxyCODONE HCL (*CRX) 5 MG TAB IR PO (16:29)
== END 2024-12-23 17:22 | disposition home or self-care (01) ==
PROVIDERS: PCP Family Medicine; Visit Provider Urology
PROC: (CPT 50590; principal; 2024-12-23 14:00)
PROC: (CPT 52352; 2024-12-23 14:00)
DX: N20.0 Calculus of kidney (principal); E78.5 Hyperlipidemia, unspecified; I10 Essential (primary) hypertension; R73.03 Prediabetes; E66.01 Morbid (severe) obesity due to excess calories; Z68.43 Body mass index [BMI] 50.0-59.9, adult
CPT/HCPCS: 50590; 52332; 74018; A9270; C1769; C2617; J0690; J1100; J2003; J2405; J2704; J3010; J7120

== ENCOUNTER 2025-01-04 14:52 | Outpatient (CLI) | payer BC, OTHER, SELFPAY ==
--- NOTE | ~2025-01-04 | XR_ITS ---
Supine and upright views of the abdomen Clinical history: Renal stone COMPARISON: 12/23/2024 Findings: Bowel gas pattern is nonspecific. No evidence for obstruction or free air. Left ureteral st ent now in place. Stable large left renal stones, largest near the left renal pelvis measuring up to 2.4 cm in diameter. 8mm right renal stone present. Osseous structures are intact. Impression: Bilateral nephrolithiasis, as detailed above. Left ureteral stent in place. Reviewed, dictated and finalized at location . Impression: Bilateral nephrolithiasis, as detailed above. Left ureteral stent in place.
--- OUTSIDE RECORDS SUMMARY | 2025-01-04 15:10 | XMS_ITS | Clinical Summary ---
Author Organization [facility] Address [address] [place] [address] Care Team Providers Care Floodplain Manager Name Role Phone Elodia Brunson NP Primary Care Provider [phone] Allergies No known active allergies Medications meloxicam [...] Active Problems Problem Noted Date Diagnosed Date Nephrolithiasis 12/30/2024 Encounter for diabetic foot exam 06/16/2024 Assessment & Plan (06/16/2024 7:40 AM TOOLMAKER GRADE THREE): Diabetic foot exam performed with monofilament, no abnormal findings Class 3 severe obesity due t o excess calories with body mass index (BMI) of 45.0 to 49.9 in adult 06/15/2024 Assessment & Plan (06/15/2024 11:19 AM TOOLMAKER GRADE THREE): Chronic, stable Encouraged to: Make healthy food choices, limiting intake of concentrated sweets, cholesterol, and saturated fat Monitor daily caloric intake and portion sizes Exercise most days of the week for a goal of at least 150 minutes of exercise per week Encounter for screening mamm ogram for malignant neoplasm of breast 07/10/2023 Elevated ALT measurement 07/10/2023 Assessment & Plan (06/15/2024 11:19 AM TOOLMAKER GRADE THREE): Chronic, stable Encouraged continued weight loss and a low-fat, low-cholesterol diet Will monitor for stability Assessment & Plan (07/10/2023 4:15 AM TOOLMAKER GRADE THREE): Chronic, recurrent, normal at last check Reviewed lab results dated 07/05/2023 Encouraged continued weight loss, low-fat, low-cholesterol diet Ordered CMP to be done prior to next visit Vitamin D deficiency 01/09/2023 Assessment & Plan (06/15/2024 11:17 AM TOOLMAKER GRADE THREE): Chronic, stable, not controlled Recommended vitamin D3 5000 IU daily with a meal Will monitor for stability Assessment & Plan (07/10/2023 4:18 AM TOOLMAKER GRADE THREE): Chronic, improved Reviewed labs dated 07/05/2023 Recommended [...] 01/09/2023 Assessment & Plan (06/15/2024 11:18 AM TOOLMAKER GRADE THREE): Chronicity unknown, normal at most recent check Will monitor for stability Assessment & Plan (07/10/2023 4:15 AM TOOLMAKER GRADE THREE): New diagnosis, normal at most recent check [...] (10/10/2022): Added automatically from request for surgery [id number] Assessment & Plan (01/09/2023 5:21 AM CDT): Encouraged to get screening colonoscopies as recommended by customer account specialist. Encounter for vitamin deficiency screening 06/26 Assessment & Plan (06/27/2022 12:30 AM TOOLMAKER GRADE THREE): Ordered vitamin-D 25 OH. Screening for deficiency anemia 06/26/2022 Assessment & Plan (06/27/2022 12:25 AM TOOLMAKER GRADE THREE): Ordered CBC. 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 Assessment & Plan (06/27/2022 12:25 AM TOOLMAKER GRADE THREE): Chronic, stable, controlled with medication-continued on Valtrex as directed as needed, refills sent to pharmacy per request. Need for vaccination 06/26/2022 Assessment & Plan (06/27/2022 12:27 AM TOOLMAKER GRADE THREE): Influenza vaccine given. Chronic pain of both knees 10/18/2021 Assessment & Plan (06/15/2024 11:17 AM TOOLMAKER GRADE THREE): Chronic, stable Continued on meloxicam Can refer [...] 03/09/2021 Assessment & Plan (06/15/2024 11:16 AM TOOLMAKER GRADE THREE): Chronic, uncontrolled/worsened, not on medication Discussed options for treatment, is considering Encouraged weight loss efforts Assessment & Plan (07/10/2023 4:17 AM TOOLMAKER GRADE THREE): Chronic, stable Reviewed most recent hemoglobin A1c dated 12/17/2022 Encouraged continued weight loss Ordered CMP and hemoglobin A1c to be done prior to next Assessment & Plan (01/09/2023 5:27 AM CDT): Chronic, stable-encouraged weight loss efforts. Reviewed recent CMP and hemoglobin A1c at visit today. Assessment & Plan (06/27/2022 12:29 AM TOOLMAKER GRADE THREE): Chronic, improved with weight loss-ordered hemoglobin A1c and CMP to be done prior to next visit. Encouraged efforts at continued weight loss. Assessment & Plan (06/14/2021 3:42 PM TOOLMAKER GRADE THREE): ha1c is 5.8 today- cont saxenda Assessment & Plan (03/09/2021 8:39 AM CDT): ha1c has decreased from 6.4>5.9- this is a tremendous improvement! Cont debra. Annual physical exam 09/22/2019 Assessment & Plan (06/15/2024 11:13 AM TOOLMAKER GRADE THREE): Reviewed past and current medical history, surgical [...] needed. Assessment & Plan (06/14/2021 3:42 PM TOOLMAKER GRADE THREE): Second shingrix given today Advise mrna booster in 1-2 weeks after shingrix utd on flu shot, tdap Cont to work on diet and weight loss rtc 4 months Assessment & Plan (09/22/2019 3:17 PM TOOLMAKER GRADE THREE): Wear sunscreen while outdoors. Wear seatbelts while [...] 09/22/2019 Assessment & Plan (06/15/2024 11:14 AM TOOLMAKER GRADE THREE): Chronic, episodic, currently asymptomatic Will monitor for stability Encouraged to elevate legs when able and to wear compression socks or stockings Assessment & Plan (01/09/2023 5:33 AM CDT): Chronic, stasis-will continue to monitor for worsening symptoms or edema. Encouraged elevation of extremities when able and compression socks or stockings. Assessment & Plan (09/22/2019 3:52 PM TOOLMAKER GRADE THREE): Work on wt loss Get up and move around while at work ,periodically Wear compression stockings when travelling long distance History of basal cell carcinoma (BCC) of skin Overview (09/22/2019): r upper arm, Dr Davis Assessment & Plan (01/09/2023 5:28 AM CDT): Encouraged to follow-up with dermatology as recommended. Assessment & Plan (09/22/2019 3:53 PM TOOLMAKER GRADE THREE): Sunscreen Cont close surveillance with grounds cleaner Non-seasonal allergic rhinitis 09/22/2018 Overview (09/22/2019): Allergic to dust and mold Assessment & Plan (06/15/2024 11:11 AM TOOLMAKER GRADE THREE): Chronic, stable, controlled with medication Continued on Clarinex Assessment & Plan (01/09/2023 5:32 AM CDT): Chronic, stable, controlled with medication-continued on Clarinex. Assessment & Plan (09/22/2019 3:36 PM TOOLMAKER GRADE THREE): Cont clarinex daily Mixed hyperlipidemia 09/23/2017 Assessment & Plan (06/15/2024 11:12 AM TOOLMAKER GRADE THREE): Chronic, uncontrolled, with minimally elevated triglycerides and low HDL Continued on atorvastatin Recommended low-fat/low-cholesterol diet, high in fiber and plant protein Assessment & Plan (07/10/2023 4:16 AM TOOLMAKER GRADE THREE): Chronic, uncontrolled, with minimally elevated triglycerides and [...] lipids. Assessment & Plan (06/27/2022 12:26 AM TOOLMAKER GRADE THREE): Chronic, stable, with slight elevation in triglycerides at last check-continued on simvastatin. Lipid panel ordered prior to next visit. Assessment & Plan (02/23/2022 10:53 AM CDT): c Assessment & Plan (06/14/2021 3:40 PM TOOLMAKER GRADE THREE): Suspect cholesterol will be much better, check now, dec dose if possible and recheck before our next appt in 4 months at which time I Hope to stop it Assessment & Plan (05/06/2020 3:16 PM CDT): Cont low chol diet and medication Cont to monitor liver panel Assessment & Plan (09/22/2019 3:38 PM TOOLMAKER GRADE THREE): Take the chol pill daily in am. Lipids in 6mos Essential (primary) hypertension 09/19/2017 Assessment & Plan (06/15/2024 11:11 AM TOOLMAKER GRADE THREE): Chronic, stable, controlled with medication Continued on bisoprolol Assessment & Plan (01/23/2024 12:30 PM CDT): Chronic, stable, controlled with medication Continued on bisoprolol Assessment & Plan (07/10/2023 4:15 AM TOOLMAKER GRADE THREE): Chronic, stable, controlled with medication Continued on bisoprolol Ordered CMP be done prior to next visit Assessment & Plan (01/09/2023 5:19 AM CDT): Chronic, stable, controlled with medication-reviewed recent CMP. Continued on bisoprolol. Assessment & Plan (06/27/2022 12:28 AM TOOLMAKER GRADE THREE): Chronic, stable, controlled with medication-continued bisoprolol. Ordered CMP to be done prior to next visit. Assessment & Plan (02/23/2022 10:52 AM CDT): Controlled on bisoprolol Assessment & Plan (06/14/2021 3:40 PM TOOLMAKER GRADE THREE): Looking great! With weight loss, d/c hctz [...] health Assessment & Plan (09/22/2019 3:36 PM TOOLMAKER GRADE THREE): Follow low sodium DASH Diet. Exercise regularly [...] 09/19/2017 Assessment & Plan (06/15/2024 11:13 AM TOOLMAKER GRADE THREE): Chronic, stable, controlled without medication Will monitor for stability Assessment & Plan (01/09/2023 5:32 AM CDT): Chronic, stable, controlled without medication-will continue to monitor for worsening symptoms,if occurs and is interested, can refer for pelvic floor physical therapy, consider medication, and/or refer to quality system manager for further evaluation and management. Personal history of colon cancer, stage II 09/19 Overview (09/22/2019): no chemo/rx, just removal of the tumors and ff up areas carly, age 38, 3 large polyps cancerous removed. Colonoscopy 05/2010, Dr Reynolds. Assessment & Plan (01/09/2023 5:26 AM CDT): Encouraged to get screening colonoscopy as recommended by customer account specialist. Assessment & Plan (06/14/2021 3:41 PM TOOLMAKER GRADE THREE): Repeat is due 11/2022 Assessment & Plan (09/22/2019 3:35 PM TOOLMAKER GRADE THREE): Patient to check with Dr Reynolds as [...] 07/10/2023 Assessment & Plan (06/11/2023 10:35 AM TOOLMAKER GRADE THREE): VSS (low grade temp 99.5F), NAD, lungs CTAB Sx duration 2.5 weeks approximately Recent COVID 05/23/2023 Possible bronchitis . Ddx secondary bacterial PNA post COVID Medrol dose pack Augmentin, azithromycin Tessalon as needed as cough suppressant ER for CP, SOB, vomiting, dizziness, persisting fevers Colon polyps 10/10/2022 01/09/2023 Overview (10/10/2022): Added automatically from request for surgery [id number] Encounter to establish care 06/26/2022 01/09/2023 Assessment & Plan (06/27/2022 12:30 AM TOOLMAKER GRADE THREE): Reviewed past and current medical history, surgical [...] 01/09/2023 Assessment & Plan (06/27/2022 12:25 AM TOOLMAKER GRADE THREE): Chronic, present in 2019 and 2020, now resolved upon most recent check, likely improved with weight loss-will continue to monitor periodically. Encouraged continued weight loss. Assessment & Plan (01/05/2021 12:36 PM CDT): On statin Has had weight gain Liver us to further investigate Croup 09/22/2019 05/05/2020 Assessment & Plan (09/22/2019 3:51 PM TOOLMAKER GRADE THREE): Doxycycline 100mg po bid x 10d Coricidin HBP or guaifenesin DM ok to take for the cough Rest and hydrate Call if high fever, sob, worsening sx Encounters Date Type Department Care Team Description 12/24/2024 Orders Only [facility] Health Information Management [address] [place] [id number] Scanning, Provider 10/21/2024 Telephone [facility] at [address] [address] Elodia Brunson NP 10/20/2024 Telephone [facility] at [address] [address] Elodia Brunson NP Recommendation Request 10/16/2024 Results Follow-Up [facility] at [address] [phone] Ann Larsen NP Urine culture Urine, clean voided 10/15/2024 9:31 PM CDT - 10/15/2024 11:59 PM CDT Hospital Encounter [address] [address] UTI symptoms Discharge Disposition: Discharge to home or self care 10/15/2024 4:30 PM CDT Office Visit [facility] at [address] [phone] Ann Larsen NP UTI symptoms (Primary Dx); Gross hematuria 10/15/2024 Telephone [facility] at [address] [phone] Ann Larsen NP Blood in Urine 10/15/2024 Nurse Triage [facility] at [place] [address] [place] [address] Susan Bradford RN from Last [...] Added automatica lly from request for surgery [id number] Scalp lesion 03/09/2021 Transaminitis 01/05/2021 Left leg swelling 01/05/2021 Nephrolithiasis Family History Medical History Relation Name Comments [...] on file Legal Sex Female 6:21 AM TOOLMAKER GRADE THREE Gender Identity Female 12/29/2020 6:34 AM CDT Sexual Orientation Straight 10/04/2020 6: 47 AM TOOLMAKER GRADE THREE Occupation Industry Job Start Date Job End [...] 4:24 PM CDT Height 155.5 cm (5' 1.22) 10/15/2024 4:24 PM CD T Body Mass Index 49.71 10/15/2024 4:24 PM CDT Plan of Treatment Health Maintenance Due Date Last Done Comments Albumin Creatinine Ratio, Urine 1965 Hepatitis C Screening 1965 Dilated Eye Exam 1965 Hepatitis B Screening 1984 Zoster Vaccine (2 of 2) 06/14/2021 06/14/2021, 03/08 Covid-19 Vaccine ( - 2023-2 5 season) 2024 02/26/2022, 07/08/2021, [...] Procedure Name Priority Date/Time Associated Diagnosis Comments SCAN - RADIOLOGY/IMAGING 12/24/2024 9:17 PM CDT URINE CULTURE Routine 10/15/2024 9:35 PM CDT UTI symptoms POCT URINALYSIS DIPSTICK Routine 10/15/2024 4:40 PM CDT UTI symptoms SCREENING MAMMOGRAM BILATERAL W [place]O Schedule Routine, Read Routine (OP Routine) 07/27/2024 1:17 PM TOOLMAKER GRADE THREE Screening mammogram, encounter for COMPREHENSIVE METABOLIC PANEL [...] hyperlipidemia COLONOSCOPY 12/14/2022 8:07 AM CDT THINPREP I O PSYCHOLOGIST PAP (IMAGE GUIDED) LIQUID-BASED PREP Routine 10/03/2017 3:52 PM TOOLMAKER GRADE THREE from Last 3 Months or Most Recently Relevant to Health Maintenance Results * SCAN - RADIOLOGY/IMAGING (12/24/2024 9:17 PM CDT) Anatomical Region Laterality Modality Other us Provider Scanning Final Result * Urine culture Urine, clean voided (10/15/2024 9:35 PM CDT) Report Final Report: Less than 100,000 colonies/mL (clinically insignificant growth based on current clinical standards) Organism (CLINICALLY INSIGNIFICANT GROWTH SINGH JACKSON Urine, clean voided 10/15/2024 9:35 PM CDT 10/15/2024 9:47 PM CDT Narrative SINGH JACKSON - 10/17/2024 8:33 AM CDT Testing performed by [facility] ([phone]) us Ann Larsen NP LAB MICROBIOLOGY - GENERAL [place] Final Result SINGH MCLAUGHLIN [facility] Department [place] [address] * (ABNORMAL) POCT urinalysis dipstick (10/15/2024 4:40 PM CDT) Color, Urine, POC Dark Yellow Clarity, ur, POC Turbid(A) Clear Glucose, ur, POC Negative Negative MG/DL Bilirubin, ur, POC Small Negative, Small, Moderate, Large Ketones, ur, POC Negative Negative Specific [place], POC 1.030 1.003 - 1.030 Blood, ur, POC Large(A) Negative pH, ur, POC 5.5 5.0 - 8.0 Protein, ur, POC 300.(A) Negative Urobilinogen, urine, POC 0.2 0.2 - 1.0 mg/dL Nitrite, ur, POC Negative Negative Leukocytes, ur, POC Trace(A) Negative Lot Number [id number] Urine 10/15/2024 4:40 PM CDT Ann Larsen NP POINT OF CARE TEST ORDERABLES F inal Result * Screening Mammogram Bilateral [place] (07/27/2024 1:17 PM TOOLMAKER GRADE THREE) Anatomical Region Laterality Modality Breast Bilateral Mammography Impressions 07/27/2024 1:29 PM TOOLMAKER GRADE THREE BI-RADS ATLAS category (overall): 2 - Benign There is no mammographic evidence of malignancy. A 1 year screening mammogram is recommended. The patient has been or will be contacted. We recommend annual screening mammography for women at average risk of breast cancer beginning at age 40, based on guidelines of the [employer] (ACR Practice Parameter for the Performance of Screening and Diagnostic Mammography) and [employer]. For women with and elevated risk of breast cancer, please refer to the ACR Practice Parameter for specific screening recommendations. The patient will be entered into a reminder system with a target due date of 1 year for her next screening exam. Narrative 07/27/2024 1:29 PM TOOLMAKER GRADE THREE Screening Mammogram Bilateral W [place]: 07/27/24 The [...] A1C 7.0(H) <5.7 % of total Hgb Tu [facility] Sarm[facility] Comment: For someone without known diabetes, [...] 8:50 AM CDT 05/23/2024 8:51 AM CDT [facility] - 05/24/2024 9:24 AM CDT FASTING:YES FASTING: YES Elodia Brunson NP LAB BLOOD ORDERABLES Final Resul t [facility] [address] [place] [address] * (ABNORMAL) Lipid panel (05/23/2024 8:50 AM [...] LDL-C. Justus SS et al. DANGELO. 2013;310(19): 6712-9078 (http://education.SolidFire/faq/OFX099) Chol/HDL ratio 3.7 <5.0 (calc) [facility] [...] LAB BLOOD ORDERABLES Final Resul t [facility] [address] [phone] * (ABNORMAL) Comprehensive metabolic panel (05/23/2024 8:50 [...] BLOOD ORDERABLES Final Resul t [facility] [address] [place] [place] [phone] * COLONOSCOPY (12/14/2022 8:07 AM CDT) Anatomical Region Laterality Modality Other Narrative Procedure Note Lamin Reynolds MD - 12/14/2022 8:07 AM CDT [facility] Patient Name: Madhavi Goetz Procedure Date: 12/14/2022 8:07 AM Date of : 1965 Admit Type: Outpatient Age: 57 Gender: Female Attending MD: Lamin Reynolds M.D. Room: [facility] ENDOSCOPY ROOM 02 Note Status: Finalized Procedure: [...] The scope was passed under direct vision.The [id number] was introduced through the anusand advanced to [...] On: 12/14/2022 8:07 AM Recognized by the [place] [employer] for promoting quality in endoscopy us Lamin Reynolds MD ENDOSCOPY PROCEDURES Final Res ult * ThinPrep Gynecologic Pap Test (Image-guided), Liquid-based Preparation (10/03/2017 3:52 PM TOOLMAKER GRADE THREE) CLINICAL INFORMATION [facility] HISTORICAL RESULTS Comment:Hysterectomy LMP: HYST [facility] HISTORICAL RESULTS PREV. PAP: [facility] Comment:Information not prov ided PREV. BX: [facility] HIST[facility]ICAL RESULTS Comment:Information not prov ided SOURCE: [facility] HISTORICAL RESULTS Comment:Vaginal cuff STATEMENT OF ADEQUACY: [facility] HISTORICAL RESULTS Comment:SATISFACTORY FOR PEACE LUATION INTERPRETATION/RESU LT: [facility] HISTORICAL RESULTS Comment:Negative for intraep ithelial lesion or malignancy. COMMENT: [facility] HISTORICAL RESULTS Comment:This Pap test has be en evaluated with computer assisted technology. BIODIESEL PROCESS CONTROL TECHNICIAN: [facility] HISTORICAL RESULTS Comment:LMT, CT(ASCP) CT scr eening location: [place] [address] [place] [address] 10/03/2017 3:52 PM TOOLMAKER GRADE THREE 10/12/2017 12:10 AM TOOLMAKER GRADE THREE Narrative [facility] HISTORICAL RESULTS - 10/11/2017 11:44 PM TOOLMAKER GRADE THREE 0 PERFORMING LAB: [facility] [address] [facility] [phone] Abigail Baker MD us Marcia Resendiz MD LAB PATHOLOGY ORDERABLES Fin al Result [facility] HISTORICAL RESULTS from Last 3 Months or Most Recently Relevant to Health Maintenance Insurance [employer] OOS [facility] IBEW CIGNA IBEW [employer] OOS CIG[employer] IBEW BLUE ACCESS OOS Advance Directives For more information, please contact: [phone] * Full Code (Latest Code Status on File) Date Activated Date Inactivated Comments 12/14/2022 8:07 AM 12/14/2022 1:15 PM Care Teams Floodplain Manager Relationship Specialty Start Date End Date Elodia Brunson NP [address] [place] [id number] PCP - General Family Practice 06/22/22
--- OUTSIDE RECORDS SUMMARY | 2025-01-04 15:10 | XMS_ITS | Encounter Summary ---
Author Organization [facility] Address [address] [place] [address] Care Team Providers Care Zigzagger Name Role Phone Unavailable Primary Care Provider Unavailabl e Encounter Details Date Type Department Care Team (Late st Contact Info) Description 05/05/2019 Lab Requisition [facility] [address] [facility] [place] [address] Lupe Davis DO [address] [facility] [address] [place] [address] Social History Tobacco Use Types Packs/Day Years [...] AM CDT) Case Report Dermatopathology Report Case: [id number] Authorizing Provider: Lupe Davis DO Collected: 05/04/2019 12:00 AM Ordering Location: [facility] Derm[facility] Received: 05/05/2019 12:15 PM [...] ACTINIC KERATOSIS, LICHENOID (L57.0) 1:21 PM [facility] DERMATOPATHOLOGY LABORATORY at 1321 CDT Clinical History A-B: R/O NMSC. C: R/O MM. D: R/O NMSC. 1:21 PM [facility] DERMATOPATHOLOGY LABORATORY Gross Description Specimen A: Received is one formalin filled container labeled with the patient's name and designated right upper arm. The specimen consists of a shave measuring [id number]. Jar 0. Specimen B: Received is one formalin filled container labeled with the patient's name and designated right forearm. The specimen consists of a shave measuring [id number]. Jar 0. Specimen C: Received is one formalin filled container labeled with the patient's name and designated left FA distal. The specimen consists of a shave measuring [id number]. Jar 0. Specimen D: Received is one formalin filled container labeled with the patient's name and designated left FA proximal. The specimen consists of a shave measuring [id number]. Jar 0. 1:21 PM [facility] DERMATOPATHOLOGY LABORATORY Microscopic Description Specimen [...] determined by the Dermatopathology Laboratory at [facility], directed by Dr. Verónica Mendoza. These tests need not be, and therefore are not, approved by the [place] Food and Drug Administration. The tests are used for clinical purposes. Billing Codes Specimen Charges Stain Charges 48958 62525 [id number] [id number] 1 1 1 1 9 1:21 PM [...] - PATHOLOGY/CYTOLOGY ORDERABLES Final Result DERMATOPATHOLOGY LABORATORY [facility] - Department of Dermatology [address] [place] [address] 5th [place] [address], [facility] [phone] documented in this encounter Visit Diagnoses Not on filedocumented in this encounter
--- OUTSIDE RECORDS SUMMARY | 2025-01-04 15:10 | XMS_ITS | Clinical Summary ---
Author Organization [facility] Address [address] [place] [address] Care Team Providers Care Collar Tacker Name Role Phone Unavailable Primary Care Provider Unavailabl e Source Comments [facility],non-owned Affiliates and Associated Physician Practices is amultiple site organization consisting of ambulatory clinics and hospital sitesin [place], [place], [place] and [place]. This disclosure is being madepursuant to the Care Everywhere program and may not contain all information available regarding this patient. Last updated 18.[facility] [employer] Social History Tobacco Use Types Packs/Day Years [...] Goetz Payer ID:[id number] (NAIC) Type:O Address: [address] [facility] Address: [facility] [address] [place] [address] ANTHEM Member Subscriber Plan / Payer (Ef fective 2013-Present) Name:Michelle Goetz Relation to Subscriber:Self Name:Michelle Goetz Payer ID:[id number] (NAIC) Type:PPO Address: [facility] [id number] [place] [id number]
--- OUTSIDE RECORDS SUMMARY | 2025-01-04 15:10 | XMS_ITS | Encounter Summary ---
Author Organization [facility] Address [address] [place] [address] Care Team Providers Care Combiner Operator Name Role Phone Unavailable Primary Care Provider Unavailabl e Encounter Details Date Type Department Care Team (Late st Contact Info) Description 07/23/2019 Lab Requisition [facility] Care DermPath Lab [address] [facility], [facility] [place] [address] Lupe Davis DO [address] [facility] 3 [place] [address] Social History Tobacco Use Types Packs/Day Years [...] Comments DERMATOPATHOLOGY Routine 07/22/2019 12:0 0 AM RECORD MAKER documented in this encounter Results * DERMATOPATHOLOGY (07/22/2019 12:00 AM RECORD MAKER) Case Report Dermatopathology Report Case: [id number] Authorizing Provider: Lupe Davis DO Collected: 07/22/2019 12:00 AM Ordering Location: [facility] Care DermPath Lab Received: 07/23/2019 08:39 AM Pathologist: Kailey Hernadez MD Specimen: Skin, right upper arm 9 1:54 PM RECORD MAKER DERMATOPATHOLOGY LABORATORY Final Diagnosis Specimen A. SKIN, right upper arm: DERMAL SCAR RESIDUAL BASAL CELL CARCINOMA NOT IDENTIFIED (L90.5) 9 1:54 PM RECORD MAKER DERMATOPATHOLOGY LABORATORY at 1354 RECORD MAKER Clinical History R/O BCC, superficial multifocal type. Bx proven [id number]. 1:[address] [facility] DERMATOPATHOLOGY LABORATORY Gross Description Specimen A: Received is one formalin filled container labeled with the patient's name and designated right upper arm. The specimen consists of an ellipse measuring [id number] and is oriented with the notch at [...] in cassettes 3-4. Jar 0. 1:[address] [facility] DERMATOPATHOLOGY LABORATORY Microscopic Description Specimen A. SKIN, right upper arm: There are fibroblasts and collagen bundles oriented parallel to the skin surface. There are elongated blood vessels, some of which are oriented perpendicular to the skin surface. No basal cell carcinoma is identified. 1:[address] [facility] DERMATOPATHOLOGY LABORATORY Disclaimer An external and internal positive and negative controls are appropriate for the histochemical, immunohistochemical and immunofluorescence stain(s) in this case (if any), except where stated explicitly. The performance characteristics of the stain(s) cited in this report were developed and its performance characteristic determined by the Dermatopathology Laboratory at [facility], directed by Dr. Verónica Mendoza. These tests need not be, and therefore are not, approved by the [place] Food and Drug Administration. The tests are used for clinical purposes. Billing Codes Specimen Charges Stain Charges 30565 1 9 1:[address] [facility] DERMATOPATHOLOGY LABORATORY Embedded Images 1:[address] [facility] DERMATOPATHOLOGY LABORATORY Pathology/Cytolog y TISSUE SPECIMEN FROM SKIN / Unknown 07/22/2019 07/23/2019 8:[address] [facility] us Lupe Davis DO LAB - PATHOLOGY/CYTOLOGY ORDERABLES Final Result DERMATOPATHOLOGY LABORATORY [facility] - Department of Dermatology [address] [facility], [address] [place] [address], [facility] [phone] documented in this encounter Visit Diagnoses Not on filedocumented in this encounter
--- OUTSIDE RECORDS SUMMARY | 2025-01-04 15:10 | XMS_ITS | Encounter Summary ---
Author Organization [facility] Address [address] [place] [address] Care Team Providers Care Sanitation Supervisor Name Role Phone Unavailable Primary Care Provider Unavailabl e Encounter Details Date Type Department Care Team (Late st Contact Info) Description 08/15/[address] [facility] DermPath Lab [address] [facility], [facility] [place] [address] Lupe Davis DO [address] [facility] [address] [place] [address] Social History Tobacco Use Types Packs/Day Years [...] Comments DERMATOPATHOLOGY Routine 08/11/2020 12:0 0 AM SOLDERING MACHINE OPERATOR AUTOMATIC documented in this encounter Results * DERMATOPATHOLOGY (08/11/2020 12:00 AM SOLDERING MACHINE OPERATOR AUTOMATIC) Case Report Dermatopathology Report Case: [id number] Authorizing Provider: Lupe Davis DO Collected: 08/11/2020 12:00 AM Ordering Location: [facility] Care DermPath Lab Received: 08/15/2020 10:19 AM Pathologist: Jc Mendoza MD Specimen: Skin, right posterior ankle 1:33 PM SOLDERING MACHINE OPERATOR AUTOMATIC DERMATOPATHOLOGY LABORATORY Final Diagnosis Specimen A. SKIN, right posterior ankle: BASAL CELL CARCINOMA, SUPERFICIAL MULTIFOCAL (C44.712) 1:33 PM SOLDERING MACHINE OPERATOR AUTOMATIC DERMATOPATHOLOGY LABORATORY at 1333 SOLDERING MACHINE OPERATOR AUTOMATIC Clinical History R/O NMSC vs LPLK, non-healing. 1 1:33 PM SOLDERING MACHINE OPERATOR AUTOMATIC DERMATOPATHOLOGY LABORATORY Gross Description Specimen A: Received is one formalin filled container labeled with the patient's name and designated right posterior ankle. The specimen consists of a shave measuring [id number]. Jar 0. 1 1:33 PM SOLDERING MACHINE OPERATOR AUTOMATIC DERMATOPATHOLOGY LABORATORY Microscopic Description Specimen A. SKIN, right posterior ankle: Attached to the undersurface of the epidermis, there are small aggregates of basaloid cells with a high nuclear to cytoplasmic ratio and peripheral palisading. 1 1:33 PM SOLDERING MACHINE OPERATOR AUTOMATIC DERMATOPATHOLOGY LABORATORY Disclaimer An external and internal positive and negative controls are appropriate for the histochemical, immunohistochemical and immunofluorescence stain(s) in this case (if any), except where stated explicitly. The performance characteristics of the stain(s) cited in this report were developed and its performance characteristic determined by the Dermatopathology Laboratory at [facility], directed by Dr. Verónica Mendoza. These tests need not be, and therefore are not, approved by the [place] Food and Drug Administration. The tests are used for clinical purposes. Billing Codes Specimen Charges Stain Charges 21819 1 1 1:33 PM SOLDERING MACHINE OPERATOR AUTOMATIC DERMATOPATHOLOGY LABORATORY Embedded Images 1 1:33 PM SOLDERING MACHINE OPERATOR AUTOMATIC DERMATOPATHOLOGY LABORATORY Pathology/Cytolog y TISSUE SPECIMEN FROM SKIN / Unknown 08/11/2020 08/15/2020 10:19 AM SOLDERING MACHINE OPERATOR AUTOMATIC Lupe Davis DO LAB - PATHOLOGY/CYTOLOGY ORDERABLES Final Result DERMATOPATHOLOGY LABORATORY [facility] - Department of Dermatology [address] [place] [address], [facility] [phone] documented in this encounter Visit Diagnoses Not on filedocumented in this encounter
--- OUTSIDE RECORDS SUMMARY | 2025-01-04 15:10 | XMS_ITS | Encounter Summary ---
Author Organization [facility] Address [address] [facility] [address] Care Team Providers Care Irrigator Name Role Phone Unavailable Primary Care Provider Unavailabl e Encounter Details Date Type Department Care Team (Late st Contact Info) Description 01/06/2024 Lab Requisition [facility] - DermPath Lab [address] [facility], [facility] [place] [id number] Lupe Davis DO [address] [facility] 3 [place] [address] Social History Tobacco Use Types Packs/Day Years [...] PM CDT) Case Report Dermatopathology Report Case: [id number] Authorizing Provider: Lupe Davis DO Collected: 01/06/2024 02:32 PM Ordering Location: [facility] - Received: 01/07/2024 01:01 PM [...] characteristic determined by the Dermatopathology Laboratory at [facility], directed by Dr. Verónica Mendoza. These tests need not be, and therefore are not, approved by the [place] Food and Drug Administration. The tests are used for clinical purposes. Billing Codes Specimen Charges Stain Charges 62375 69946 06762 1 1 1 4 2:50 PM CDT [...] PATHOLOGY/CYTOLOGY ORDERABLES Final Result DERMATOPATHOLOGY LABORATORY [facility] - Department of Dermatology [facility] Specialized Medicine [address] [place] [address], [address] [phone] documented in this encounter Visit Diagnoses Not on filedocumented in this encounter
--- OUTSIDE RECORDS SUMMARY | 2025-01-04 15:10 | XMS_ITS | Encounter Summary ---
Author Organization [facility] Address [address] [facility] [place] [address] Care Team Providers Care Steward/Stewardess Second Name Role Phone Unavailable Primary Care Provider Unavailabl e Encounter Details Date Type Department Care Team (Late st Contact Info) Description 01/25/2020 Lab Requisition [facility] DermPath Lab [address] [facility], [facility] [place] [address] Lupe Davis DO [address] [facility] 3 [place] [address] Social History Tobacco Use Types Packs/Day Years [...] AM CDT) Case Report Dermatopathology Report Case: [id number] Authorizing Provider: Lupe Davis DO Collected: 01/21/2020 12:00 AM Ordering Location: [facility] DermPath Lab Received: 01/25/2020 12:04 [...] The specimen consists of a shave measuring [id number]. Jar 0. 0 4:32 PM CDT DERMATOPATHOLOGY [...] characteristic determined by the Dermatopathology Laboratory at [facility], directed by Dr. Verónica Mendoza. These tests need not be, and therefore are not, approved by the [place] Food and Drug Administration. The tests are used for clinical purposes. Billing Codes Specimen Charges Stain Charges 60220 1 0 4:32 PM CDT DERMATOPATHOLOGY LABORATORY Embedded Images 0 4:32 PM CDT DERMATOPATHOLOGY LABORATORY Pathology/Cytolog y TISSUE SPECIMEN FROM SKIN / Unknown 01/21/2020 01/25/2020 12:04 PM CDT us Lupe Davis DO LAB - PATHOLOGY/CYTOLOGY ORDERABLES Final Result DERMATOPATHOLOGY LABORATORY [facility] - Department of Dermatology [place] [address], [facility] [phone] documented in this encounter Visit Diagnoses Not on filedocumented in this encounter
--- OUTSIDE RECORDS SUMMARY | 2025-01-04 15:11 | XMS_ITS | Encounter Summary ---
Author Organization [facility] Care Team Providers Care Bucket Hooker Name Role Phone Matilde Vizcaino MD Primary Care Provider [phone] Meme Velazquez MD Primary Care Provider [phone] Christine Daugherty NP Primary Care Provider + [phone] Elodia Brunson CASINO ATTENDANT Primary Care Provider [phone] Unknown, Notinfile Primary Care Provider Unavail able Elodia Brunson CASINO ATTENDANT Primary Care Provider [phone] Encounter Details Date Type Department Care Team (Latest Contact Info) Description 09/13/2016 Orders Only [facility]INCONV Provider, MD Shabbir [address] [place] [id number] Social History Tobacco Use Types Packs/Day Years Used Date Smoking Tobacco: Never Assessed Comments Unknown Sex and Gender Information Value Date Recorded Sex Assigned at Not on file Legal Sex Female 6:21 AM IT BUSINESS PROCESS ARCHITECT Gender Identity Female 12/29/2020 6:34 AM CDT Sexual Orientation Straight 10/04/2020 6: 47 AM IT BUSINESS PROCESS ARCHITECT documented as of this encounter Plan of Treatment Not on file documented as of this encounter Procedures Procedure Name Priority Date/Time Associated Diagnosis Comments COLONOSCOPY - SCAN 09/13/2016 12 :00 AM IT BUSINESS PROCESS ARCHITECT documented in this encounter Results * COLONOSCOPY - SCAN (09/13/2016 12:00 AM IT BUSINESS PROCESS ARCHITECT) Narrative 09/13/2016 12:00 AM IT BUSINESS PROCESS ARCHITECT Ordered by an unspecified provider. us Historical Provider Final Res ult documented in this encounter Visit Diagnoses Not on filedocumented in this encounter Care Teams Bucket Hooker Relationship Specialty Start Date End Date Matilde Vizcaino MD [address] [place] [address] [id number] PCP - General 11/13/17 01/05/21 Meme Velazquez MD [address] [place] [address] [phone] PCP - General Internal Medicine 01/06/21 04/18/22 Christine Daugherty NP [address] [place] [address] [phone] PCP - General Internal Medicine 04/19/22 04/26/22 Elodia Brunson NP [address] [place] [address] PCP - General Family Practice 04/30/22 05/06/22 Unknown, Notinfile PCP - General 06/14/22 06/21/22 Elodia Brunson CASINO ATTENDANT [address] [place] [address] PCP - General Family Practice 06/22/22 documented as of this encounter
--- OUTSIDE RECORDS SUMMARY | 2025-01-04 15:11 | XMS_ITS | Clinical Summary ---
Author Organization [facility] Address [address] [place] [address] Care Team Providers Care Straight Line Press Setter Name Role Phone Unavailable Primary Care Provider Unavailabl e Immunizations Immunization Administration Dates Next Due Covid-19, Mrna, Lnp-s, Pf, 30 Mcg/0.3 Ml Dose (P fizer) 07/08/2021 Social History Tobacco Use Types Packs/Day Years Used Date Smoking Tobacco: Never Assessed Comments Unknown Sex and Gender Information Value Date Recorded Sex Assigned at Not on file Legal Sex Female 11:02 AM RETREAD OPERATOR Gender Identity Not on file Sexual Orientation [...]
--- OUTSIDE RECORDS SUMMARY | 2025-01-04 15:11 | XMS_ITS | Referral Summary ---
Author Organization [facility] Office Center Address [address] [place] [address] Care Team Providers Care Activities Director Scouting Name Role Phone Elodia Brunson NP Primary Care Provider [phone] Encounters Date Type Department Care Team Description 12/24/2024 Orders Only [facility] [address] [place] [address] Scanning, Provider 10/21/2024 Telephone [facility] Primary Care at [address] [phone] Elodia Brunson NP 10/20/2024 Telephone [facility] Primary Care at [address] [phone] Elodia Brunson NP Recommendation Request 10/16/2024 Results Follow-Up [facility] at [address] [phone] Ann Larsen NP Urine culture Urine, clean voided 10/15/2024 9:31 PM CDT - 10/15/2024 11:59 PM CDT Hospital Encounter [address] [address] UTI symptoms Discharge Disposition: Discharge to home or self care 10/15/2024 Telephone [facility] at [address] [place] [phone] Ann Larsen NP Blood in Urine 10/15/2024 4:30 PM CDT Office Visit [facility] at [place] [address] [place] [phone] Ann Larsen NP UTI symptoms (Primary Dx); Gross hematuria 10/15/2024 Nurse Triage [facility] at [place] [address] [facility] [place] [phone] Susan Bradford RN from Last 3 Months [...] 06/16/2024 Assessment & Plan (06/16/2024 7:40 AM CEMENTER OIL WELL): Diabetic foot exam performed with monofilament, no abnormal findings Class 3 severe obesity due t o excess calories with body mass index (BMI) of 45.0 to 49.9 in adult 06/15/2024 Assessment & Plan (06/15/2024 11:19 AM CEMENT[facility] OIL WELL): Chronic, stable Encouraged to: Make healthy food choices, limiting intake of concentrated sweets, cholesterol, and saturated fat Monitor daily caloric intake and portion sizes Exercise most days of the week for a goal of at least 150 minutes of exercise per week Encounter for screening mamm ogram for malignant neoplasm of breast 07/10/2023 Elevated ALT measurement 07/10/2023 Assessment & Plan (06/15/2024 11:19 AM CEMENT[facility] OIL WELL): Chronic, stable Encouraged continued weight loss and a low-fat, low-cholesterol diet Will monitor for stability Assessment & Plan (07/10/2023 4:15 AM C[facility] OIL WELL): Chronic, recurrent, normal at last check Reviewed lab results dated 07/05/2023 Encouraged continued weight loss, low-fat, low-cholesterol diet Ordered CMP to be done prior to next visit Vitamin D deficiency 01/09/2023 Assessment & Plan (06/15/2024 11:17 AM CEMENT[facility] OIL WELL): Chronic, stable, not controlled Recommended vitamin D3 5000 IU daily with a meal Will monitor for stability Assessment & Plan (07/10/2023 4:18 AM CEMENT[facility] OIL WELL): Chronic, improved Reviewed labs dated 07/05/2023 Recommended [...] 01/09/2023 Assessment & Plan (06/15/2024 11:18 AM C[facility] OIL WELL): Chronicity unknown, normal at most recent check Will monitor for stability Assessment & Plan (07/10/2023 4:15 AM CEMENTER OIL WELL): New diagnosis, normal at most recent check [...] (10/10/2022): Added automatically from request for surgery [id number] Assessment & Plan (01/09/2023 5:21 AM CDT): Encouraged to get screening colonoscopies as recommended by crm marketing specialist. Encounter for vitamin deficiency screening 06/26 Assessment & Plan (06/27/2022 12:30 AM CEMENTER OIL WELL): Ordered vitamin-D 25 OH. Screening for deficiency anemia 06/26/2022 Assessment & Plan (06/27/2022 12:25 AM CEMENT[facility] OIL WELL): Ordered CBC. 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 Assessment & Plan (06/27/2022 12:25 AM CEMENTER OIL WELL): Chronic, stable, controlled with medication-continued on Valtrex as directed as needed, refills sent to pharmacy per request. Need for vaccination 06/26/2022 Assessment & Plan (06/27/2022 12:27 AM CEMENTER OIL WELL): Influenza vaccine given. Chronic pain of both knees 10/18/2021 Assessment & Plan (06/15/2024 11:17 AM CEMENT[facility] OIL WELL): Chronic, stable Continued on meloxicam Can refer [...] 03/09/2021 Assessment & Plan (06/15/2024 11:16 AM C[facility] OIL WELL): Chronic, uncontrolled/worsened, not on medication Discussed options for treatment, is considering Encouraged weight loss efforts Assessment & Plan (07/10/2023 4:17 AM CEMENTER OIL WELL): Chronic, stable Reviewed most recent hemoglobin A1c dated 12/17/2022 Encouraged continued weight loss Ordered CMP and hemoglobin A1c to be done prior to next Assessment & Plan (01/09/2023 5:27 AM CDT): Chronic, stable-encouraged weight loss efforts. Reviewed recent CMP and hemoglobin A1c at visit today. Assessment & Plan (06/27/2022 12:29 AM C[facility] OIL WELL): Chronic, improved with weight loss-ordered hemoglobin A1c and CMP to be done prior to next visit. Encouraged efforts at continued weight loss. Assessment & Plan (06/14/2021 3:42 PM CEMENTER OIL WELL): ha1c is 5.8 today- cont saxenda Assessment & Plan (03/09/2021 8:39 AM CDT): ha1c has decreased from 6.4>5.9- this is a tremendous improvement! Cont debra. Annual physical exam 09/22/2019 Assessment & Plan (06/15/2024 11:13 AM CEMENTER OIL WELL): Reviewed past and current medical history, surgical [...] needed. Assessment & Plan (06/14/2021 3:42 PM CEMENTER OIL WELL): Second shingrix given today Advise mrna booster in 1-2 weeks after shingrix utd on flu shot, tdap Cont to work on diet and weight loss rtc 4 months Assessment & Plan (09/22/2019 3:17 PM CEMENTER OIL WELL): Wear sunscreen while outdoors. Wear seatbelts while [...] 09/22/2019 Assessment & Plan (06/15/2024 11:14 AM C[employer] OIL WELL): Chronic, episodic, currently asymptomatic Will monitor for stability Encouraged to elevate legs when able and to wear compression socks or stockings Assessment & Plan (01/09/2023 5:33 AM CDT): Chronic, stasis-will continue to monitor for worsening symptoms or edema. Encouraged elevation of extremities when able and compression socks or stockings. Assessment & Plan (09/22/2019 3:52 PM CEMENTER OIL WELL): Work on wt loss Get up and move around while at work ,periodically Wear compression stockings when travelling long distance History of basal cell carcinoma (BCC) of skin Overview (09/22/2019): r upper arm, Dr Davis Assessment & Plan (01/09/2023 5:28 AM CDT): Encouraged to follow-up with dermatology as recommended. Assessment & Plan (09/22/2019 3:53 PM CEMENTER OIL WELL): Sunscreen Cont close surveillance with credit control clerk Non-seasonal allergic rhinitis 09/22/2018 Overview (09/22/2019): Allergic to dust and mold Assessment & Plan (06/15/2024 11:11 AM CEMENTER OIL WELL): Chronic, stable, controlled with medication Continued on Clarinex Assessment & Plan (01/09/2023 5:32 AM CDT): Chronic, stable, controlled with medication-continued on Clarinex. Assessment & Plan (09/22/2019 3:36 PM CEMENTER OIL WELL): Cont clarinex daily Mixed hyperlipidemia 09/23/2017 Assessment & Plan (06/15/2024 11:12 AM CEMENTER OIL WELL): Chronic, uncontrolled, with minimally elevated triglycerides and low HDL Continued on atorvastatin Recommended low-fat/low-cholesterol diet, high in fiber and plant protein Assessment & Plan (07/10/2023 4:16 AM CEMENTER OIL WELL): Chronic, uncontrolled, with minimally elevated triglycerides and [...] lipids. Assessment & Plan (06/27/2022 12:26 AM CEMENTER OIL WELL): Chronic, stable, with slight elevation in triglycerides at last check-continued on simvastatin. Lipid panel ordered prior to next visit. Assessment & Plan (02/23/2022 10:53 AM CDT): c Assessment & Plan (06/14/2021 3:40 PM CEMENTER OIL WELL): Suspect cholesterol will be much better, check now, dec dose if possible and recheck before our next appt in 4 months at which time I Hope to stop it Assessment & Plan (05/06/2020 3:16 PM CDT): Cont low chol diet and medication Cont to monitor liver panel Assessment & Plan (09/22/2019 3:38 PM CEMENTER OIL WELL): Take the chol pill daily in am. Lipids in 6mos Essential (primary) hypertension 09/19/2017 Assessment & Plan (06/15/2024 11:11 AM C[facility]IL WELL): Chronic, stable, controlled with medication Continued on bisoprolol Assessment & Plan (01/23/2024 12:30 PM CDT): Chronic, stable, controlled with medication Continued on bisoprolol Assessment & Plan (07/10/2023 4:15 AM CEMENTER OIL WELL): Chronic, stable, controlled with medication Continued on bisoprolol Ordered CMP be done prior to next visit Assessment & Plan (01/09/2023 5:19 AM CDT): Chronic, stable, controlled with medication-reviewed recent CMP. Continued on bisoprolol. Assessment & Plan (06/27/2022 12:28 AM CEMENTER OIL WELL): Chronic, stable, controlled with medication-continued bisoprolol. Ordered CMP to be done prior to next visit. Assessment & Plan (02/23/2022 10:52 AM CDT): Controlled on bisoprolol Assessment & Plan (06/14/2021 3:40 PM CEMENTER OIL WELL): Looking great! With weight loss, d/c hctz [...] health Assessment & Plan (09/22/2019 3:36 PM CEMENTER OIL WELL): Follow low sodium DASH Diet. Exercise regularly [...] 09/19/2017 Assessment & Plan (06/15/2024 11:13 AM CEMENTER OIL WELL): Chronic, stable, controlled without medication Will monitor for stability Assessment & Plan (01/09/2023 5:32 AM CDT): Chronic, stable, controlled without medication-will continue to monitor for worsening symptoms,if occurs and is interested, can refer for pelvic floor physical therapy, consider medication, and/or refer to tube laser operator for further evaluation and management. Personal history of colon cancer, stage II 09/19 Overview (09/22/2019): no chemo/rx, just removal of the tumors and ff up areas tatood, age 38, 3 large polyps cancerous removed. Colonoscopy 05/2010, Dr Reynolds. Assessment & Plan (01/09/2023 5:26 AM CDT): Encouraged to get screening colonoscopy as recommended by crm marketing specialist. Assessment & Plan (06/14/2021 3:41 PM CEMENTER OIL WELL): Repeat is due 11/2022 Assessment & Plan (09/22/2019 3:35 PM CEMENTER OIL WELL): Patient to check with Dr Reynolds as [...] 07/10/2023 Assessment & Plan (06/11/2023 10:35 AM CEMENTER OIL WELL): VSS (low grade temp 99.5F), NAD, lungs CTAB Sx duration 2.5 weeks approximately Recent COVID 05/23/2023 Possible bronchitis . Ddx secondary bacterial PNA post COVID Medrol dose pack Augmentin, azithromycin Tessalon as needed as cough suppressant ER for CP, SOB, vomiting, dizziness, persisting fevers Colon polyps 10/10/2022 01/09/2023 Overview (10/10/2022): Added automatically from request for surgery [id number] Encounter to establish care 06/26/2022 01/09/2023 Assessment & Plan (06/27/2022 12:30 AM CEMENTER OIL WELL): Reviewed past and current medical history, surgical [...] 01/09/2023 Assessment & Plan (06/27/2022 12:25 AM CEMENTER OIL WELL): Chronic, present in 2019 and 2020, now resolved upon most recent check, likely improved with weight loss-will continue to monitor periodically. Encouraged continued weight loss. Assessment & Plan (01/05/2021 12:36 PM CDT): On statin Has had weight gain Liver us to further investigate Croup 09/22/2019 05/05/2020 Assessment & Plan (09/22/2019 3:51 PM CEMENTER OIL WELL): Doxycycline 100mg po bid x 10d Coricidin [...] on file Legal Sex Female 6:21 AM [facility] Gender Identity Female 12/29/2020 6:34 AM CDT Sexual Orientation Straight 10/04/2020 6: 47 AM [facility] Occupation Industry Job Start Date Job End [...] Read Routine (OP Routine) 07/27/2024 1:17 PM [facility] Screening mammogram, encounter for COMPREHENSIVE METABOLIC PANEL [...] hyperlipidemia COLONOSCOPY 12/14/2022 8:07 AM CDT THINPREP IT HELP DESK ASSOCIATE PAP (IMAGE GUIDED) LIQUID-BASED PREP Routine 10/03/2017 3:52 PM [facility] from Last 3 Months or Most Recently Relevant to Health Maintenance Results * SCAN - RADIOLOGY/IMAGING (12/24/2024 9:17 PM CDT) Anatomical Region Laterality Modality Other Provider Scanning Final Result * Urine culture Urine, clean voided (10/15/2024 9:35 PM CDT) Report Final Report: Less than 100,000 colonies/mL (clinically insignificant growth based on current clinical standards) Organism (CLINICALLY INSIGNIFICANT GROWTH [facility] Urine, clean voided 10/15/2024 9:35 PM CDT 10/15/2024 9:47 PM CDT Narrative [facility] - 10/17/2024 8:33 AM CDT Testing performed by [facility] [phone]) Ann Larsen NP LAB MICROBIOLOGY - [facility] Final Result [facility] Department [place] [address] * (ABNORMAL) POCT urinalysis dipstick (10/15/2024 4:40 PM CDT) Color, Urine, POC Dark Yellow Clarity, ur, POC Turbid(A) Clear Glucose, ur, POC Negative Negative MG/DL Bilirubin, ur, POC Small Negative, Small, Moderate, Large Ketones, ur, POC Negative Negative Specific Simms, POC 1.030 1.003 - 1.030 Blood, ur, POC Large(A) Negative pH, ur, POC 5.5 5.0 - 8.0 Protein, ur, POC 300.(A) Negative Urobilinogen, urine, POC 0.2 0.2 - 1.0 mg/dL Nitrite, ur, POC Negative Negative Leukocytes, ur, POC Trace(A) Negative Lot Number [id number] Urine 10/15/2024 4:40 PM CDT us Ann Larsen NP POINT OF CARE TEST ORDERABLES F inal Result * Screening Mammogram Bilateral [place] (07/27/2024 1:17 PM C[facility] WE[facility]) Anatomical Region Laterality Modality Breast Bilateral Mammography Impressions 07/27/2024 1:29 PM C[facility] WELL BI-RADS ATLAS category (overall): 2 - Benign There is no mammographic evidence of malignancy. A 1 year screening mammogram is recommended. The patient has been or will be contacted. We recommend annual screening mammography for women at average risk of breast cancer beginning at age 40, based on guidelines of the [employer] (ACR Practice Parameter for the Performance of Screening and Diagnostic Mammography) and [employer] [employer]. For women with and elevated risk of breast cancer, please refer to the ACR Practice Parameter for specific screening recommendations. The patient will be entered into a reminder system with a target due date of 1 year for her next screening exam. Narrative 07/27/2024 1:29 PM [facility] Screening Mammogram Bilateral [place]: 07/27/24 The [...] A1C 7.0(H) <5.7 % of total Hgb [employer] Comment: For someone without known diabetes, [...] NP LAB BLOOD ORDERABLES Final Resul t [facility] Organization Address City/State/ZIP Co de Phone Number [facility] [address] [place] [address] * (ABNORMAL) Lipid panel (05/23/2024 8:50 AM CDT) Pathologist [facility] Cholesterol 171 <200 mg/dL [facility] [...] LDL-C. Justus GANDHI et al. DANGELO. 2013;310(19): 7288-4497 (http://education.Simplee.VoiceBunny/faq/XEY058) Chol/HDL ratio 3.7 <5.0 (calc) [facility] [...] NP LAB BLOOD ORDERABLES Final Resul t [employer] [facility] [address] [place] [address] * (ABNORMAL) Comprehensive metabolic panel (05/23/2024 8:50 [...] BLOOD ORDERABLES Final Resul t [facility] [address] [place] [address] * COLONOSCOPY (12/14/2022 8:07 AM CDT) Anatomical Region Laterality Modality Other Narrative Procedure Note Lamin Reynolds MD - 12/14/2022 8:07 AM CDT [facility] Patient Name: Michelle Goetz Procedure Date: 12/14/2022 8:07 AM Date of : 1965 Admit Type: Outpatient Age: 57 Gender: Female Attending MD: Lamin Reynolds M.D. Room: [facility] ENDOSCOPY ROOM 02 Note Status: Finalized [...] The scope was passed under direct vision.The [id number] was introduced through the anusand advanced to [...] On: 12/14/2022 8:07 AM Recognized by the [place] [employer] for promoting quality in endoscopy Lamin Reynolds MD ENDOSCOPY PROCEDURES Final Res ult * ThinPrep Gynecologic Pap Test (Image-guided), Liquid-based Preparation (10/03/2017 3:52 PM C[facility]IL WE[facility]) CLINICAL INFORMATION [facility] HISTORICAL RESULTS Comment:Hysterectomy LMP: HYST [facility] HISTORICAL RESULTS PREV. PAP: [facility]IST[facility]ICAL RESULTS Comment:Information not prov ided PREV. BX: [facility] HISTORICAL RESULTS Comment:Information not prov ided SOURCE: [facility]ISTORICAL RESULTS Comment:Vaginal cuff STATEMENT OF ADEQUACY: [facility] Comment:SATISFACTORY FOR PEACE LUATION INTERPRETATION/RESU LT: [facility]IST[facility]ICAL RESULTS Comment:Negative for intraep ithelial lesion or malignancy. COMMENT: [facility]IST[facility] RES[facility] Comment:This Pap test has be en evaluated with computer assisted technology. PONY RIDE OPERATOR: [facility] HISTORICAL RESULTS Comment:LMT, CT(ASCP) CT scr eening location: [place] [address] [place] [address] 10/03/2017 3:52 PM [facility] 10/12/2017 12:10 AM [facility] Narrative [facility] HISTORICAL RESULTS - 10/11/2017 11:44 PM [facility] 0 PERFORMING LAB: [facility], [facility] [place] [address] [facility] [address] Abigail Baker MD Marcia Resendiz MD LAB PATHOLOGY ORDERABLES Fin al Result [facility] HISTORICAL RESULTS from Last 3 Months or Most Recently Relevant to Health Maintenance Insurance BLUE ACCESS OOS CIGNA IBEW CIGNA IBEW BLUE ACCESS OOS Member Subscriber Plan / Payer (Ef fective 2022-Present) Name:Michelle Goetz Relation to Subscriber:Self Name:Michelle Goetz Payer ID:[id number] (NAIC) Type:ShopSocially Address: [address] [place] [id number] [facility] IBEW [employer] OOS Advance Directives For more information, please contact: [phone] * Full Code (Latest Code Status on File) Date Activated Date Inactivated Comments 12/14/2022 8:07 AM 12/14/2022 1:15 PM Care Teams Activities Director Scouting Relationship Specialty Start Date End Date Elodia Brunson NP [address] [place] [address] PCP - General Family Practice 06/22/22
== END 2025-01-04 14:53 | disposition home or self-care (01) ==
PROVIDERS: PCP Family Medicine; Visit Provider Urology
DX: N20.0 Calculus of kidney (principal)
CPT/HCPCS: 74018

== ENCOUNTER 2025-01-12 14:40 | Outpatient (CLI) | payer BC, OTHER, SELFPAY ==
--- NOTE | ~2025-01-12 | XR_ITS ---
Supine and upright views of the abdomen Clinical history: Kidney stone COMPARISON: 01/04/2025 Findings: Bowel gas pattern is nonspecific. No evidence for obstruction or free air. Left ureteral st ent in place. Stable large stones at the left renal pelvis region. Osseous structures are intact. Impression: Stable large stones the left renal pelvis region with left ureteral stent. Reviewed, dictated and finalized at [facility]. Impression: Stable large stones the left renal pelvis region with left ureteral stent.
--- OUTSIDE RECORDS SUMMARY | 2025-01-12 16:08 | XMS_ITS | Clinical Summary ---
Author Organization [facility] Address [address] [place] [address] Care Team Providers Care Director Underwriter Sales Name Role Phone Unavailable Primary Care Provider Unavailabl e Source Comments [facility],non-owned Affiliates and Associated Physician Practices is amultiple site organization consisting of ambulatory clinics and hospital sitesin [place], [place], [place] and [place]. This disclosure is being madepursuant to the Care Everywhere program and may not contain all information available regarding this patient. Last updated 18.[facility] [employer] Social History Tobacco Use Types Packs/Day [...] Goetz Payer ID:[id number] (NAIC) Type:O Address: [address] [place] Member Subscriber Plan / Payer (Ef fective 2013-Present) Name:Michelle Goetz Relation to Subscriber:Self Name:Michelle Goetz Payer ID:[id number] (NAIC) Type:PPO Address: [facility] [id number] [place] [id number]
--- OUTSIDE RECORDS SUMMARY | 2025-01-12 16:08 | XMS_ITS | Continuity of Care Document ---
Author Organization [facility] Address [address] [place] [address] Phone Care Team Providers Care Wastewater Supervisor Name Role Phone Carmina Marmolejo MD Unavailable [...] Providers Copied on Encounter [facility], [address] [place] [address], [address], [place] tel:[phone] [facility] No Information [address] [place]. [address] [place], [place], [id number] . tel:[phone] [facility], [address], [place], [address], [place] tel:[phone] [facility] No Information [address] [place], [place], [place], [id number] . tel: [phone] OFFICE/OUTPA TIENT VISIT NEW [facility], [address], [place], [address], [place] tel:[phone] [facility] Body mass index [BMI] 45.0-49.9, adultPain in left kneePain in right kneePrimary osteoarthritis of right kneePrimary osteoarthritis of left knee [address] [place]. [address], [place], [place], [id number] . tel: [phone] Referring Provider: Elodia Mckenzie, [address] [place] [address], [place], [address]. tel:[phone] Family History Family Member Type Diagnosis Age At Onset Mother Problem Cardiovascular disease Payers Payer name Insurance type Covered constitution party ID Authoriza viki(s) Blue Access PPO E2 OT [id number] Cigna - IBEW Local 1 OT [id number] Social History Type Description Quantity Date Captured [...] Lab Order Basic Me tabolic Panel (8) ([id number]), Ordered on: Ordered Future Order: Lab Order CBC, Marilynn telet; No Differential ([id number]), Ordered on: Ordered History Of Present Illness [...]
--- OUTSIDE RECORDS SUMMARY | 2025-01-12 16:08 | XMS_ITS | Encounter Summary ---
Author Organization [facility] Address [address] [facility] [place] [address] Care Team Providers Care Cotton Gin Yard Supervisor Name Role Phone Unavailable Primary Care Provider Unavailabl e Encounter Details Date Type Department Care Team (Late st Contact Info) Description 01/06/2024 Lab Requisition [facility] - DermPath Lab [address] [facility] [place] [phone] Lupe Davis DO [address] [facility] [address] [place] [address] Social History Tobacco Use Types Packs/Day Years [...] PM CDT) Case Report Dermatopathology Report Case: [id number] Authorizing Provider: Lupe Davis DO Collected: 01/06/2024 02:32 PM Ordering Location: [facility] - Received: 01/07/2024 01:01 PM [...] characteristic determined by the Dermatopathology Laboratory at [facility], directed by Dr. Verónica Mendoza. These tests need not be, and therefore are not, approved by the [place] Food and Drug Administration. The tests are used for clinical purposes. Billing Codes Specimen Charges Stain Charges 96683 [id number] [id number] 1 1 1 4 2:50 PM CDT [...] - PATHOLOGY/CYTOLOGY ORDERABLES Final Result DERMATOPATHOLOGY LABORATORY [facility] - Department of Dermatology [facility] [address] [place] [address], [address] [phone] documented in this encounter Visit Diagnoses Not on filedocumented in this encounter
--- OUTSIDE RECORDS SUMMARY | 2025-01-12 16:08 | XMS_ITS | Clinical Summary ---
Author Organization [facility] Address [address] [place] [address] Care Team Providers Care Civil Manager Name Role Phone Elodia Brunson NP Primary Care Provider [phone] Allergies No known active allergies Medications meloxicam [...] 06/16/2024 Assessment & Plan (06/16/2024 7:40 AM FRAMING MILL OPERATOR HELPER): Diabetic foot exam performed with monofilament, no abnormal findings Class 3 severe obesity due t o excess calories with body mass index (BMI) of 45.0 to 49.9 in adult 06/15/2024 Assessment & Plan (06/15/2024 11:19 AM FRAMING MILL OPERATOR HELPER): Chronic, stable Encouraged to: Make healthy food choices, limiting intake of concentrated sweets, cholesterol, and saturated fat Monitor daily caloric intake and portion sizes Exercise most days of the week for a goal of at least 150 minutes of exercise per week Encounter for screening mamm ogram for malignant neoplasm of breast 07/10/2023 Elevated ALT measurement 07/10/2023 Assessment & Plan (06/15/2024 11:19 AM FRAMING MILL OPERATOR HELPER): Chronic, stable Encouraged continued weight loss and a low-fat, low-cholesterol diet Will monitor for stability Assessment & Plan (07/10/2023 4:15 AM FRAMING MILL OPERATOR HELPER): Chronic, recurrent, normal at last check Reviewed lab results dated 07/05/2023 Encouraged continued weight loss, low-fat, low-cholesterol diet Ordered CMP to be done prior to next visit Vitamin D deficiency 01/09/2023 Assessment & Plan (06/15/2024 11:17 AM FRAMING MILL OPERATOR HELPER): Chronic, stable, not controlled Recommended vitamin D3 5000 IU daily with a meal Will monitor for stability Assessment & Plan (07/10/2023 4:18 AM FRAMING MILL OPERATOR HELPER): Chronic, improved Reviewed labs dated 07/05/2023 Recommended [...] 01/09/2023 Assessment & Plan (06/15/2024 11:18 AM FRAMING MILL OPERATOR HELPER): Chronicity unknown, normal at most recent check Will monitor for stability Assessment & Plan (07/10/2023 4:15 AM FRAMING MILL OPERATOR HELPER): New diagnosis, normal at most recent check [...] (10/10/2022): Added automatically from request for surgery [id number] Assessment & Plan (01/09/2023 5:21 AM CDT): Encouraged to get screening colonoscopies as recommended by real estate agency principal. Encounter for vitamin deficiency screening 06/26 Assessment & Plan (06/27/2022 12:30 AM FRAMING MILL OPERATOR HELPER): Ordered vitamin-D 25 OH. Screening for deficiency anemia 06/26/2022 Assessment & Plan (06/27/2022 12:25 AM FRAMING MILL OPERATOR HELPER): Ordered CBC. 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 Assessment & Plan (06/27/2022 12:25 AM FRAMING MILL OPERATOR HELPER): Chronic, stable, controlled with medication-continued on Valtrex as directed as needed, refills sent to pharmacy per request. Need for vaccination 06/26/2022 Assessment & Plan (06/27/2022 12:27 AM FRAMING MILL OPERATOR HELPER): Influenza vaccine given. Chronic pain of both knees 10/18/2021 Assessment & Plan (06/15/2024 11:17 AM FRAMING MILL OPERATOR HELPER): Chronic, stable Continued on meloxicam Can refer [...] 03/09/2021 Assessment & Plan (06/15/2024 11:16 AM FRAMING MILL OPERATOR HELPER): Chronic, uncontrolled/worsened, not on medication Discussed options for treatment, is considering Encouraged weight loss efforts Assessment & Plan (07/10/2023 4:17 AM FRAMING MILL OPERATOR HELPER): Chronic, stable Reviewed most recent hemoglobin A1c dated 12/17/2022 Encouraged continued weight loss Ordered CMP and hemoglobin A1c to be done prior to next Assessment & Plan (01/09/2023 5:27 AM CDT): Chronic, stable-encouraged weight loss efforts. Reviewed recent CMP and hemoglobin A1c at visit today. Assessment & Plan (06/27/2022 12:29 AM FRAMING MILL OPERATOR HELPER): Chronic, improved with weight loss-ordered hemoglobin A1c and CMP to be done prior to next visit. Encouraged efforts at continued weight loss. Assessment & Plan (06/14/2021 3:42 PM FRAMING MILL OPERATOR HELPER): ha1c is 5.8 today- cont saxenda Assessment & Plan (03/09/2021 8:39 AM CDT): ha1c has decreased from 6.4>5.9- this is a tremendous improvement! Cont debra. Annual physical exam 09/22/2019 Assessment & Plan (06/15/2024 11:13 AM FRAMING MILL OPERATOR HELPER): Reviewed past and current medical history, surgical [...] needed. Assessment & Plan (06/14/2021 3:42 PM FRAMING MILL OPERATOR HELPER): Second shingrix given today Advise mrna booster in 1-2 weeks after shingrix utd on flu shot, tdap Cont to work on diet and weight loss rtc 4 months Assessment & Plan (09/22/2019 3:17 PM FRAMING MILL OPERATOR HELPER): Wear sunscreen while outdoors. Wear seatbelts while [...] 09/22/2019 Assessment & Plan (06/15/2024 11:14 AM FRAMING MILL OPERATOR HELPER): Chronic, episodic, currently asymptomatic Will monitor for stability Encouraged to elevate legs when able and to wear compression socks or stockings Assessment & Plan (01/09/2023 5:33 AM CDT): Chronic, stasis-will continue to monitor for worsening symptoms or edema. Encouraged elevation of extremities when able and compression socks or stockings. Assessment & Plan (09/22/2019 3:52 PM FRAMING MILL OPERATOR HELPER): Work on wt loss Get up and move around while at work ,periodically Wear compression stockings when travelling long distance History of basal cell carcinoma (BCC) of skin Overview (09/22/2019): r upper arm, Dr Davis Assessment & Plan (01/09/2023 5:28 AM CDT): Encouraged to follow-up with dermatology as recommended. Assessment & Plan (09/22/2019 3:53 PM FRAMING MILL OPERATOR HELPER): Sunscreen Cont close surveillance with certified nurse Non-seasonal allergic rhinitis 09/22/2018 Overview (09/22/2019): Allergic to dust and mold Assessment & Plan (06/15/2024 11:11 AM FRAMING MILL OPERATOR HELPER): Chronic, stable, controlled with medication Continued on Clarinex Assessment & Plan (01/09/2023 5:32 AM CDT): Chronic, stable, controlled with medication-continued on Clarinex. Assessment & Plan (09/22/2019 3:36 PM FRAMING MILL OPERATOR HELPER): Cont clarinex daily Mixed hyperlipidemia 09/23/2017 Assessment & Plan (06/15/2024 11:12 AM FRAMING MILL OPERATOR HELPER): Chronic, uncontrolled, with minimally elevated triglycerides and low HDL Continued on atorvastatin Recommended low-fat/low-cholesterol diet, high in fiber and plant protein Assessment & Plan (07/10/2023 4:16 AM FRAMING MILL OPERATOR HELPER): Chronic, uncontrolled, with minimally elevated triglycerides and [...] lipids. Assessment & Plan (06/27/2022 12:26 AM FRAMING MILL OPERATOR HELPER): Chronic, stable, with slight elevation in triglycerides at last check-continued on simvastatin. Lipid panel ordered prior to next visit. Assessment & Plan (02/23/2022 10:53 AM CDT): c Assessment & Plan (06/14/2021 3:40 PM FRAMING MILL OPERATOR HELPER): Suspect cholesterol will be much better, check now, dec dose if possible and recheck before our next appt in 4 months at which time I Hope to stop it Assessment & Plan (05/06/2020 3:16 PM CDT): Cont low chol diet and medication Cont to monitor liver panel Assessment & Plan (09/22/2019 3:38 PM FRAMING MILL OPERATOR HELPER): Take the chol pill daily in am. Lipids in 6mos Essential (primary) hypertension 09/19/2017 Assessment & Plan (06/15/2024 11:11 AM FRAMING MILL OPERATOR HELPER): Chronic, stable, controlled with medication Continued on bisoprolol Assessment & Plan (01/23/2024 12:30 PM CDT): Chronic, stable, controlled with medication Continued on bisoprolol Assessment & Plan (07/10/2023 4:15 AM FRAMING MILL OPERATOR HELPER): Chronic, stable, controlled with medication Continued on bisoprolol Ordered CMP be done prior to next visit Assessment & Plan (01/09/2023 5:19 AM CDT): Chronic, stable, controlled with medication-reviewed recent CMP. Continued on bisoprolol. Assessment & Plan (06/27/2022 12:28 AM FRAMING MILL OPERATOR HELPER): Chronic, stable, controlled with medication-continued bisoprolol. Ordered CMP to be done prior to next visit. Assessment & Plan (02/23/2022 10:52 AM CDT): Controlled on bisoprolol Assessment & Plan (06/14/2021 3:40 PM FRAMING MILL OPERATOR HELPER): Looking great! With weight loss, d/c hctz [...] health Assessment & Plan (09/22/2019 3:36 PM FRAMING MILL OPERATOR HELPER): Follow low sodium DASH Diet. Exercise regularly [...] 09/19/2017 Assessment & Plan (06/15/2024 11:13 AM FRAMING MILL OPERATOR HELPER): Chronic, stable, controlled without medication Will monitor for stability Assessment & Plan (01/09/2023 5:32 AM CDT): Chronic, stable, controlled without medication-will continue to monitor for worsening symptoms,if occurs and is interested, can refer for pelvic floor physical therapy, consider medication, and/or refer to lacing string cutter for further evaluation and management. Personal history of colon cancer, stage II 09/19 Overview (09/22/2019): no chemo/rx, just removal of the tumors and ff up areas carly, age 38, 3 large polyps cancerous removed. Colonoscopy 05/2010, Dr Reynolds. Assessment & Plan (01/09/2023 5:26 AM CDT): Encouraged to get screening colonoscopy as recommended by real estate agency principal. Assessment & Plan (06/14/2021 3:41 PM FRAMING MILL OPERATOR HELPER): Repeat is due 11/2022 Assessment & Plan (09/22/2019 3:35 PM FRAMING MILL OPERATOR HELPER): Patient to check with Dr Reynolds as [...] 07/10/2023 Assessment & Plan (06/11/2023 10:35 AM FRAMING MILL OPERATOR HELPER): VSS (low grade temp 99.5F), NAD, lungs CTAB Sx duration 2.5 weeks approximately Recent COVID 05/23/2023 Possible bronchitis . Ddx secondary bacterial PNA post COVID Medrol dose pack Augmentin, azithromycin Tessalon as needed as cough suppressant ER for CP, SOB, vomiting, dizziness, persisting fevers Colon polyps 10/10/2022 01/09/2023 Overview (10/10/2022): Added automatically from request for surgery [id number] Encounter to establish care 06/26/2022 01/09/2023 Assessment & Plan (06/27/2022 12:30 AM FRAMING MILL OPERATOR HELPER): Reviewed past and current medical history, surgical [...] 01/09/2023 Assessment & Plan (06/27/2022 12:25 AM FRAMING MILL OPERATOR HELPER): Chronic, present in 2019 and 2020, now resolved upon most recent check, likely improved with weight loss-will continue to monitor periodically. Encouraged continued weight loss. Assessment & Plan (01/05/2021 12:36 PM CDT): On statin Has had weight gain Liver us to further investigate Croup 09/22/2019 05/05/2020 Assessment & Plan (09/22/2019 3:51 PM FRAMING MILL OPERATOR HELPER): Doxycycline 100mg po bid x 10d Coricidin HBP or guaifenesin DM ok to take for the cough Rest and hydrate Call if high fever, sob, worsening sx Encounters Date Type Department Care Team Description 01/07/2025 Orders Only [facility] [address] [place] [address] Elodia Brunson, DM 12/24/2024 Orders Only [facility] [address] [place] [address] Scanning, Provider 10/21/2024 Telephone [facility] Primary Care at [address] [phone] Elodia Brunson COMMERCIAL ILLUSTRATOR 10/20/2024 Telephone [facility] Primary Care at [address] [phone] Elodia Brunson NP Recommendation Request 10/16/2024 Results Follow-Up [facility] at [address] [phone] Ann Larsen NP Urine culture Urine, clean voided 10/15/2024 9:31 PM CDT - 10/15/2024 11:59 PM CDT Hospital Encounter [address] [address] UTI symptoms Discharge Disposition: Discharge to home or self care 10/15/2024 4:30 PM CDT Office Visit [facility] at [address] [phone] Ann Larsen NP UTI symptoms (Primary Dx); Gross hematuria 10/15/2024 Telephone [facility] at [address] [phone] Ann Larsen NP Blood in Urine 10/15/2024 Nurse Triage [facility] at [address] [place] [address] Susan Bradford RN from Last [...] Added automatica lly from request for surgery [id number] Scalp lesion 03/09/2021 Transaminitis 01/05/2021 Left leg [...] on file Legal Sex Female 6:21 AM FRAMING MILL OPERATOR HELPER Gender Identity Female 12/29/2020 6:34 AM CDT Sexual Orientation Straight 10/04/2020 6: 47 AM FRAMING MILL OPERATOR HELPER Occupation Industry Job Start Date Job End [...] Date/Time Associated Diagnosis Comments SCAN - RADIOLOGY/IMAGING 01/07/2025 9:17 PM CDT SCAN - RADIOLOGY/IMAGING 12/24/2024 9:17 PM CDT URINE CULTURE Routine 10/15/2024 9:35 PM CDT UTI symptoms POCT URINALYSIS DIPSTICK Routine 10/15/2024 4:40 PM CDT UTI symptoms SCREENING MAMMOGRAM BILATERAL W [place] Schedule Routine, Read Routine (OP Routine) 07/27/2024 1:17 PM FRAMING MILL OPERATOR HELPER Screening mammogram, encounter for COMPREHENSIVE METABOLIC PANEL [...] hyperlipidemia COLONOSCOPY 12/14/2022 8:07 AM CDT THINPREP YARN CONDITIONER PAP (IMAGE GUIDED) LIQUID-BASED PREP Routine 10/03/2017 3:52 PM FRAMING MILL OPERATOR HELPER from Last 3 Months or Most Recently Relevant to Health Maintenance Results * SCAN - RADIOLOGY/IMAGING (01/07/2025 9:17 PM CDT) Anatomical Region Laterality Modality Other Elodia Brunson NP Final Result * SCAN - RADIOLOGY/IMAGING (12/24/2024 9:17 PM CDT) Anatomical Region Laterality Modality Other us Provider Scanning Final Result * Urine culture Urine, clean voided (10/15/2024 9:35 PM CDT) Report Final Report: Less than 100,000 colonies/mL (clinically insignificant growth based on current clinical standards) Organism (CLINICALLY INSIGNIFICANT GROWTH [facility] Urine, clean voided 10/15/2024 9:35 PM CDT 10/15/2024 9:47 PM CDT Narrative [facility] - 10/17/2024 8:33 AM CDT Testing performed by [facility] [phone]) Ann Larsen NP LAB MICROBIOLOGY - GENERAL ORDAlfonzo [facility] Final Result [facility] Department [place] [address] * (ABNORMAL) POCT urinalysis dipstick (10/15/2024 4:40 PM CDT) Color, Urine, POC Dark Yellow Clarity, ur, POC Turbid(A) Clear Glucose, ur, POC Negative Negative MG/DL Bilirubin, ur, POC Small Negative, Small, Moderate, Large Ketones, ur, POC Negative Negative Specific [place], POC 1.030 1.003 - 1.030 Blood, ur, POC Large(A) Negative pH, ur, POC 5.5 5.0 - 8.0 Protein, ur, POC 300.(A) Negative Urobilinogen, urine, POC 0.2 0.2 - 1.0 mg/dL Nitrite, ur, POC Negative Negative Leukocytes, ur, POC Trace(A) Negative Lot Number [id number] Urine 10/15/2024 4:40 PM CDT Ann Larsen NP POINT OF CARE TEST ORDERABLES F inal Result * Screening Mammogram Bilateral [place] (07/27/2024 1:17 PM FRAMING MILL OPERATOR HELPER) Anatomical Region Laterality Modality Breast Bilateral Mammography Impressions 07/27/2024 1:29 PM FRAMING MILL OPERATOR HELPER BI-RADS ATLAS category (overall): 2 - Benign There is no mammographic evidence of malignancy. A 1 year screening mammogram is recommended. The patient has been or will be contacted. We recommend annual screening mammography for women at average risk of breast cancer beginning at age 40, based on guidelines of the [employer] (ACR Practice Parameter for the Performance of Screening and Diagnostic Mammography) and [employer]. For women with and elevated risk of breast cancer, please refer to the ACR Practice Parameter for specific screening recommendations. The patient will be entered into a reminder system with a target due date of 1 year for her next screening exam. Narrative 07/27/2024 1:29 PM FRAMING MILL OPERATOR HELPER Screening Mammogram Bilateral W [place]: 07/27/24 The [...] A1C 7.0(H) <5.7 % of total Hgb [facility] Comment: For someone without known [...] ORDERABLES Final Resul t Performing Organization Address [facility] Co de Phone Number [facility] [address] [place] [address] * (ABNORMAL) Lipid panel (05/23/2024 8:50 AM CDT) [facility] Cholesterol 171 <200 mg/dL [facility] [...] LDL-C. Justus SS et al. DANGELO. 2013;310(19): 8776-3281 (http://education.MacuCLEAR/faq/RGU677) Chol/HDL ratio 3.7 <5.0 (calc) [facility] [...] BLOOD ORDERABLES Final Resul t [facility] [address] [address] * (ABNORMAL) Comprehensive metabolic panel (05/23/2024 8:50 [...] ORDERABLES Final Resul t [facility] [address] [phone] * COLONOSCOPY (12/14/2022 8:07 AM CDT) Anatomical Region Laterality Modality Other Narrative Procedure Note Lamin Reynolds MD - 12/14/2022 8:07 AM CDT [facility] Patient Name: Madhavi Goetz Procedure Date: 12/14/2022 8:07 AM Date of : 1965 Admit Type: Outpatient Age: 57 Gender: Female Attending MD: Lamin Reynolds M.D. Room: [facility] ENDOSCOPY ROOM 02 Note Status: Finalized Procedure: [...] The scope was passed under direct vision.The [id number] was introduced through the anusand advanced to [...] On: 12/14/2022 8:07 AM Recognized by the [employer] for promoting quality in endoscopy us Lamin Reynolds MD ENDOSCOPY PROCEDURES Final Res ult * ThinPrep Gynecologic Pap Test (Image-guided), Liquid-based Preparation (10/03/2017 3:52 PM FRAMING MILL OPERATOR HELPER) [facility] HISTORICAL RESULTS [...] be en evaluated with computer assisted technology. PUTTY AND PATCH WORKER: [facility] HISTORICAL RESULTS Comment:LMT, CT(ASCP) CT scr eening location: [place] [address] [place] [address] 10/03/2017 3:52 PM FRAMING MILL OPERATOR HELPER 10/12/2017 12:10 AM FRAMING MILL OPERATOR HELPER Narrative [facility] HISTORICAL RESULTS - 10/11/2017 11:44 PM FRAMING MILL OPERATOR HELPER 0 PERFORMING LAB: [facility] [address] [facility] [phone] Abigail Baker MD Marcia Resendiz MD LAB PATHOLOGY ORDERABLES Fin al Result [facility] HISTORICAL RESULTS from Last 3 Months or Most Recently Relevant to Health Maintenance Insurance [employer] OOS CIGNA IBEW CIGNA IBEW BLUE ACCESS OOS CIGNA IBEW BLUE ACCESS OOS Advance Directives For more information, please contact: [phone] * Full Code (Latest Code Status on File) Date Activated Date Inactivated Comments 12/14/2022 8:07 AM 12/14/2022 1:15 PM Care Teams Civil Manager Relationship Specialty Start Date End Date Elodia Brunson NP [address] [place] [id number] PCP - General Family Practice 06/22/22
--- OUTSIDE RECORDS SUMMARY | 2025-01-12 16:08 | XMS_ITS | Encounter Summary ---
Author Organization [facility] Address [address] [place] [address] Care Team Providers Care Etl Informatica Architect Name Role Phone Unavailable Primary Care Provider Unavailabl e Encounter Details Date Type Department Care Team (Late st Contact Info) Description 08/15/2020 Lab Requisition [facility] DermPath Lab [address] [facility] [place] [address] Lupe Davis DO [address] [facility] [address] [place] [address] Social History Tobacco Use Types Packs/Day Years [...] Comments DERMATOPATHOLOGY Routine 08/11/2020 12:0 0 AM FOOT MITER OPERATOR documented in this encounter Results * DERMATOPATHOLOGY (08/11/2020 12:00 AM FOOT MITER OPERATOR) Case Report Dermatopathology Report Case: [id number] Authorizing Provider: Lupe Davis DO Collected: 08/11/2020 12:00 AM Ordering Location: [facility] Care DermPath Lab Received: 08/15/2020 10:19 AM Pathologist: Jc Mendoza MD Specimen: Skin, right posterior ankle 1:33 PM FOOT MITER OPERATOR DERMATOPATHOLOGY LABORATORY Final Diagnosis Specimen A. SKIN, right posterior ankle: BASAL CELL CARCINOMA, SUPERFICIAL MULTIFOCAL (C44.712) 1:33 PM FOOT MITER OPERATOR DERMATOPATHOLOGY LABORATORY at 1333 FOOT MITER OPERATOR Clinical History R/O NMSC vs LPLK, non-healing. 1 1:33 PM FOOT MITER OPERATOR DERMATOPATHOLOGY LABORATORY Gross Description Specimen A: Received is one formalin filled container labeled with the patient's name and designated right posterior ankle. The specimen consists of a shave measuring [id number]. Jar 0. 1 1:33 PM FOOT MITER OPERATOR DERMATOPATHOLOGY LABORATORY Microscopic Description Specimen A. SKIN, right posterior ankle: Attached to the undersurface of the epidermis, there are small aggregates of basaloid cells with a high nuclear to cytoplasmic ratio and peripheral palisading. 1 1:33 PM FOOT MITER OPERATOR DERMATOPATHOLOGY LABORATORY Disclaimer An external and internal positive and negative controls are appropriate for the histochemical, immunohistochemical and immunofluorescence stain(s) in this case (if any), except where stated explicitly. The performance characteristics of the stain(s) cited in this report were developed and its performance characteristic determined by the Dermatopathology Laboratory at [facility], directed by Dr. Verónica Mendoza. These tests need not be, and therefore are not, approved by the [place] Food and Drug Administration. The tests are used for clinical purposes. Billing Codes Specimen Charges Stain Charges 95171 1 1 1:33 PM FOOT MITER OPERATOR DERMATOPATHOLOGY LABORATORY Embedded Images 1 1:33 PM FOOT MITER OPERATOR DERMATOPATHOLOGY LABORATORY Pathology/Cytolog y TISSUE SPECIMEN FROM SKIN / Unknown 08/11/2020 08/15/2020 10:19 AM FOOT MITER OPERATOR Lupe Davis DO LAB - PATHOLOGY/CYTOLOGY ORDERABLES Final Result DERMATOPATHOLOGY LABORATORY [facility] - Department of Dermatology [address] [place] [address], [facility] [phone] documented in this encounter Visit Diagnoses Not on filedocumented in this encounter
--- OUTSIDE RECORDS SUMMARY | 2025-01-12 16:08 | XMS_ITS | Encounter Summary ---
Author Organization [facility] Healthcare Address [address] [place] [address] Care Team Providers Care Tank Tester Name Role Phone Elodia Brunson NP Primary Care Provider [phone] Encounter Details Date Type Department Care Team ([facility] st Contact Info) Description 01/07/2025 Orders Only [facility] Health Information Management [address] [place] [address] Elodia Brunson ELECTRONIC EQUIPMENT TRADES WORKER [address] [address] Social History Tobacco Use Types Packs/Day Years Used Date Smoking Tobacco: Never Smokeless Tobacco: Never Alcohol Use Standard Drinks/Week Comments Yes 0 [...] on file Legal Sex Female 6:21 AM PERFORMANCE INSTRUCTOR Gender Identity Female 12/29/2020 6:34 AM CDT Sexual Orientation Straight 10/04/2020 6: 47 AM PERFORMANCE INSTRUCTOR Occupation Industry Job Start Date Job End Date Not on file Not on file Not on file Not on file documented as of this encounter Plan of Treatment Not on file documented as of this encounter Procedures Procedure Name Priority Date/Time Associated Diagnosis Comments SCAN - RADIOLOGY/IMAGING 01/07/2025 9:17 PM CDT documented in this encounter Results * SCAN - RADIOLOGY/IMAGING (01/07/2025 9:17 PM CDT) Anatomical Region Laterality Modality Other Elodia Brunson NP Final Result documented in this encounter Visit Diagnoses Not on filedocumented in this encounter Care Teams Tank Tester Relationship Specialty Start Date End Date Elodia Brunson, ELECTRONIC EQUIPMENT TRADES WORKER [address] [place] [phone] PCP - General Family Practice 06/22/22 documented as of this encounter
--- OUTSIDE RECORDS SUMMARY | 2025-01-12 16:08 | XMS_ITS | Encounter Summary ---
Author Organization [facility] Facility Care Team Providers Care Hotel Manager Name Role Phone Matilde Vizcaino MD Primary Care Provider [phone] Meme Velazquez MD Primary Care Provider [phone] Christine Daugherty NP Primary Care Provider + [phone] Elodia Brunson DIRECTOR OF HEMOPHILIA Primary Care Provider [phone] Unknown, Notinfile Primary Care Provider Unavail able Elodia Brunson DIRECTOR OF HEMOPHILIA Primary Care Provider [phone] Encounter Details Date Type Department Care Team (Latest Contact Info) Description 09/13/2016 Orders Only [facility] Provider, MD Shabbir [address] [place] [address] Social History Tobacco Use Types Packs/Day Years Used Date Smoking Tobacco: Never Assessed Comments Unknown Sex and Gender Information Value Date Recorded Sex Assigned at Not on file Legal Sex Female 6:21 AM GUN CLUB MANAGER Gender Identity Female 12/29/2020 6:34 AM CDT Sexual Orientation Straight 10/04/2020 6: 47 AM GUN CLUB MANAGER documented as of this encounter Plan of Treatment Not on file documented as of this encounter Procedures Procedure Name Priority Date/Time Associated Diagnosis Comments COLONOSCOPY - SCAN 09/13/2016 12 :00 AM GUN CLUB MANAGER documented in this encounter Results * COLONOSCOPY - SCAN (09/13/2016 12:00 AM GUN CLUB MANAGER) Narrative 09/13/2016 12:00 AM GUN CLUB MANAGER Ordered by an unspecified provider. us Historical Provider Final Res ult documented in this encounter Visit Diagnoses Not on filedocumented in this encounter Care Teams Hotel Manager Relationship Specialty Start Date End Date Matilde Vizcaino MD [address] [place] [address] [phone] PCP - General 11/13/17 01/05/21 Meme Velazquez MD [address] [place] [address] [phone] PCP - General Internal Medicine 01/06/21 04/18/22 Christine Daugherty NP [address] [place] [address] [phone] PCP - General Internal Medicine 04/19/22 04/26/22 Elodia Brunson NP [address] [place] [phone] PCP - General Family Practice 04/30/22 05/06/22 Unknown, Notinfile PCP - General 06/14/22 06/21/22 Elodia Brunson DIRECTOR OF HEMOPHILIA [address] [place] [phone] PCP - General Family Practice 06/22/22 documented as of this encounter
--- OUTSIDE RECORDS SUMMARY | 2025-01-12 16:08 | XMS_ITS | Encounter Summary ---
Author Organization [facility] Address [address] [place] [address] Care Team Providers Care Global Regulatory Lead Name Role Phone Unavailable Primary Care Provider Unavailabl e Encounter Details Date Type Department Care Team (Late st Contact Info) Description 01/25/2020 Lab Requisition [facility] DermPath Lab [address] [facility], [facility] [place] [address] Lupe Davis DO [address] [facility] [address] [place] [address] Social History Tobacco Use Types Packs/Day Years [...] AM CDT) Case Report Dermatopathology Report Case: [id number] Authorizing Provider: Lupe Davis DO Collected: 01/21/2020 12:00 AM Ordering Location: [facility] DermPath Lab Received: 01/25/2020 12:04 [...] The specimen consists of a shave measuring [id number]. Jar 0. 0 4:32 PM CDT DERMATOPATHOLOGY [...] determined by the Dermatopathology Laboratory at [facility], directed by Dr. Verónica Mendoza. These tests need not be, and therefore are not, approved by the [place] Food and Drug Administration. The tests are used for clinical purposes. Billing Codes Specimen Charges Stain Charges 33849 1 0 4:32 PM CDT DERMATOPATHOLOGY LABORATORY Embedded Images 0 4:32 PM CDT DERMATOPATHOLOGY LABORATORY Pathology/Cytolog y TISSUE SPECIMEN FROM SKIN / Unknown 01/21/2020 01/25/2020 12:04 PM CDT us Lupe Davis DO LAB - PATHOLOGY/CYTOLOGY ORDERABLES Final Result DERMATOPATHOLOGY LABORATORY [facility] - Department of Dermatology [employer] [place] [address], [facility] [phone] documented in this encounter Visit Diagnoses Not on filedocumented in this encounter
--- OUTSIDE RECORDS SUMMARY | 2025-01-12 16:08 | XMS_ITS | Encounter Summary ---
Author Organization [facility] Address [address] [facility] [place] [address] Care Team Providers Care Match Up Worker Name Role Phone Unavailable Primary Care Provider Unavailabl e Encounter Details Date Type Department Care Team (Late st Contact Info) Description 07/23/2019 Lab Requisition [facility] Care DermPath Lab [address] [facility], [facility] [place] [address] Lupe Davis DO [address] [facility] [address] [place] [address] Social History Tobacco Use Types Packs/Day Years [...] Comments DERMATOPATHOLOGY Routine 07/22/2019 12:0 0 AM INSULATION BLANKET MAKER documented in this encounter Results * DERMATOPATHOLOGY (07/22/2019 12:00 AM INSULATION BLANKET MAKER) Case Report Dermatopathology Report Case: [id number] Authorizing Provider: Lupe Davis DO Collected: 07/22/2019 12:00 AM Ordering Location: [facility] Care DermPath Lab Received: 07/23/2019 08:39 AM Pathologist: Kailey Hernadez MD Specimen: Skin, right upper arm 9 1:54 PM INSULATION BLANKET MAKER DERMATOPATHOLOGY LABORATORY Final Diagnosis Specimen A. SKIN, right upper arm: DERMAL SCAR RESIDUAL BASAL CELL CARCINOMA NOT IDENTIFIED (L90.5) 9 1:54 PM INSULATION BLANKET MAKER DERMATOPATHOLOGY LABORATORY at [address]4 INSULATION BLANKET MAKER Clinical History R/O BCC, superficial multifocal type. Bx proven [id number]. 1:54 PM [facility] DERMATOPATHOLOGY LABORATORY Gross Description Specimen A: Received is one formalin filled container labeled with the patient's name and designated right upper arm. The specimen consists of an ellipse measuring [id number] and is oriented with the notch at [...] determined by the Dermatopathology Laboratory at [facility], directed by Dr. Verónica Mendoza. These tests need not be, and therefore are not, approved by the [place] Food and Drug Administration. The tests are used for clinical purposes. Billing Codes Specimen Charges Stain Charges 89084 1 9 1:54 PM [facility] DERMATOPATHOLOGY LABORATORY Embedded Images 1:54 PM [facility] DERMATOPATHOLOGY LABORATORY Pathology/Cytolog y TISSUE SPECIMEN FROM SKIN / Unknown 07/22/2019 07/23/2019 8:39 AM [facility] us Lupe Davis DO LAB - PATHOLOGY/CYTOLOGY ORDERABLES Final Result DERMATOPATHOLOGY LABORATORY [facility] - Department of Dermatology [address] [facility] [place] [address], [facility] [phone] documented in this encounter Visit Diagnoses Not on filedocumented in this encounter
--- OUTSIDE RECORDS SUMMARY | 2025-01-12 16:08 | XMS_ITS | Clinical Summary ---
Author Organization [facility] Address [address] [place] [address] Care Team Providers Care Flexographic Press Helper Name Role Phone Unavailable Primary Care Provider Unavailabl e Immunizations Immunization Administration Dates Next Due Covid-19, Mrna, Lnp-s, Pf, 30 Mcg/0.3 Ml Dose (P fizer) 07/08/2021 Social History Tobacco Use Types Packs/Day Years Used Date Smoking Tobacco: Never Assessed Comments Unknown Sex and Gender Information Value Date Recorded Sex Assigned at Not on file Legal Sex Female 11:02 AM BRICK TENDER Gender Identity Not on file Sexual Orientation Not on file Plan of Treatment Health Maintenance Due Date Last Done Comments Hepatitis C Virus (HCV) Screening 1966 Hepatitis B Immunization (1 of 3 - 19+ 3-dose series) 1985 Colonoscopy 2011 Colorectal Cancer Screening 2011 Cologuard 2016 Immunochemical Fecal Occult Blood 2016 Pneumococcal Immunization (5 0+ years) (2 of 2 - PPSV23) 09/22/2019 09/22/2018 SARS-COV-2 Immunization ( season) 2024 07/08/2021, 10/25/2020, 10/03/2020 Influenza Immunization (Seas on Ended) 2025 05/22/2021, 04/20/2020 Respiratory Syncytial Virus (RSV) Immunization (Adult) (1 - 1-dose 75+ series) 2041 DTaP/Tdap/Td Immunization Discontinued 03/04/2014 TdaP Immunization Completed 03/04/2014 Pneumococcal Immunization Combined Discontinued 09/22/2018 Zoster Immunization Completed 06/14/2021, 03/08/2021 Human Papillomavirus (HPV) Immunization Aged Out No longer eligible based on patient's age to complete this topic Meningococcal Immunization (ACWY) Aged Out No longer eligible based on patient's age to complete this topic Rotavirus Immunization Aged Out No lo nger eligible based on patient's age to complete this topic
--- OUTSIDE RECORDS SUMMARY | 2025-01-12 16:08 | XMS_ITS | Referral Summary ---
Author Organization [facility] Address [address] [place] [address] Care Team Providers Care Blueprint Reproducer Name Role Phone Elodia Brunson NP Primary Care Provider [phone] Encounters Date Type Department Care Team Description 01/07/2025 Orders Only [facility] Health Information Management [address] [place] [address] Elodia Brunson NP 12/24/2024 Orders Only [facility] Health Information Management [address] [place] [address] Scanning, Provider 10/21/2024 Telephone [facility] Medical Group Primary Care at [address] [phone] Elodia Brunson NP 10/20/2024 Telephone [facility] Primary Care at [address] [phone] Elodia Brunson NP Recommendation Request 10/16/2024 Results Follow-Up [facility] Medical Group [facility] Care at [address] [phone] Ann Larsen NP Urine culture Urine, clean voided 10/15/2024 9:31 PM CDT - 10/15/2024 11:59 PM CDT Hospital Encounter [place] [id number] UTI symptoms Discharge Disposition: Discharge to home or self care 10/15/2024 Telephone [facility] Medical [facility] at [address] [phone] Ann Larsen NP Blood in Urine 10/15/2024 4:30 PM CDT Office Visit [facility] at [address] [phone] Ann Larsen NP UTI symptoms (Primary Dx); Gross hematuria 10/15/2024 Nurse Triage [facility] Primary Care at [address] [place] [address] Susan Bradford RN from Last [...] 06/16/2024 Assessment & Plan (06/16/2024 7:40 AM FAMILY SERVICE AIDE): Diabetic foot exam performed with monofilament, no abnormal findings Class 3 severe obesity due t o excess calories with body mass index (BMI) of 45.0 to 49.9 in adult 06/15/2024 Assessment & Plan (06/15/2024 11:19 AM FAMILY SERVICE AIDE): Chronic, stable Encouraged to: Make healthy food choices, limiting intake of concentrated sweets, cholesterol, and saturated fat Monitor daily caloric intake and portion sizes Exercise most days of the week for a goal of at least 150 minutes of exercise per week Encounter for screening mamm ogram for malignant neoplasm of breast 07/10/2023 Elevated ALT measurement 07/10/2023 Assessment & Plan (06/15/2024 11:19 AM FAMILY SERVICE AIDE): Chronic, stable Encouraged continued weight loss and a low-fat, low-cholesterol diet Will monitor for stability Assessment & Plan (07/10/2023 4:15 AM FAMILY SERVICE AIDE): Chronic, recurrent, normal at last check Reviewed lab results dated 07/05/2023 Encouraged continued weight loss, low-fat, low-cholesterol diet Ordered CMP to be done prior to next visit Vitamin D deficiency 01/09/2023 Assessment & Plan (06/15/2024 11:17 AM FAMILY SERVICE AIDE): Chronic, stable, not controlled Recommended vitamin D3 5000 IU daily with a meal Will monitor for stability Assessment & Plan (07/10/2023 4:18 AM FAMILY SERVICE AIDE): Chronic, improved Reviewed labs dated 07/05/2023 Recommended [...] 01/09/2023 Assessment & Plan (06/15/2024 11:18 AM FAMILY SERVICE AIDE): Chronicity unknown, normal at most recent check Will monitor for stability Assessment & Plan (07/10/2023 4:15 AM FAMILY SERVICE AIDE): New diagnosis, normal at most recent check [...] (10/10/2022): Added automatically from request for surgery [id number] Assessment & Plan (01/09/2023 5:21 AM CDT): Encouraged to get screening colonoscopies as recommended by tape recorder mechanic. Encounter for vitamin deficiency screening 06/26 Assessment & Plan (06/27/2022 12:30 AM FAMILY SERVICE AIDE): Ordered vitamin-D 25 OH. Screening for deficiency anemia 06/26/2022 Assessment & Plan (06/27/2022 12:25 AM FAMILY SERVICE AIDE): Ordered CBC. 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 Assessment & Plan (06/27/2022 12:25 AM FAMILY SERVICE AIDE): Chronic, stable, controlled with medication-continued on Valtrex as directed as needed, refills sent to pharmacy per request. Need for vaccination 06/26/2022 Assessment & Plan (06/27/2022 12:27 AM FAMILY SERVICE AIDE): Influenza vaccine given. Chronic pain of both knees 10/18/2021 Assessment & Plan (06/15/2024 11:17 AM FAMILY SERVICE AIDE): Chronic, stable Continued on meloxicam Can refer [...] 03/09/2021 Assessment & Plan (06/15/2024 11:16 AM FAMILY SERVICE AIDE): Chronic, uncontrolled/worsened, not on medication Discussed options for treatment, is considering Encouraged weight loss efforts Assessment & Plan (07/10/2023 4:17 AM FAMILY SERVICE AIDE): Chronic, stable Reviewed most recent hemoglobin A1c dated 12/17/2022 Encouraged continued weight loss Ordered CMP and hemoglobin A1c to be done prior to next Assessment & Plan (01/09/2023 5:27 AM CDT): Chronic, stable-encouraged weight loss efforts. Reviewed recent CMP and hemoglobin A1c at visit today. Assessment & Plan (06/27/2022 12:29 AM FAMILY SERVICE AIDE): Chronic, improved with weight loss-ordered hemoglobin A1c and CMP to be done prior to next visit. Encouraged efforts at continued weight loss. Assessment & Plan (06/14/2021 3:42 PM FAMILY SERVICE AIDE): ha1c is 5.8 today- cont saxenda Assessment & Plan (03/09/2021 8:39 AM CDT): ha1c has decreased from 6.4>5.9- this is a tremendous improvement! Cont debra. Annual physical exam 09/22/2019 Assessment & Plan (06/15/2024 11:13 AM FAMILY SERVICE AIDE): Reviewed past and current medical history, surgical [...] needed. Assessment & Plan (06/14/2021 3:42 PM FAMILY SERVICE AIDE): Second shingrix given today Advise mrna booster in 1-2 weeks after shingrix utd on flu shot, tdap Cont to work on diet and weight loss rtc 4 months Assessment & Plan (09/22/2019 3:17 PM FAMILY SERVICE AIDE): Wear sunscreen while outdoors. Wear seatbelts while [...] 09/22/2019 Assessment & Plan (06/15/2024 11:14 AM FAMILY SERVICE AIDE): Chronic, episodic, currently asymptomatic Will monitor for stability Encouraged to elevate legs when able and to wear compression socks or stockings Assessment & Plan (01/09/2023 5:33 AM CDT): Chronic, stasis-will continue to monitor for worsening symptoms or edema. Encouraged elevation of extremities when able and compression socks or stockings. Assessment & Plan (09/22/2019 3:52 PM FAMILY SERVICE AIDE): Work on wt loss Get up and move around while at work ,periodically Wear compression stockings when travelling long distance History of basal cell carcinoma (BCC) of skin Overview (09/22/2019): r upper arm, Dr Davis Assessment & Plan (01/09/2023 5:28 AM CDT): Encouraged to follow-up with dermatology as recommended. Assessment & Plan (09/22/2019 3:53 PM FAMILY SERVICE AIDE): Sunscreen Cont close surveillance with information delivery analyst Non-seasonal allergic rhinitis 09/22/2018 Overview (09/22/2019): Allergic to dust and mold Assessment & Plan (06/15/2024 11:11 AM FAMILY SERVICE AIDE): Chronic, stable, controlled with medication Continued on Clarinex Assessment & Plan (01/09/2023 5:32 AM CDT): Chronic, stable, controlled with medication-continued on Clarinex. Assessment & Plan (09/22/2019 3:36 PM FAMILY SERVICE AIDE): Cont clarinex daily Mixed hyperlipidemia 09/23/2017 Assessment & Plan (06/15/2024 11:12 AM FAMILY SERVICE AIDE): Chronic, uncontrolled, with minimally elevated triglycerides and low HDL Continued on atorvastatin Recommended low-fat/low-cholesterol diet, high in fiber and plant protein Assessment & Plan (07/10/2023 4:16 AM FAMILY SERVICE AIDE): Chronic, uncontrolled, with minimally elevated triglycerides and [...] lipids. Assessment & Plan (06/27/2022 12:26 AM FAMILY SERVICE AIDE): Chronic, stable, with slight elevation in triglycerides at last check-continued on simvastatin. Lipid panel ordered prior to next visit. Assessment & Plan (02/23/2022 10:53 AM CDT): c Assessment & Plan (06/14/2021 3:40 PM FAMILY SERVICE AIDE): Suspect cholesterol will be much better, check now, dec dose if possible and recheck before our next appt in 4 months at which time I Hope to stop it Assessment & Plan (05/06/2020 3:16 PM CDT): Cont low chol diet and medication Cont to monitor liver panel Assessment & Plan (09/22/2019 3:38 PM FAMILY SERVICE AIDE): Take the chol pill daily in am. Lipids in 6mos Essential (primary) hypertension 09/19/2017 Assessment & Plan (06/15/2024 11:11 AM FAMILY SERVICE AIDE): Chronic, stable, controlled with medication Continued on bisoprolol Assessment & Plan (01/23/2024 12:30 PM CDT): Chronic, stable, controlled with medication Continued on bisoprolol Assessment & Plan (07/10/2023 4:15 AM FAMILY SERVICE AIDE): Chronic, stable, controlled with medication Continued on bisoprolol Ordered CMP be done prior to next visit Assessment & Plan (01/09/2023 5:19 AM CDT): Chronic, stable, controlled with medication-reviewed recent CMP. Continued on bisoprolol. Assessment & Plan (06/27/2022 12:28 AM FAMILY SERVICE AIDE): Chronic, stable, controlled with medication-continued bisoprolol. Ordered CMP to be done prior to next visit. Assessment & Plan (02/23/2022 10:52 AM CDT): Controlled on bisoprolol Assessment & Plan (06/14/2021 3:40 PM FAMILY SERVICE AIDE): Looking great! With weight loss, d/c hctz [...] health Assessment & Plan (09/22/2019 3:36 PM FAMILY SERVICE AIDE): Follow low sodium DASH Diet. Exercise regularly [...] 09/19/2017 Assessment & Plan (06/15/2024 11:13 AM FAMILY SERVICE AIDE): Chronic, stable, controlled without medication Will monitor for stability Assessment & Plan (01/09/2023 5:32 AM CDT): Chronic, stable, controlled without medication-will continue to monitor for worsening symptoms,if occurs and is interested, can refer for pelvic floor physical therapy, consider medication, and/or refer to space and storage clerk for further evaluation and management. Personal history of colon cancer, stage II 09/19 Overview (09/22/2019): no chemo/rx, just removal of the tumors and ff up areas tatood, age 38, 3 large polyps cancerous removed. Colonoscopy 05/2010, Dr Reynolds. Assessment & Plan (01/09/2023 5:26 AM CDT): Encouraged to get screening colonoscopy as recommended by tape recorder mechanic. Assessment & Plan (06/14/2021 3:41 PM FAMILY SERVICE AIDE): Repeat is due 11/2022 Assessment & Plan (09/22/2019 3:35 PM FAMILY SERVICE AIDE): Patient to check with Dr Reynolds as [...] 07/10/2023 Assessment & Plan (06/11/2023 10:35 AM FAMILY SERVICE AIDE): VSS (low grade temp 99.5F), NAD, lungs CTAB Sx duration 2.5 weeks approximately Recent COVID 05/23/2023 Possible bronchitis . Ddx secondary bacterial PNA post COVID Medrol dose pack Augmentin, azithromycin Tessalon as needed as cough suppressant ER for CP, SOB, vomiting, dizziness, persisting fevers Colon polyps 10/10/2022 01/09/2023 Overview (10/10/2022): Added automatically from request for surgery [id number] Encounter to establish care 06/26/2022 01/09/2023 Assessment & Plan (06/27/2022 12:30 AM FAMILY SERVICE AIDE): Reviewed past and current medical history, surgical [...] 01/09/2023 Assessment & Plan (06/27/2022 12:25 AM FAMILY SERVICE AIDE): Chronic, present in 2019 and 2020, now resolved upon most recent check, likely improved with weight loss-will continue to monitor periodically. Encouraged continued weight loss. Assessment & Plan (01/05/2021 12:36 PM CDT): On statin Has had weight gain Liver us to further investigate Croup 09/22/2019 05/05/2020 Assessment & Plan (09/22/2019 3:51 PM FAMILY SERVICE AIDE): Doxycycline 100mg po bid x 10d Coricidin [...] on file Legal Sex Female 6:21 AM FAMILY SERVICE AIDE Gender Identity Female 12/29/2020 6:34 AM CDT Sexual Orientation Straight 10/04/2020 6: 47 AM FAMILY SERVICE AIDE Occupation Industry Job Start Date Job End [...] 155.5 cm (5' 1.22) 10/15/2024 4:24 PM C DT Body Mass Index 49.71 10/15/2024 4:24 PM [...] Read Routine (OP Routine) 07/27/2024 1:17 PM FAMILY SERVICE AIDE Screening mammogram, encounter for COMPREHENSIVE METABOLIC PANEL [...] hyperlipidemia COLONOSCOPY 12/14/2022 8:07 AM CDT THINPREP REDUCING SYSTEM OPERATOR PAP (IMAGE GUIDED) LIQUID-BASED PREP Routine 10/03/2017 3:52 PM FAMILY SERVICE AIDE from Last 3 Months or Most Recently Relevant to Health Maintenance Results * SCAN - RADIOLOGY/IMAGING (01/07/2025 9:17 PM CDT) Anatomical Region Laterality Modality Other us Elodia Brunson NP Final Result * SCAN - RADIOLOGY/IMAGING (12/24/2024 9:17 PM CDT) Anatomical Region Laterality Modality Other us Provider Scanning Final Result * Urine culture Urine, clean voided (10/15/2024 9:35 PM CDT) Report Final Report: Less than 100,000 colonies/mL (clinically insignificant growth based on current clinical standards) Organism (CLINICALLY INSIGNIFICANT GROWTH [facility] Urine, clean voided 10/15/2024 9:35 PM CDT 10/15/2024 9:47 PM CDT Narrative [facility] - 10/17/2024 8:33 AM CDT Testing performed by [facility] ([phone]) Ann Larsen NP LAB MICROBIOLOGY - [facility] Final Result [facility] Department [place] [address] * (ABNORMAL) POCT urinalysis dipstick (10/15/2024 4:40 PM CDT) Color, Urine, POC Dark Yellow Clarity, ur, POC Turbid(A) Clear Glucose, ur, POC Negative Negative MG/DL Bilirubin, ur, POC Small Negative, Small, Moderate, Large Ketones, ur, POC Negative Negative Specific Mobile, POC 1.030 1.003 - 1.030 Blood, ur, POC Large(A) Negative pH, ur, POC 5.5 5.0 - 8.0 Protein, ur, POC 300.(A) Negative Urobilinogen, urine, POC 0.2 0.2 - 1.0 mg/dL Nitrite, ur, POC Negative Negative Leukocytes, ur, POC Trace(A) Negative Lot Number [id number] Urine 10/15/2024 4:40 PM CDT Ann Larsen NP POINT OF CARE TEST ORDERABLES F inal Result * Screening Mammogram Bilateral [place] (07/27/2024 1:17 PM FAMILY SERVICE AIDE) Anatomical Region Laterality Modality Breast Bilateral Mammography Impressions 07/27/2024 1:29 PM FAMILY SERVICE AIDE BI-RADS ATLAS category (overall): 2 - Benign There is no mammographic evidence of malignancy. A 1 year screening mammogram is recommended. The patient has been or will be contacted. We recommend annual screening mammography for women at average risk of breast cancer beginning at age 40, based on guidelines of the [employer] (ACR Practice Parameter for the Performance of Screening and Diagnostic Mammography) and [employer]nec[employer]. For women with and elevated risk of breast cancer, please refer to the ACR Practice Parameter for specific screening recommendations. The patient will be entered into a reminder system with a target due date of 1 year for her next screening exam. Narrative 07/27/2024 1:29 PM FAMILY SERVICE AIDE Screening Mammogram Bilateral [place]: 07/27/24 The [...] A1C 7.0(H) <5.7 % of total Hgb Desmos- thomas Sarmiento Comment: For someone without known diabetes, [...] NP LAB BLOOD ORDERABLES Final Resul t [facility] Organization Address City/State/ZIP Co de Phone Number [facility] [address] [place] [address] * (ABNORMAL) Lipid panel (05/23/2024 8:50 AM [...] LDL-C. Justus GANDHI et al. DANGELO. 2013;310(19): 1729-5071 (http://education.C[employer]/faq/BPP173) Chol/HDL ratio 3.7 <5.0 (calc) [facility] [...] AM CDT FASTING:YES FASTING: YES Elodia Brunson LITERATURE PROFESSOR LAB BLOOD ORDERABLES Final Resul t [facility] [address] [place] [address] * (ABNORMAL) Comprehensive metabolic panel (05/23/2024 8:50 AM CDT) [facility] Glucose 105(H) 65 - 99 mg/dL [facility] [...] CDT FASTING:YES FASTING: YES us Elodia Brunson LITERATURE PROFESSOR LAB BLOOD ORDERABLES Final Resul t [facility] [address] [facility] [place] [address] * COLONOSCOPY (12/14/2022 8:07 AM CDT) Anatomical Region Laterality Modality Other Narrative Procedure Note Lamin Reynolds MD - 12/14/2022 8:07 AM CDT [facility] Patient Name: Madhavi Banuelos Procedure Date: 12/14/2022 8:07 AM Date of : 1965 Admit Type: Outpatient Age: 57 Gender: Female Attending MD: Lamin Reynolds M.D. Room: [facility] ENDOSCOPY ROOM 02 Note Status: Finalized [...] The scope was passed under direct vision.The [id number] was introduced through the anusand advanced to [...] On: 12/14/2022 8:07 AM Recognized by the [employer] for promoting quality in endoscopy Lamin Reynolds MD ENDOSCOPY PROCEDURES Final Res ult * ThinPrep Gynecologic Pap Test (Image-guided), Liquid-based Preparation (10/03/2017 3:52 PM FAMILY SERVICE AIDE) CLINICAL INFORMATION [facility] HISTORICAL RESULTS Comment:Hysterectomy LMP: HYST [facility] HISTORICAL RESULTS PREV. PAP: [facility] HISTORICAL RESULTS Comment:Information not prov ided PREV. BX: [facility] Comment:Information not prov ided SOURCE: [facility] HISTORICAL RESULTS Comment:Vaginal cuff STATEMENT OF ADEQUACY: [facility]IST[facility]ULTS Comment:SATISFACTORY FOR PEACE LUATION INTERPRETATION/RESU LT: [facility] HISTORICAL RESULTS Comment:Negative for intraep ithelial lesion or malignancy. COMMENT: [facility] HISTORICAL RESULTS Comment:This Pap test has be en evaluated with computer assisted technology. TOOLSMITH: [facility] HISTORICAL RESULTS Comment:LMT, CT(ASCP) CT scr eening location: [facility] [address] [place] [address] 10/03/2017 3:52 PM FAMILY SERVICE AIDE 10/12/2017 12:10 AM FAMILY SERVICE AIDE Narrative [facility] HISTORICAL RESULTS - 10/11/2017 11:44 PM FAMILY SERVICE AIDE 0 PERFORMING LAB: [place], [facility] [address] [address] [facility] [address] Abigail Baker MD us Marcia Resendiz MD LAB PATHOLOGY ORDERABLES Fin al Result [facility] HIST[facility]ICAL RESULTS from Last 3 Months or Most Recently Relevant to Health Maintenance Insurance Retty OOS Member Subscriber Plan / Payer (Ef fective 2013-Present) Name:Madhavi Banuelos Relation to Subscriber:Self Name:Madhavi Banuelos Payer ID:[id number] (NAIC) Type:[facility] Address: [address] [place] [id number] CIGNA IBEW CIGNA IBEW BLUE ACCESS OOS CIGNA IBEW BLUE ACCESS OOS Advance Directives For more information, please contact: [phone] * Full Code (Latest Code Status on File) Date Activated Date Inactivated Comments 12/14/2022 8:07 AM 12/14/2022 1:15 PM Care Teams Blueprint Reproducer Relationship Specialty Start Date End Date Elodia Brunson NP [address] [place] [address] PCP - General Family Practice 06/22/22
--- OUTSIDE RECORDS SUMMARY | 2025-01-12 16:08 | XMS_ITS | Encounter Summary ---
Author Organization [facility] Address [address] [place] [address] Care Team Providers Care Rn Surgical Name Role Phone Unavailable Primary Care Provider Unavailabl e Encounter Details Date Type Department Care Team (Late st Contact Info) Description 05/05/2019 Lab Requisition [facility] Derm[facility] [address] [facility] [place] [address] Lupe Davis DO [address] [facility] [address] [place] [address] Social History Tobacco Use Types Packs/Day Years [...] AM CDT) Case Report Dermatopathology Report Case: [id number] Authorizing Provider: Lupe Davis DO Collected: 05/04/2019 12:00 AM Ordering Location: [facility] Received: 05/05/2019 12:15 PM [...] proximal: ACTINIC KERATOSIS, LICHENOID (L57.0) 1:21 PM [facility] DERMATOPATHOLOGY [facility]ORATORY at 1321 CDT Clinical History A-B: R/O NMSC. C: R/O MM. D: R/O NMSC. 1:21 PM [facility] DERMATOPATHOLOGY [facility]ORATORY Gross Description Specimen A: Received is one formalin filled container labeled with the patient's name and designated right upper arm. The specimen consists of a shave measuring [id number]. Jar 0. Specimen B: Received is one formalin filled container labeled with the patient's name and designated right forearm. The specimen consists of a shave measuring [id number]. Jar 0. Specimen C: Received is one formalin filled container labeled with the patient's name and designated left FA distal. The specimen consists of a shave measuring [id number]. Jar 0. Specimen D: Received is one formalin filled container labeled with the patient's name and designated left FA proximal. The specimen consists of a shave measuring [id number]. Jar 0. 1:21 PM [facility] DERMATOPATHOLOGY [facility]ORATORY Microscopic Description Specimen A. [...] determined by the Dermatopathology Laboratory at [facility], directed by Dr. Verónica Mendoza. These tests need not be, and therefore are not, approved by the [place] Food and Drug Administration. The tests are used for clinical purposes. Billing Codes Specimen Charges Stain Charges 21773 [id number] 1 1 1 1 9 1:21 PM [...] - PATHOLOGY/CYTOLOGY ORDERABLES Final Result DERMATOPATHOLOGY LABORATORY [facility] - Department of Dermatology [address] [place] [address] 5[address] [place] [address], [facility] [phone] documented in this encounter Visit Diagnoses Not on filedocumented in this encounter
== END 2025-01-12 14:41 | disposition home or self-care (01) ==
LOC: ANHIMG 14:43
PROVIDERS: PCP Family Medicine; Visit Provider Urology
DX: N20.0 Calculus of kidney (principal); Z96.0 Presence of urogenital implants
CPT/HCPCS: 74018

== ENCOUNTER 2025-01-28 01:16 | Day surgery (SDC) | payer BC, OTHER, SELFPAY ==
--- NOTE | 2025-01-26 09:21 | PC.NURSE ---
Report to the Outpatient Waiting Room, entrance under the green pavilion located off [facility], at time _0745_ on date _[id number]_. Planned Procedure Time: _0945_.? Time changes happen often and if your time is changed the preop area will call you the afternoon before. - You and your visitor will be asked to self-screen and do not enter if you have any COVID symptoms. Please call surgeon if you need to reschedule. - A mask is optional within the hospital at this time. Patients may have clear liquids (water, carbonated beverages, clear teas, apple juice) until 3 hours prior to surgery with a maximum of 20 ounces. - No food from midnight until time of surgery and no smoking, or chewing tobacco (or any form of nicotine). No chewing gum, candy or mints. Take only the following medications with a SIP of water on the morning of surgery: ___Bisoprolol fumarate___ DO NOT STOP ANY OF YOUR OTHER PRESCRIPTION MEDICATIONS PRIOR TO SURGERY EXCEPT THE FOLLOWING Hold all vitamins and supplements for 3 days per anesthesiologist. Medications to discontinue per physician Date to take last dose____ Please no make-up, nail luxembourger, hairspray, perfume, deodorant, or body powder the day of surgery.? No jewelry (including any body piercings) or valuables the day of surgery, leave them at home.? Please take a shower or bath the night before, or the morning of, surgery with an antibacterial soap.? Wear comfortable, loose fitting clothing.? - Jewelry must be removed prior to entering the operating room.? Rings and piercings that are not removed may be cut off. - The hospital will not accept responsibility for valuables.? - Please leave all valuables, including medications, at home the day of surgery. If you are going home after surgery, a licensed driver operator must drive you home.? - NO public transportation without another adult if you receive anesthesia. - We recommend that an adult stay with you for 24 hours following discharge. - We also recommend that you do not drive, make important decision, drink alcoholic beverages, or take any drugs that were not prescribed by your health care provider for at least 24 hours after your discharge time. Follow any additional instructions given to you from your surgeon. Telephone instructions given to __Michelle__and asked if any additional questions and then verbalized understanding. Patient advised to call surgeon office or pre surgery nurse liaison [phone] if any additional questions.
[2025-01-26 09:28] VITALS: BMI 51.2
[2025-01-28] VITALS (8 sets, daily range): BP systolic 137–153; BP diastolic 83–98; PULSE 72–84; RESP 14–20; TEMP 36.5–37; O2SAT 94–99; BMI 51.6
--- NOTE | ~2025-01-28 | XR_ITS ---
EXAMINATION: XR retrograde pyelo w/stent LT DATE: 01/28/2025 10:06 INDICATION: Nephrolithiasis. TECHNIQUE: 45 fluoroscopic images of the abdomen and pelvis were obtained during procedure performed by Dr. Carranza. Radiologist was not present for the imaging or procedure. The amount of fluoroscopy ti me used during this procedure was 0.6 minutes. Total DAP was 1.57 mGym^2. COMPARISON: KUB dated 01/12/2025 FINDINGS: Cannula and wire advanced into the left renal collecting system. Stone versus stone fragments are nghia ntified at the left renal pelvis and lower pole calyx. Retrograde contrast injection demonstrates mil d left hydronephrosis. Final images demonstrate placement of a left intraureteral stent with loops fo rmed in the left renal pelvis and in the bladder. Surgical clips in the right lower quadrant. IMPRESSION: 1. Stones or stone fragments in the left kidney with mild left hydronephrosis. 2. Placement of a left intraureteral stent which is in expected position. See procedure note for furt her detail. Reviewed, dictated and finalized at location A. IMPRESSION: 1. Stones or stone fragments in the left kidney with mild left hydronephrosis. 2. Placement of a left intraureteral stent which is in expected position. See p rocedure note for further detail.
--- NOTE | 2025-01-28 06:15 | WPDHPUPDATE1 ---
History and Physical Update Update Date/Time: 01/28/25 06:15 History and Physical has been reviewed, including an updated exam of the patient. There are NO changes in the patient's condition. Risks, benefits, and alternatives have been discussed and questions answered. Patient agrees to proceed with procedure.
--- NOTE | 2025-01-28 07:28 | WPDANESEPPF ---
Anes - Initial Pre Proc Eval Procedure: Operation Date: 01/28/25 09:45 Proposed Procedures p Cystoscopy, Left Ureteroscopy with Holmium Laser Lithotripsy, Left Stone Extraction, Possible Left Retrograde Pyelogram, Left Stent Placement - Manny Carranza MD Date/Time: 01/28/25 07:28 Surgeon: Manny Carranza MD Pre Op Diagnosis: Left Kidney Stones Patient Data Age: 59 Gender: F Height: 1.52 m Weight: 119 kg Allergies Allergy/AdvReac Type Severity Reaction Status Date / Time No Known Allergies Allergy Verified 01/28/25 08:09 Home Medications ?Medication ?Instructions ?Recorded ?Confirmed ?Type atorvastatin 20 mg tablet 20 mg PO DAILY 12/14/24 01/28/25 History bisoprolol fumarate 5 mg tablet 5 mg PO DAILY 12/14/24 01/28/25 History desloratadine 5 mg tablet 5 mg PO DAILY 12/14/24 01/26/25 History (Clarinex) meloxicam 15 mg tablet 15 mg PO DAILY 12/14/24 01/26/25 History hydrocodone 5 mg-acetaminophen 325 1 - 2 tablet PO Q6H PRN pain #20 12/23/24 01/26/25 Rx mg tablet tabs Patient hx anesthesia problems: none Family hx anesthesia problems: none Results Review: All pre-operative results and documents have been reviewed as part of the pre-operative evaluation. [facility] Past Medical History Medical History Pre-diabetes Hyperlipidemia Hypertension Morbid (severe) obesity with alveolar hypoventilation Bilateral kidney stones Social History Social History Smoking status: Never smoker Living arrangements: with family Spiritual care concerns: No Anes - Eval Final PreProcedure Day of Procedure 01/28/25 07:28 Patient weight: super morbidly obese Heart: regular rate and rhythm Lungs: clear to auscultation Airway: Mallampati scale class III Neurological: alert and oriented Last oral intake: >/= 8 hours ASA classification: III Emergent: no Anesthetic plan: proceed Anesthesia type and monitoring: general LMA and standard monitoring Results Review: All pre-operative results and documents have been reviewed as part of the pre-operative evaluation. Informed Consent: The patient's anesthetic plan and its attendant risks and benefits were discussed with the patient/family/POA. Questions were solicited and answers provided to the satisfaction of the patient/family/POA.
[2025-01-28] MEDS: LACTATED RINGERS 1,000 ML 30 ML IV CONT (08:10)
--- NOTE | 2025-01-28 09:47 | S_PTH ---
PATIENT: Michelle Goetz LOC: [facility] U#:[id number] AGE/SX: 59/F ROOM: RE01/28/[address]: Manny Carranza MD : 1965 BED: DIS: 01/28/2025 SPEC #: [id number] RECD: 01/28/25 11:27 STATUS: EVERT RELuis Felipe #: [id number] DONALD: 01/28/25 09:[address]: Manny Carranza DEPT: [facility] Surgical RECD BY: Britney Groves ENTERED: 01/28/25 11:28 SP TYPE: Surgical OTHR DR: Elodia Brunson, MEDICAL BILLING INSTRUCTOR Tissues: A - Stone Procedures: Gross Exam Level 1 Crystalline Analysis
--- NOTE | 2025-01-28 10:10 | W.PM.PROC2 ---
Procedure Note - Detailed Date of Procedure 01/28/25 Pre-op Diagnosis Left Kidney Stones Post-op Diagnosis Same Procedure Performed Cystoscopy, left ureteral stent removal, left ureteroscopy with laser lithotripsy, stone extraction, retrograde pyelogram and stent replacement Surgeon Manny Carranza MD Anesthesia General Description of Procedure Patient is brought to the operative suite where she has prepped draped in routine sterile fashion while in dorsal lithotomy position after the uneventful induction of a general LMA anesthetic. Cystoscopy was undertaken with a 21 F rigid cystoscope. The tip of the indwelling stent is grasped and the stent is removed with ease. A 0.035 in glidewire was advanced in the left renal pelvis. Distal ureter was dilated with an 8 F 10 F dilator. A 2nd guidewire was placed as a safety wire. A 11 F/14 F ureteral access sheath was placed. Ureteroscopy was undertaken with a 7.5 F digital ureteral scope. The large renal pelvic stone is identified. She is placed in a slight Trendelenburg position so chips migrate into an upper pole calyx as we perform laser lithotripsy with a 200 micron holmium laser fiber. The stone is dusted in the sizable fragments were removed with a 0.9 F disposable basket. All fragments were deemed to be 2 mm or less. The ureteroscope was removed and a retrograde pyelogram was obtained to ensure no extravasation of contrast and ensure appropriate placement of a 4.8 F double-J stent. Drains Yes Pathology Yes Complications No immediate complications Disposition PACU
[2025-01-28] MEDS: oxyCODONE HCL (*CRX) 5 MG TAB IR PO (11:08)
== END 2025-01-28 11:54 | disposition home or self-care (01) ==
PROVIDERS: PCP Family Medicine; Visit Provider Urology
PROC: (CPT 52352; principal; 2025-01-28 09:45)
DX: N20.0 Calculus of kidney (principal); E66.01 Morbid (severe) obesity due to excess calories; Z68.43 Body mass index [BMI] 50.0-59.9, adult
CPT/HCPCS: 52356; 74420; 82365; 88300; A9270; C1769; C1894; C2617; J0690; J2003; J2405; J2704; J3010; J7120; Q9966

== ENCOUNTER 2025-07-19 09:46 | Outpatient (CLI) | payer BC, SELFPAY ==
--- NOTE | ~2025-07-19 | XR_ITS ---
EXAM/PROCEDURE: XR abdomen/kub 1V HISTORY: Bilateral kidney stones COMPARISON: January 12, 2025 TECHNIQUE: KUB FINDINGS: Minimal small bowel gas present. No grossly distended loops of bowel or large amount. Surgical clips right upper quadrant. The bones appear intact. Visualized lung bases appear clear. IMPRESSION: Nonspecific bowel gas pattern with no gross acute abnormality. Reviewed, dictated and finalized at location A. FEEDER
== END 2025-07-19 09:47 | disposition home or self-care (01) ==
PROVIDERS: PCP Family Medicine; Visit Provider Urology
DX: N20.0 Calculus of kidney (principal)
CPT/HCPCS: 74018